=== PATIENT | male | born 1950 | race Caucasian/White ===

== ENCOUNTER 2022-05-10 09:55 | Outpatient (REF) | payer MEDICARE, OTHER, SELFPAY | END 2022-05-10 09:56 | disposition home or self-care (01) | LOC: HO.BBR 09:55 | PROVIDERS: Visit Provider Internal Medicine | DX: D45 Polycythemia vera (principal) | CPT/HCPCS: 85018; 99195 ==

== ENCOUNTER 2022-11-14 09:53 | Outpatient (REF) | payer MEDICARE, OTHER, SELFPAY | END 2022-11-14 09:54 | disposition home or self-care (01) | LOC: HO.BBR 09:53 | PROVIDERS: PCP Hospitalist; Visit Provider Internal Medicine | DX: D45 Polycythemia vera (principal) | CPT/HCPCS: 85018; 99195 ==

== ENCOUNTER 2023-03-13 13:47 | Outpatient (REF) | payer MEDICARE, OTHER, SELFPAY | END 2023-03-13 13:48 | disposition home or self-care (01) | LOC: HO.BBR 13:47 | PROVIDERS: PCP Hospitalist; Visit Provider Internal Medicine | DX: D75.1 Secondary polycythemia (principal) | CPT/HCPCS: 85014; 85018; 99195 ==

== ENCOUNTER 2023-06-12 13:39 | Outpatient (AMB) | payer MEDICARE, OTHER, SELFPAY ==
--- NOTE | 2023-06-12 14:08 | HO.NEPHOV ---
HPI HPI Comments History of Present Illness Details I had the privilege of seeing Chadwick in follow-up of his chronic kidney disease and hypertension. His blood sugar control is better. His blood pressure has been at goal. He has gained weight. He denies any chest pain, shortness of breath, proximal nocturnal dyspnea, orthopnea or pedal edema. He has no urinary symptoms. He is compliant with his medications. He avoids nonsteroidal anti-inflammatory medications. There were no new active complaints at the time this office visit. [facility] Medical History (Updated 06/25/23 @ 22:12 by Linwood Coyle MD) Chronic kidney disease, stage 3a Hypertension Surgical History (Updated 06/12/23 @ 14:17 by Arabella Patton MA) History of cataract surgery History of appendectomy H/O aortic valve replacement Hx of CABG Family History (Updated 06/12/23 @ 14:18 by Arabella Patton MA) Mother Aneurysm Father Heart attack Social History (Updated 06/12/23 @ 14:17 by Arabella Patton MA) Alcohol intake: never Patient Tobacco Use Status: Never used Tobacco Vital Signs 06/12/23 14:11 Height 5 ft 8 in Weight 189 lb BMI 28.7 BP 110/70 Blood Pressure Location Lt brachial Position Sitting Pulse 72 Pulse Source Pulse Oximeter Physical Exam Vital Signs: Last Vital Signs Pulse 72 06/12/23 14:11 BP 110/70 06/12/23 14:11 BMI result Body Mass Index 28.7 Const General: comfortable and no acute distress Orientation/consciousness: patient oriented x3 HEENT Head: Yes normocephalic Mouth: Normal oral and palatal mucosa present Eyes EOM: EOMs intact bilaterally Neck Neck: Yes supple Resp Auscultation: clear to auscultation bilaterally Cardio Jugular venous distension: no JVD Rate: regular rate Heart sounds: Murmur heart sound present GI Palpation (GI): Soft to palpation Auscultation: normal bowel sounds General: Yes no CVA tenderness Back/Spine/Pelvis Back: no CVA tenderness Skin General skin exam: no rashes or lesions noted Neuro General: patient oriented x3 and moves all extremities Extrem General: Yes no pedal edema Assessment & Plan Assessment & Plan (1) CKD (chronic kidney disease) stage 3, GFR 30-59 ml/min: Code(s): N18.30 - Chronic kidney disease, stage 3 unspecified Qualifiers: Chronic kidney disease stage 3 subtype: stage 3a (GFR 45-59) Qualified Code(s): N18.31 - Chronic kidney disease, stage 3a (2) Hypertension: Code(s): I10 - Essential (primary) hypertension Qualifiers: Hypertension type: primary hypertension Qualified Code(s): I10 - Essential (primary) hypertension (3) Diabetic nephropathy: Code(s): E11.21 - Type 2 diabetes mellitus with diabetic nephropathy Qualifiers: Diabetes mellitus type: type 2 Qualified Code(s): E11.21 - Type 2 diabetes mellitus with diabetic nephropathy Plan 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 He does not have any worsening proteinuria. His blood pressure is at goal at home. He is on Jardiance. He avoids nonsteroidal anti-inflammatories. He maintains good hydration. He is on statins. He is on Entresto as well. I did not make any medication changes today. Follow-up blood work ordered. Answered all questions. Follow-up appointment given. Orders: Orders Electrolytes 06/12/23 N18.30 - Chronic kidney disease, stage 3 unspecified, I10 - Essential (primary) hypertension Blood Urea Nitrogen 06/12/23 N18.30 - Chronic kidney disease, stage 3 unspecified, I10 - Essential (primary) hypertension Creatinine 06/12/23 N18.30 - Chronic kidney disease, stage 3 unspecified, I10 - Essential (primary) hypertension Calcium 06/12/23 N18.30 - Chronic kidney disease, stage 3 unspecified, I10 - Essential (primary) hypertension Vitamin D 25-OH Total 06/12/23 N18.30 - Chronic kidney disease, stage 3 unspecified, I10 - Essential (primary) hypertension Phosphorus 06/12/23 N18.30 - Chronic kidney disease, stage 3 unspecified, I10 - Essential (primary) hypertension Parathyroid Hormone Intact 06/12/23 N18.30 - Chronic kidney disease, stage 3 unspecified, I10 - Essential (primary) hypertension Medications: New cholecalciferol (vitamin D3) 1,250 mcg PO QWEEK 13 tabs 1RF 90 days Coding Level of Care Code Est Pt Level 4 (77575) Diagnoses Stage 3a chronic kidney disease N18.31 Chronic kidney disease stage 3 subtype: stage 3a (GFR 45-59) Primary hypertension I10 Hypertension type: primary hypertension Diabetic nephropathy associated with type 2 diabetes mellitus E11.21 Diabetes mellitus type: type 2 Results Reviewed Nephrology Results: No Data to Display
[2023-06-12 14:11] VITALS: BP 110/70; PULSE 72; BMI 28.7
== END 2023-06-12 14:44 | disposition home or self-care (01) ==
PROVIDERS: PCP Hospitalist; Visit Provider Internal Medicine Nephrology
DX: N18.31 Chronic kidney disease, stage 3a (principal); I10 Essential (primary) hypertension; E11.21 Type 2 diabetes mellitus with diabetic nephropathy
CPT/HCPCS: 99214

== ENCOUNTER → 2023-06-12 13:39 | Outpatient (BNVA) | payer MEDICARE, OTHER, SELFPAY | PROVIDERS: PCP Hospitalist; Visit Provider Internal Medicine Nephrology | DX: I12.9 Hypertensive chronic kidney disease with stage 1 through stage 4 chronic kidney disease, or unspecified chronic kidney disease (principal); E11.21 Type 2 diabetes mellitus with diabetic nephropathy; N18.31 Chronic kidney disease, stage 3a; Z95.1 Presence of aortocoronary bypass graft; Z95.2 Presence of prosthetic heart valve | CPT/HCPCS: 99212 ==

== ENCOUNTER 2023-07-16 08:55 | Outpatient (REF) | payer MEDICARE, OTHER, SELFPAY | END 2023-07-16 08:56 | disposition home or self-care (01) | LOC: HO.BBR 08:55 | PROVIDERS: PCP Hospitalist; Visit Provider Internal Medicine | DX: D75.1 Secondary polycythemia (principal) | CPT/HCPCS: 85018; 99195 ==

== ENCOUNTER 2023-11-12 09:01 | Outpatient (REF) | payer MEDICARE, OTHER, SELFPAY | END 2023-11-12 09:02 | disposition home or self-care (01) | LOC: HO.BBR 09:01 | PROVIDERS: PCP Hospitalist; Visit Provider Internal Medicine | DX: D45 Polycythemia vera (principal) | CPT/HCPCS: 85014; 85018; 99195 ==

== ENCOUNTER 2023-12-13 09:26 | Outpatient (AMB) | payer MEDICARE, OTHER, SELFPAY ==
--- NOTE | 2023-12-13 09:37 | HO.NEPHOV_ITS ---
Vital Signs 12/13/23 09:38 Height 5 ft 8 in Weight 192 lb BMI 29.2 BP 100/70 Blood Pressure Location Lt brachial Position Sitting Pulse 70 Pulse Source Pulse Oximeter Pulse Oximetry (%) 96 Oxygen Delivery Method Room Air Intake Visit Reasons: 6 mo fu/ Conf Numerical Control Tool Programmer Required: No Accompanied by: Self / Same As Patient Allergies No Known Allergies Allergy (Verified 12/13/23 09:42) HPI Comments Details: I had the privilege of seeing Chadwick in follow-up of his chronic kidney disease and hypertension. His blood sugar control is better. His blood pressure has been at goal. He denies any chest pain, shortness of breath, proximal nocturnal dyspnea, orthopnea or pedal edema. He has no urinary symptoms. He is compliant with his medications. He avoids nonsteroidal anti-inflammatory medications. He has been started on Amiodarone 3 months ago by executive vice president business development. HIs serum creatinine has gone up . There were no new active complaints at the time this office visit. [facility] Medical History (Updated 12/13/23 @ 10:04 by Linwood Coyle MD) Chronic kidney disease, stage 3a Hypertension Surgical History History of cataract surgery History of appendectomy H/O aortic valve replacement Hx of CABG Family History Mother Aneurysm Father Heart attack Social History Alcohol intake: never Patient Tobacco Use Status: Never used Tobacco Physical Exam Vital Signs: Last Vital Signs Pulse 70 12/13/23 09:38 BP 100/70 12/13/23 09:38 Pulse Ox 96 12/13/23 09:38 Oxygen Delivery Method Room Air 12/13/23 09:38 BMI result Body Mass Index 29.2 Const General: comfortable and no acute distress Orientation/consciousness: patient oriented x3 HEENT Head: Yes normocephalic Mouth: Normal oral and palatal mucosa present Eyes EOM: EOMs intact bilaterally Neck Neck: Yes supple Resp Auscultation: clear to auscultation bilaterally Cardio Jugular venous distension: no JVD Rate: regular rate GI Palpation (GI): Soft to palpation Auscultation: normal bowel sounds General: Yes no CVA tenderness Back/Spine/Pelvis Back: no CVA tenderness Skin General skin exam: no rashes or lesions noted Neuro General: patient oriented x3 and moves all extremities Extrem General: Yes no pedal edema Results Reviewed Nephrology Results: No Data to Display Assessment & Plan Assessment & Plan (1) ОЛЬГА (acute kidney injury): Code(s): N17.9 - Acute kidney failure, unspecified Category: Medical (2) Diabetic nephropathy: Code(s): E11.21 - Type 2 diabetes mellitus with diabetic nephropathy Category: Medical Qualifiers: Diabetes mellitus type: type 2 Qualified Code(s): E11.21 - Type 2 diabetes mellitus with diabetic nephropathy (3) Hypertension: Code(s): I10 - Essential (primary) hypertension Category: Medical Qualifiers: Hypertension type: primary hypertension Qualified Code(s): I10 - Essential (primary) hypertension (4) CKD (chronic kidney disease) stage 3, GFR 30-59 ml/min: Code(s): N18.30 - Chronic kidney disease, stage 3 unspecified Category: Medical Qualifiers: Chronic kidney disease stage 3 subtype: stage 3a (GFR 45-59) Qualified Code(s): N18.31 - Chronic kidney disease, stage 3a Plan 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 HI serum creatinine has gone up. I reduced his lasix to 20 mg daily. He is on Entresto and Jardiance. He ne eds a F/U ECHO. WE may have to hold his Entresto if his creatinine does not settle down. He does not have any worsening proteinuria. His blood pressure is at goal at home. He is on Jardiance. He avoids nonsteroidal anti- inflammatories. He maintains good hydration. He is on statins. He is on Entresto as well. I did not make any other medication changes today. Follow-up blood work ordered. Answered all questions. Follow-up appointment given. Orders: Orders Creatinine Today E11.21 - Type 2 diabetes mellitus with diabetic nephropathy, I10 - Essential (primary) hypertension, N17.9 - Acute kidney failure, unspecified, N18.31 - Chronic kidney disease, stage 3a Blood Urea Nitrogen Today E11.21 - Type 2 diabetes mellitus with diabetic nephropathy, I10 - Essential (primary) hypertension, N17.9 - Acute kidney failure, unspecified, N18.31 - Chronic kidney disease, stage 3a Electrolytes Today E11.21 - Type 2 diabetes mellitus with diabetic nephropathy, I10 - Essential (primary) hypertension, N17.9 - Acute kidney failure, un specified, N18.31 - Chronic kidney disease, stage 3a Coding Level of Care Code Est Pt Level 4 (72915) Diagnoses ОЛЬГА (acute kidney injury) N17.9 Diabetic nephropathy associated with type 2 diabetes mellitus E11.21 Diabetes mellitus type: type 2 Primary hypertension I10 Hypertension type: primary hypertension Stage 3a chronic kidney disease N18.31 Chronic kidney disease stage 3 subtype: stage 3a (GFR 45-59)
[2023-12-13 09:38] VITALS: BP 100/70; PULSE 70; O2SAT 96; BMI 29.2
== END 2023-12-13 10:09 | disposition home or self-care (01) ==
PROVIDERS: PCP Hospitalist; Visit Provider Internal Medicine Nephrology
DX: N17.9 Acute kidney failure, unspecified (principal); E11.21 Type 2 diabetes mellitus with diabetic nephropathy; I10 Essential (primary) hypertension; N18.31 Chronic kidney disease, stage 3a
CPT/HCPCS: 99214

== ENCOUNTER → 2023-12-13 09:26 | Outpatient (BNVA) | payer MEDICARE, OTHER, SELFPAY | PROVIDERS: PCP Hospitalist; Visit Provider Internal Medicine Nephrology | DX: I12.9 Hypertensive chronic kidney disease with stage 1 through stage 4 chronic kidney disease, or unspecified chronic kidney disease (principal); E11.22 Type 2 diabetes mellitus with diabetic chronic kidney disease; N18.31 Chronic kidney disease, stage 3a; E11.21 Type 2 diabetes mellitus with diabetic nephropathy; N17.9 Acute kidney failure, unspecified | CPT/HCPCS: 99212 ==

== ENCOUNTER 2024-03-13 10:49 | Outpatient (AMB) | payer MEDICARE, OTHER, SELFPAY ==
[2024-03-13 11:15] VITALS: BP 124/72; PULSE 70; O2SAT 95; BMI 29.6
--- NOTE | 2024-03-13 11:15 | HO.NEPHOV_ITS ---
Vital Signs 03/13/24 11:15 Height 5 ft 8 in Weight 194 lb 6 oz BMI 29.6 BP 124/72 Blood Pressure Location Lt brachial Position Sitting Pulse 70 Pulse Source Pulse Oximeter Pulse Oximetry (%) 95 Oxygen Delivery Method Room Air Intake Visit Reasons: 3 mon follow up/ CON Assistant Program Director Required: No Accompanied by: Self / Same As Patient Allergies No Known Allergies Allergy (Verified 03/13/24 11:18) HPI Comments Details: I had the privilege of seeing Chadwick in follow-up of his chronic kidney disease and hypertension. His blood sugar control is better. His blood pressure has been at goal. He denies any chest pain, shortness of breath, proximal nocturnal dyspnea, orthopnea or pedal edema. He has no urinary symptoms. He is compliant with his medications. He avoids nonsteroidal anti-inflammatory medications. He has been started on levothyroxine 25 mcg daily by business process coordinator. HIs serum creatinine has gone up . There were no new active complaints at the time this office visit. [facility] Medical History (Updated 12/13/23 @ 10:04 by Linwood Coyle MD) Chronic kidney disease, stage 3a Hypertension Surgical History History of cataract surgery History of appendectomy H/O aortic valve replacement Hx of CABG Family History Mother Aneurysm Father Heart attack Social History Alcohol intake: never Patient Tobacco Use Status: Never used Tobacco Physical Exam Vital Signs: Last Vital Signs Pulse 70 03/13/24 11:15 BP 124/72 03/13/24 11:15 Pulse Ox 95 03/13/24 11:15 Oxygen Delivery Method Room Air 03/13/24 11:15 BMI result Body Mass Index 29.6 Const General: comfortable and no acute distress Orientation/consciousness: patient oriented x3 HEENT Head: Yes normocephalic Mouth: Normal oral and palatal mucosa present Eyes EOM: EOMs intact bilaterally Neck Neck: Yes supple Resp Auscultation: clear to auscultation bilaterally Cardio Jugular venous distension: no JVD Rate: regular rate GI Palpation (GI): Soft to palpation Auscultation: normal bowel sounds General: Yes no CVA tenderness Back/Spine/Pelvis Back: no CVA tenderness Skin General skin exam: no rashes or lesions noted Neuro General: patient oriented x3 and moves all extremities Extrem General: Yes no pedal edema Results Reviewed Nephrology Results: No Data to Display Assessment & Plan Assessment & Plan (1) CKD (chronic kidney disease) stage 3, GFR 30-59 ml/min: Code(s): N18.30 - Chronic kidney disease, stage 3 unspecified Category: Medical Qualifiers: Chronic kidney disease stage 3 subtype: stage 3a (GFR 45-59) Qualified Code(s): N18.31 - Chronic kidney disease, stage 3a (2) Hypertension: Code(s): I10 - Essential (primary) hypertension Category: Medical Qualifiers: Hypertension type: primary hypertension Qualified Code(s): I10 - Essential (primary) hypertension (3) Diabetic nephropathy: Code(s): E11.21 - Type 2 diabetes mellitus with diabetic nephropathy Category: Medical Qualifiers: Diabetes mellitus type: type 2 Qualified Code(s): E11.21 - Type 2 diabetes mellitus with diabetic nephropathy Plan 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 His serum creatinine has marginally gone up. He is on Entresto and Jardiance. He needs a F/U ECHO. WE may have to hold his Entresto if his creatinine rises. He does not have any worsening proteinuria. His blood pressure is at goal at home. He avoids nonsteroidal anti-inflammatories. He maintains good hydration. He is on statins. I did not make any other medication changes today. Follow-up blood work ordered. Answered all questions. Follow-up appointment given Orders: Orders Blood Urea Nitrogen Today E11.21 - Type 2 diabetes mellitus with diabetic nephropathy, I10 - Essential (primary) hypertension, N18.31 - Chronic kidney disease, stage 3a Electrolytes Today E11.21 - Type 2 diabetes mellitus with diabetic nephropathy, I10 - Essential (primary) hypertension, N18.31 - Chronic kidney disease, stage 3a Creatinine Today E11.21 - Type 2 diabetes mellitus with diabetic nephropathy, I10 - Essential (primary) hypertension, N18.31 - Chronic kidney disease, stage 3a Medications: Changed From cholecalciferol (vitamin D3) 1,250 mcg PO .monthly 12 months 12 caps 1RF To cholecalciferol (vitamin D3) 1,250 mcg PO QWEEK 12 months 52 caps 1RF Coding Level of Care Code Est Pt Level 4 (68728) Diagnoses Stage 3a chronic kidney disease N18.31 Chronic kidney disease stage 3 subtype: stage 3a (GFR 45-59) Primary hypertension I10 Hypertension type: primary hypertension Diabetic nephropathy associated with type 2 diabetes mellitus E11.21 Diabetes mellitus type: type 2
== END 2024-03-13 11:47 | disposition home or self-care (01) ==
PROVIDERS: PCP Hospitalist; Visit Provider Internal Medicine Nephrology
DX: N18.31 Chronic kidney disease, stage 3a (principal); I10 Essential (primary) hypertension; E11.21 Type 2 diabetes mellitus with diabetic nephropathy
CPT/HCPCS: 99214

== ENCOUNTER → 2024-03-13 10:49 | Outpatient (BNVA) | payer MEDICARE, OTHER, SELFPAY | PROVIDERS: PCP Hospitalist; Visit Provider Internal Medicine Nephrology | DX: I12.9 Hypertensive chronic kidney disease with stage 1 through stage 4 chronic kidney disease, or unspecified chronic kidney disease (principal); E11.21 Type 2 diabetes mellitus with diabetic nephropathy; E11.22 Type 2 diabetes mellitus with diabetic chronic kidney disease; N18.31 Chronic kidney disease, stage 3a | CPT/HCPCS: 99212 ==

== ENCOUNTER 2024-03-17 09:14 | Outpatient (REF) | payer MEDICARE, OTHER, SELFPAY | END 2024-03-17 09:15 | disposition home or self-care (01) | LOC: HO.BBR 09:14 | PROVIDERS: PCP Hospitalist; Visit Provider Internal Medicine | DX: D45 Polycythemia vera (principal) | CPT/HCPCS: 85014; 85018; 99195 ==

== ENCOUNTER 2024-09-16 11:57 | Outpatient (AMB) | payer MEDICARE, OTHER, SELFPAY ==
--- NOTE | 2024-09-16 12:00 | HO.NEPHOV_ITS ---
Vital Signs 09/16/24 12:01 Height 5 ft 8 in Weight 189 lb 6 oz BMI 28.8 BP 118/60 Blood Pressure Location Rt brachial Position Sitting Pulse 71 Pulse Source Pulse Oximeter Pulse Oximetry (%) 97 Oxygen Delivery Method Room Air Intake Visit Reasons: 6mon follow up-[facility] Industrial Recruiter Required: No Accompanied by: Self / Same As Patient Allergies No Known Allergies Allergy (Verified 09/16/24 12:00) HPI Comments Details: Chadwick was seen in follow-up of his chronic kidney disease and hypertension. His blood sugar control is better. His blood pressure has been at goal. He denies any chest pain, shortness of breath, proximal nocturnal dyspnea, orthopnea or pedal edema. He has no urinary symptoms. He is compliant with his medications. He avoids nonsteroidal anti-inflammatory medications. His serum creatinine is stable. He has been having acute gout on his left foot and finds difficulty ambulating. He has not been taking any NSAID's. [facility] Medical History (Updated 09/16/24 @ 22:11 by Linwood Coyle MD) Chronic kidney disease, stage 3a Hypertension Surgical History History of cataract surgery History of appendectomy H/O aortic valve replacement Hx of CABG Family History Mother Aneurysm Father Heart attack Social History Alcohol intake: never Patient Tobacco Use Status: Never used Tobacco Review of Systems Const All systems reviewed & are unremarkable except as noted in HPI and below Physical Exam Vital Signs: Last Vital Signs Pulse 71 09/16/24 12:01 BP 118/60 09/16/24 12:01 Pulse Ox 97 09/16/24 12:01 Oxygen Delivery Method Room Air 09/16/24 12:01 BMI result Body Mass Index 28.8 Const General: comfortable and no acute distress Orientation/consciousness: patient oriented x3 HEENT Head: Yes normocephalic Mouth: Normal oral and palatal mucosa present Eyes EOM: EOMs intact bilaterally Neck Neck: Yes supple Resp Auscultation: clear to auscultation bilaterally Cardio Jugular venous distension: no JVD Rate: regular rate GI Palpation (GI): Soft to palpation Auscultation: normal bowel sounds Neuro General: patient oriented x3 and moves all extremities Extrem Other: Left foot MCP joints erythematous, tender and swollen Results Reviewed Nephrology Results: No Data to Display Assessment & Plan Assessment & Plan (1) CKD (chronic kidney disease) stage 3, GFR 30-59 ml/min: Code(s): N18.30 - Chronic kidney disease, stage 3 unspecified Category: Medical Qualifiers: Chronic kidney disease stage 3 subtype: stage 3a (GFR 45-59) Qualified Code(s): N18.31 - Chronic kidney disease, stage 3a (2) Hypertension: Code(s): I10 - Essential (primary) hypertension Category: Medical Qualifiers: Hypertension type: primary hypertension Qualified Code(s): I10 - Essential (primary) hypertension (3) Diabetic nephropathy: Code(s): E11.21 - Type 2 diabetes mellitus with diabetic nephropathy Category: Medical Qualifiers: Diabetes mellitus type: type 2 Qualified Code(s): E11.21 - Type 2 diabetes mellitus with diabetic nephropathy (4) Gout attack: Code(s): M10.9 - Gout, unspecified Category: Medical Qualifiers: Gout site: foot Gout etiology: idiopathic Laterality: left Qualified Code(s): 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 His serum creatinine is stable. He is on Entresto and Jardiance. He had a F/U ECHO. WE may have to hold his Entresto if his creatinine rises. He does not have any worsening proteinuria. His blood pressure is at goal at home. He avoids nonsteroidal anti- inflammatories. He maintains good hydration. He is on statins. I started him on Prednsione PO for a week. He is aware that he needs to monitor his blood sugar closely & adjust insulin during that time. He will be a candidate for Allopurinol at the next visit. I did not make any other medication changes today. Answered all questions. Medications: New prednisone 20 mg PO DAILY 7 tabs 0RF Coding Level of Care Code Est Pt Level 4 (83878) Diagnoses Stage 3a chronic kidney disease N18.31 Chronic kidney disease stage 3 subtype: stage 3a (GFR 45-59) Primary hypertension I10 Hypertension type: primary hypertension Diabetic nephropathy associated with type 2 diabetes mellitus E11.21 Diabetes mellitus type: type 2 Acute idiopathic gout of left foot M10.072 Gout site: foot Gout etiology: idiopathic Laterality: left
[2024-09-16 12:01] VITALS: BP 118/60; PULSE 71; O2SAT 97; BMI 28.8
--- OUTSIDE RECORDS SUMMARY | 2024-09-16 14:43 | XMS_ITS ---
Author Organization [facility] Address [address] [place] [id number] Care Team Providers Care Buoy Tender Name Role Phone DIMITRY HUGHES Primary Care Provider [phone] Results Component Value Reference Range Notes Hemoglobin A1c Reviewed date:07/20/2024 07:20:32 PM Interpretation: Performing Lab:[facility], [address] [place] [address], Phone - [phone], Director - [facility] Notes/Report: Hemoglobin A1c 6.3 Reference Range: [place] Diabetes [employer] (ADA) Guidelines: <5.7: Decreased risk for diabetes 5.7 - 6.4: Increased risk for diabetes >6.4: Ongoing Hyperglycemia of any cause <7.0: Glycemic control for adults with diabetes Estimated Average Glucose 134 REASON FOR VISIT Glyburide alternative? Medications Medication SIG (Take, Route, Fr equency, Duration) Notes Start Date End Date Status glipiZIDE ER 5 MG 1 tablet with breakf ast Orally Once a day for 30 days 05/26/2024 Active Encounters Encounter Location Date Provider Diagnosis [address] [id number] 05/26/2024 DIMITRY HUGHES Type 2 diabetes mellitus with unspecified complications E11.8 Assessments Encounter Date Diagnosis (ICD Code) Assessment Notes Treatment Notes Treatment Clinical Notes Section Notes 05/26/2024 Type 2 diabetes mellitus with unspecified complications (ICD-10 - E11.8) Plan Of Treatment Medication Medication Name Sig Start Date Stop Date Notes glipiZIDE ER 5 MG 1 tablet with breakf ast Orally Once a day for 30 days 05/26/2024 glyBURIDE 5 MG TAKE 2 TABLETS BY MOUTH TWICE A DAY Next Appt Details Provider Name:DIMITRY HUGHES , 02/09/2025 03:00:00 PM, [address] [address], [place], [phone], Progress Notes * Chadwick CARDOSODOB:1950 (73 yo M)Acc No.[id number]:05/26/2024 Patient:?Chadwick CARDOSO :1950???Age:73 Y???Sex:Male Phone: Address:[address] [place] [address], [place] [address] * Refills? Start glipiZIDE ER Tablet Extended Release 24 Hour, 5 MG, Orally, 30, 1 tablet with breakfast, Once a day, 30 days, Refills=5 Stop glyBURIDE Tablet, 5 MG, TAKE 2 TABLETS BY MOUTH TWICE A DAY Subjective: * Chief Complaints: * ???Glyburide alternative? * Medical History:? * Surgical History:? * Hospitalization/Major Diagno stic Procedure:? * Medications:? Objective: * Vitals:? * Physical Examination:? Assessment: * Assessment: 1.?Type 2 diabetes mellitus with unspecified complications - E11.8??? Plan: * Treatment: 2.?Others? Start glipiZIDE ER Tablet Extended Release 24 Hour, 5 MG, 1 tablet with breakfast, Orally, Once a day, 30 days, 30, Refills 5;?Stop glyBURIDE Tablet, 5 MG, TAKE 2 TABLETS BY MOUTH TWICE A DAY.?? * Procedure Codes:? * true * Date:? Generated for Piter ly/Curtis/eTstanislavsmitting on:?09/16/2024 02:42 PM EDT
--- OUTSIDE RECORDS SUMMARY | 2024-09-16 14:43 | XMS_ITS | Encounter Summary ---
Author Organization [facility] Address [address] [place] [address] Care Team Providers Care [place] Name Role Phone Noreen Sumner MD Primary Care Provider [phone] Encounter Details Date Type Department Care Team (Latest Contact Info) Description 08/26/2024 9:00 AM EST Ancillary Procedure [facility] Cardiology [facility] [address] [facility] [address] [place] [phone] Encounter for adjustment or management of cardiac device Social History Tobacco Use Types Packs/Day Years Used Date Smoking Tobacco: Former Cigarettes Q uit: 07/09/2003 Smokeless Tobacco: Never Alcohol Use Standard Drinks/Week Comments No 0 (1 standard drink = 0.6 oz pur e alcohol) Sex and Gender Information Value Date Recorded Sex Assigned at Male 05/21/2024 4:54 AM EST Legal Sex Male 2:25 PM EST Gender Identity Male 05/21/2024 4:54 AM EST Sexual Orientation Choose not to disclose 2023 4:54 AM EST documented as of this encounter Plan of Treatment Upcoming Encounters Date Type Department Care Team (Late st Contact Info) Description 01/27/2025 8:50 AM EDT Office Visit [facility] Cardiology [address] [place] [phone] Sergei Fofana MD [address] [place] [address] [address] [place], [place] [id number] 06/17/2025 9:00 AM EST Office Visit [facility] Hematology Oncology [address] [place] [phone] Max Butcher MD [address] [place] [address] 08/26/2025 9:00 AM EST Ancillary Procedure [facility] [address] [place] [address] documented as of this encounter Procedures Procedure Name Priority Date/Time Associated Diagnosis Comments CARDIAC DEVICE CHECK- IN CLINIC- [facility]J Routine 08/26/2024 9:03 AM EST Encounter for adjustment or management of cardiac device documented in this encounter Results * CARDIAC DEVICE CHECK- IN CLINIC- MURJ (08/26/2024 9:03 AM EST) Date Time Interrogation Session [id number] CV DEVICE CHECK Implantable Pulse Generator 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 [employer] CV DEVICE CHECK Implantable Pulse Generator Type REGISTRATION COORDINATOR-D CV DEVICE CHECK Implantable Pulse Generator Model Unify Assura [id number] CV DEVICE CHECK Implantable Pulse Generator Serial Number [id number] CV DEVICE CHECK Implantable Pulse Generator Implant Date [id number] CV DEVICE CHECK Battery Status Middle of Service CV DEVICE CHECK Tashi Statistic RA Percent Paced 18.00 CV DEVICE CHECK Tashi Statistic RV Percent Paced 96.00 CV DEVICE CHECK REGISTRATION COORDINATOR Statistic REGISTRATION COORDINATOR Percent Paced 96.00 CV DEVICE CHECK Lead Channel Sensing Intrinsic Amplitude 5.000 CV DEVICE CHECK Lead Channel Impedance Value 310 CV DEVICE CHECK Lead Channel Pacing Threshold Amplitude 0.750 CV DEVICE CHECK Lead Channel Pacing Threshold Pulse Width 0.5 CV DEVICE CHECK Lead Channel RA Pacing Threshold Date 2024-08-26 CV DEVICE CHECK Lead Channel Setting Pacing Amplitude 2.000 CV DEVICE CHECK Lead Channel Setting Pacing Pulse Width 0.5 CV DEVICE CHECK Lead Channel Sensing Intrinsic Amplitude 12.000 CV DEVICE CHECK Lead Channel Setting Sensing Sensitivity 0.50 CV DEVICE CHECK Lead Channel Impedance Value 490 CV DEVICE CHECK Lead Channel Pacing Threshold Amplitude 1.000 CV DEVICE CHECK Lead Channel Pacing Threshold Pulse Width 0.5 CV DEVICE CHECK Lead Channel RV Pacing Threshold Date 2024-08-26 CV DEVICE CHECK Lead Channel Setting Pacing Amplitude 2.130 CV DEVICE CHECK Lead Channel Setting Pacing Pulse Width 0.5 CV DEVICE CHECK Lead Channel Impedance Value 330 CV DEVICE CHECK Lead Channel Pacing Threshold Amplitude 1.000 CV DEVICE CHECK Lead Channel Pacing Threshold Pulse Width 0.5 CV DEVICE CHECK Lead Channel Pacing Threshold Date 2024-08-26 CV DEVICE CHECK Lead Channel Setting Pacing Amplitude 2.250 CV DEVICE CHECK Lead Channel Setting Pacing Pulse Width 0.5 CV DEVICE CHECK Tashi Setting Mode (NBG Code) DDD CV DEVICE CHECK Ventricular chambers paced during REGISTRATION COORDINATOR pacing. LV -> RV CV DEVICE CHECK Tashi Setting Lower Rate Limit 70 CV DEVICE CHECK Tashi Setting AT Mode Switch Rate 180 CV DEVICE CHECK Tashi Setting Maximum Tracking Rate 120 CV DEVICE CHECK Tashi Setting Maximum Sensor Rate 120 CV DEVICE CHECK Tashi Setting PAV Delay 150 CV DEVICE CHECK Tashi Setting JOHN Delay 120 CV DEVICE CHECK REGISTRATION COORDINATOR LV-RV Delay 20 CV D EVICE CHECK Zone Setting Type Category VF CV DEVICE CHECK Rate 200 CV DEVICE CHECK Therapies ATP While Charging, 36J, 40J, 40J CV DEVICE CHECK Zone Setting Status On CV DEVICE CHECK Zone ID 1 CV DEVICE CHECK Zone Setting Type Category VT-1 CV DEVICE CHECK Rate 130 CV DEVICE CHECK Therapies 3 x Scan CV DEVICE CHECK Zone Setting Status On CV DEVICE CHECK Zone ID 2 CV DEVICE CHECK Zone Setting Type Category VT-2 CV DEVICE CHECK Rate 150 CV DEVICE CHECK Therapies 3 x Scan + ATP, 25J, 36J, 40J CV DEVICE CHECK Zone Setting Status On CV DEVICE CHECK Zone ID 3 CV DEVICE CHECK Date of Service 2024-08-26 CV DEVICE CHECK Anatomical Region Laterality Modality Device Interroga tion 08/26/2024 Impressions 08/27/2024 9:31 AM EST Normal In-Office: No Events * Normal Device Function * Alerts or events: No sustained ventricular events noted * Battery: MOS, 1.60 yrs * Sensing, impedance and thresholds reviewed and tested * Presenting Rhythm: AP - BP 70's * Underlying Rhythm: - VS 60's * Heart Rate Histograms reviewed * Pacing and Detection Parameters were evaluated Heart Failure Diagnostic: Stable * Heart failure diagnostics assessed through the device * Status: Stable * No overt HF present Narrative Procedure Note Steve Pickard MD - 08/27/2024 IMPRESSION: Normal In-Office: No Events * Normal Device Function * Alerts or events: No sustained ventricular events noted * Battery: MOS, 1.60 yrs * Sensing, impedance and thresholds reviewed and tested * Presenting Rhythm: AP - BP 70's * Underlying Rhythm: - VS 60's * Heart Rate Histograms reviewed * Pacing and Detection Parameters were evaluated Heart Failure Diagnostic: Stable * Heart failure diagnostics assessed through the device * Status: Stable * No overt HF present us Order Referral Cardiovascular CV IMPLANTABLE CAR DIAC DEVICE PROCEDURES Final Result documented in this encounter Visit Diagnoses Diagnosis Encounter for adjustment or management of cardiac device Encounter for adjustment or management of cardiac device documented in this encounter Care Teams [place] Relationship Specialty Start Date End Date Noreen Sumner MD [address] [place] [phone] PCP - General Internal Medicine 03/17/21 documented as of this encounter
--- OUTSIDE RECORDS SUMMARY | 2024-09-16 14:43 | XMS_ITS | Patient Health Record ---
Author Organization [facility] Address [address] [place] [address] Care Team Providers Care Speech And Language Clinician Name Role Phone MICHAELGamalile DIMITRY Primary Care Provider Allergies No Known Allergies Results Component Value Reference Range Notes Hgb A1c with eAG Estimation- [id number] Reviewed date:01/30/2024 08:30:53 AM Interpretation: Performing Lab:[facility], [address] [place] [address], Phone - [phone], Director - Evin Notes/Report: Hemoglobin A1c 7.1 4.8-5.6 % . Prediabetes: 5.7 - 6.4 Diabetes: >6.4 Glycemic control for adults with diabetes: <7.0 Estim. Avg Glu (eAG) 157 Hemoglobin A1c Reviewed date:07/20/2024 07:20:32 PM Interpretation: Performing Lab:[facility], [address] [place] [address], Phone - [phone], Director - Padmini Notes/Report: Hemoglobin A1c 6.3 Reference Range: [place] [employer] (ADA) Guidelines: <5.7: Decreased risk for diabetes 5.7 - 6.4: Increased risk for diabetes >6.4: Ongoing Hyperglycemia of any cause <7.0: Glycemic control for adults with diabetes Estimated Average Glucose 134 Reason For Referral Reason Evaluation and manag ement Diagnosis 1 Tinea pedis (B35.3) Referral Organization [facility] Referring Provider First Name DIMITRY Referring Provider Last Name MICHAELGamaliel Referring Provider Speciality Internal M edicine Referred Provider Specialty Podiatry General Notes Referral sent to [facility] in [place] - Dept will call patient for scheduling.Ana Luisa Latraya 02/04/2024 01:22:21 PM > Referral Priority Routine Medications Medication SIG (Take, Route, Frequency, Duration) Notes Start Date End Date Status Fish Oil 1000 MG as directed Orally 3 capsules daily Active BD Pen Needle Areli 2nd Gen 32G X 4 MM USE ONCE DAILY for 30 Active Warfarin Sodium 5 MG as directed Orally Daily Followed by cardiology Active Clotrimazole 1 % 1 application Externally Twice a day for 28 days 12/21/2022 Active Furosemide 40 MG 1 TABLET Orally Once a day for 90 days Active Ozempic (0.25 or 0.5 MG/DOSE) 2 MG/1.5ML 0.25 mg Subcutaneous once a week for 30 days Active Amiodarone HCl 100 MG 1 tablet Orally Twice a day Active Lantus 100 UNIT/ML 40 units in the evening Subcutaneous Once a day or as directed for 30 days 09/11/2023 Active Aspirin 81 MG 1 tablet Orally Once a day Active glipiZIDE ER 5 MG 1 tablet with breakfast Orally Once a day for 30 days 05/26/2024 Active Entresto 24-26 MG 1 tablet Orally Twice a day Active Carvedilol 25 MG 1 tablet with food Orally Twice a day for 90 days Active Jardiance 25 MG 1 tablet Orally Once a day Active Atorvastatin Calcium 80 MG 1 tablet Orally Once a day Active Prevnar 20 0.5 ML as directed Intramuscular 1 for 365 days 12/19/2021 Not-Taking Immunizations Vaccine Route Administration Date Status Comme nts COVID Unknown 10/11/2020 Administered moderna 2nd shot COVID Moderna Unknown 09/09/2020 Administered COVID Moderna Unknown 10/07/2020 Administered COVID Moderna Unknown 03/18/2021 Administered COVID Moderna Unknown 10/18/2021 Administered COVID-19 Moderna Unknown 05/23/2022 Administered Flu Unknown 04/13/2023 Administered High Dose Fluzone +65 IM Intramuscular 06/08/2022 Administered Tdap IM Intramuscular 12/21/2022 Administered Social History Tobacco Use: Social History Observation Description Date Details (start date - stop date) Former Smoker NA - NA Tobacco Use/Smoking Question Answer Notes Are you a former smoker How long has it been since you last smoked? > 10 years Alcohol Screen (Audit-C) Question Answer Notes Did you have a drink containing alcohol in the p ast year? No Points 0 Interpretation Negative Section Notes: Homosexual Homosexual Homosexual Homosexual Homosexual Homosexual Homosexual Problems Problem Type SNOMED Code ICD Code Onset Dates Problem Status W/U Status Risk Notes Problem Polycythemia vera (802444524) Polycythemia vera (D45) Active confirmed Problem Disorder due to type 2 diabetes mellitus (760323019) Type 2 diabetes mellitus with unspecified complications (E11.8) Active confirmed Problem Mixed hyperlipidemia (493724643) Mixed hyperlipidemia (E78.2) Active confirmed Problem Essential hypertension (23316555) Essential (primary) hypertension (I10) Active confirmed Problem Atherosclerotic heart disease of [place] coronary artery without angina pectoris (513944019432920) Atherosclerotic heart disease of [place] coronary artery without angina pectoris (I25.10) Active confirmed Problem 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 (606558429) 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) Active confirmed Problem Chronic systolic heart failure (712848336) Chronic systolic (congestive) heart failure (I50.22) Active confirmed Problem Endocardial thrombosis (44519061) Intracardiac thrombosis, 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 confirmed Problem Cardiac pacemaker in situ (598958961) Presence of cardiac pacemaker (Z95.0) Active confirmed Problem Automatic implantable cardiac defibrillator in situ (169134484) Presence of automatic (implantable) cardiac defibrillator (Z95.810) Active confirmed Vital Signs Heart Rate 70 /min 07/23/2024 Temperature 98.4 degrees Fahrenheit 07/23/2024 Blood pressure diastolic 70 mm Hg 07/23/2024 Oximetry 97 % 07/23/2024 Height 67 in 07/23/2024 Blood pressure systolic 110 mm Hg 07/23/2024 Weight 187.9 lbs 07/23/2024 BMI 29.43 kg/m2 07/23/2024 Encounters Encounter Location Date Provider Diagnosis [address] [address] 02/04/2024 DIMITRY HUGHES Encounter for genera l adult medical examination without abnormal findings Z00.00 ; Type 2 diabetes mellitus with unspecified complications E11.8 ; Atherosclerosis of coronary artery bypass graft(s) without angina pectoris I25.810 ; Chronic systolic (congestive) heart failure I50.22 ; Essential (primary) hypertension I10 and Mixed hyperlipidemia E78.[address] [place] [address] 07/23/2024 DIMITRY HUGHES Type 2 diabetes shaun itus with unspecified complications E11.8 ; Atherosclerosis of coronary artery bypass graft(s) without angina pectoris I25.810 ; Intracardiac thrombosis, not elsewhere classified I51.3 ; Essential (primary) hypertension I10 ; Mixed hyperlipidemia E78.2 and Encounter for screening for malignant neoplasm of prostate Z12.[address] [place] [address] 05/26/2024 DIMITRY HUGHES Type 2 diabetes shaun itus with unspecified complications E11.[address] [place] [address] 08/06/2024 DIMITRY HUGHES Assessments Encounter Date Diagnosis (ICD Code) Assessment Notes Treatment Notes Treatment Clinical Notes Section Notes 02/04/2024 Type 2 diabetes mellitus with unspecified complications (ICD-10 - E11.8) Mr. Murillo is a 73 year old gentleman with insulin-dependent diabetes mellitus type II, CAD/CABG x3 and sees Dr. Ervin, CHF s/p ICD placement, clot in the left ventricle on Warfarin, CKD which he follows up with Dr. Coyle and bilateral varicose veins s/p ablation here for Medicare annual wellness visit. Plan is as follows: Type II diabetes mellitus with neuropathy. Last A1c improved from 7.5 to 7.1. He is on right medications. He has seen his chief architect in the past 1 year. Foot care discussed. Referred to Podiatry. Check A1c in 6 months. Hypertension. Blood pressure well controlled on current regimen. Electrocardiogram is paced. Hyperlipidemia. Continue current regimen. CAD. He is on right medications and he sees Dr. Ervin. He is stable. CHF which is compensated and his EF is 20-25% and status post ICD placement and he is not in volume overload and is asymptomatic. He follows up with girl friday. He is on right medications. Monitor weight and avoid salt intake. If there is weight gain he will inform us. Polycythemia vera. He sees Dr. Butcher. Chronic kidney disease stage 3b. He does not appear to be in volume overload. Advised appropriate hydration. Avoid NSAIDs. He sees Dr. Coyle. Tinea pedis. Foot care discussed. Referred to Podiatry. Class 1 obesity. Advised dietary restrictions and regimental exercise. Goal is to lose 5-6 lbs a month. Eye screening. He sees his chief architect regularly. Dental screening. He sees dentist regularly. Colon cancer screening. He had his colonoscopy done last year Immunizations. He is up-to-date on his COVID, TDAP and influenza vaccinations. HCP is. Neftali his son and he is full code Blood work reviewed with patient and questions answered. Screening blood work before next appointment. General health concerns discussed with patient. Scribe services used to formulate this note under HIPAA compliance and under [place] law mandated for scribe services. Patient aware of service. Verbal consent and written consent taken from the patient. Patient understands and verbalizes understanding of the scribes services and all questions answered regarding scribes services. Patient agrees to use of scribes services. 02/04/2024 Encounter for general adult medical examination without abnormal findings (ICD-10 - Z00.00) Mr. Murillo is a 73 year old gentleman with insulin-dependent diabetes mellitus type II, CAD/CABG x3 and sees Dr. Ervin, CHF s/p ICD placement, clot in the left ventricle on Warfarin, CKD which he follows up with Dr. Coyle and bilateral varicose veins s/p ablation here for Medicare annual wellness visit. Plan is as follows: Type II diabetes mellitus with neuropathy. Last A1c improved from 7.5 to 7.1. He is on right medications. He has seen his chief architect in the past 1 year. Foot care discussed. Referred to Podiatry. Check A1c in 6 months. Hypertension. Blood pressure well controlled on current regimen. Electrocardiogram is paced. Hyperlipidemia. Continue current regimen. CAD. He is on right medications and he sees Dr. Ervin. He is stable. CHF which is compensated and his EF is 20-25% and status post ICD placement and he is not in volume overload and is asymptomatic. He follows up with girl friday. He is on right medications. Monitor weight and avoid salt intake. If there is weight gain he will inform us. Polycythemia vera. He sees Dr. Butcher. Chronic kidney disease stage 3b. He does not appear to be in volume overload. Advised appropriate hydration. Avoid NSAIDs. He sees Dr. Coyle. Tinea pedis. Foot care discussed. Referred to Podiatry. Class 1 obesity. Advised dietary restrictions and regimental exercise. Goal is to lose 5-6 lbs a month. Eye screening. He sees his chief architect regularly. Dental screening. He sees dentist regularly. Colon cancer screening. He had his colonoscopy done last year Immunizations. He is up-to-date on his COVID, TDAP and influenza vaccinations. HCP is. Neftali his son and he is full code Blood work reviewed with patient and questions answered. Screening blood work before next appointment. General health concerns discussed with patient. Scribe services used to formulate this note under HIPAA compliance and under [place] law mandated for scribe services. Patient aware of service. Verbal consent and written consent taken from the patient. Patient understands and verbalizes understanding of the scribes services and all questions answered regarding scribes services. Patient agrees to use of scribes services. 07/23/2024 Type 2 diabetes mellitus with unspecified complications (ICD-10 - E11.8) Chadwick is 72 years old gentleman with insulin-dependent DM type II, coronary artery disease, status post CABG, CHF, status post ICD placement, hypertension, hyperlipidemia, polycythemia vera, chronic kidney disease is here today for follow-up. Plan is as follows Insulin-dependent DM type II. His A1c has improved and it was 6.3 which is in a very good range. He is on the right medications. He follows up with human resources services specialist Dr. Coyle. He is seen chief architect. Foot care discussed with the patient. Repeat hemoglobin A1c before next appointment. He is on statins. Coronary artery disease/intracardi ac thrombus/CHF/statu s post ICD placement. He is stable cardiac gutierres. He is on warfarin and INR is monitored by cardiology. His ICD is interrogated on a regular basis. He does not appear to be in volume overload and he is currently on Entresto 24/26 mg and also on Jardiance. He follows up with Dr. Fofana. Hypertension/hyper lipidemia. Blood pressure well controlled on current regimen and last lipid panel was within normal limits. Chronic kidney disease. He is stable at this point and he follows up with Dr. Leonides Polycythemia vera. He follows up with Dr. Butcher and he has lobotomies every 6 months. Screening blood work before next appointment 05/26/2024 Type 2 diabetes mellitus with unspecified complications (ICD-10 - E11.8) 07/23/2024 Atherosclerosis of coronary artery bypass graft(s) without angina pectoris (ICD-10 - I25.810) Chadwick is 72 years old gentleman with insulin-dependent DM type II, coronary artery disease, status post CABG, CHF, status post ICD placement, hypertension, hyperlipidemia, polycythemia vera, chronic kidney disease is here today for follow-up. Plan is as follows Insulin-dependent DM type II. His A1c has improved and it was 6.3 which is in a very good range. He is on the right medications. He follows up with human resources services specialist Dr. Coyle. He is seen chief architect. Foot care discussed with the patient. Repeat hemoglobin A1c before next appointment. He is on statins. Coronary artery disease/intracardi ac thrombus/CHF/statu s post ICD placement. He is stable cardiac gutierres. He is on warfarin and INR is monitored by cardiology. His ICD is interrogated on a regular basis. He does not appear to be in volume overload and he is currently on Entresto 24/26 mg and also on Jardiance. He follows up with Dr. Fofana. Hypertension/hyper lipidemia. Blood pressure well controlled on current regimen and last lipid panel was within normal limits. Chronic kidney disease. He is stable at this point and he follows up with Dr. Coyle Polycythvon nicholas. He follows up with Dr. Butcher and he has lobotomies every 6 months. Screening blood work before next appointment 02/04/2024 Atherosclerosis of coronary artery bypass graft(s) without angina pectoris (ICD-10 - I25.810) Mr. Murillo is a 73 year old gentleman with insulin-dependent diabetes mellitus type II, CAD/CABG x3 and sees Dr. Ervin, CHF s/p ICD placement, clot in the left ventricle on Warfarin, CKD which he follows up with Dr. Coyle and bilateral varicose veins s/p ablation here for Medicare annual wellness visit. Plan is as follows: Type II diabetes mellitus with neuropathy. Last A1c improved from 7.5 to 7.1. He is on right medications. He has seen his chief architect in the past 1 year. Foot care discussed. Referred to Podiatry. Check A1c in 6 months. Hypertension. Blood pressure well controlled on current regimen. Electrocardiogram is paced. Hyperlipidemia. Continue current regimen. CAD. He is on right medications and he sees Dr. Ervin. He is stable. CHF which is compensated and his EF is 20-25% and status post ICD placement and he is not in volume overload and is asymptomatic. He follows up with girl friday. He is on right medications. Monitor weight and avoid salt intake. If there is weight gain he will inform us. Polycythemia vera. He sees Dr. Butcher. Chronic kidney disease stage 3b. He does not appear to be in volume overload. Advised appropriate hydration. Avoid NSAIDs. He sees Dr. Colye. Tinea pedis. Foot care discussed. Referred to Podiatry. Class 1 obesity. Advised dietary restrictions and regimental exercise. Goal is to lose 5-6 lbs a month. Eye screening. He sees his chief architect regularly. Dental screening. He sees dentist regularly. Colon cancer screening. He had his colonoscopy done last year Immunizations. He is up-to-date on his COVID, TDAP and influenza vaccinations. HCP is. Neftali his son and he is full code Blood work reviewed with patient and questions answered. Screening blood work before next appointment. General health concerns discussed with patient. Scribe services used to formulate this note under HIPAA compliance and under [place] law mandated for scribe services. Patient aware of service. Verbal consent and written consent taken from the patient. Patient understands and verbalizes understanding of the scribes services and all questions answered regarding scribes services. Patient agrees to use of scribes services. 02/04/2024 Chronic systolic (congestive) heart failure (ICD-10 - I50.22) Mr. Murillo is a 73 year old gentleman with insulin-dependent diabetes mellitus type II, CAD/CABG x3 and sees Dr. Ervin, CHF s/p ICD placement, clot in the left ventricle on Warfarin, CKD which he follows up with Dr. Coyle and bilateral varicose veins s/p ablation here for Medicare annual wellness visit. Plan is as follows: Type II diabetes mellitus with neuropathy. Last A1c improved from 7.5 to 7.1. He is on right medications. He has seen his chief architect in the past 1 year. Foot care discussed. Referred to Podiatry. Check A1c in 6 months. Hypertension. Blood pressure well controlled on current regimen. Electrocardiogram is paced. Hyperlipidemia. Continue current regimen. CAD. He is on right medications and he sees Dr. Ervin. He is stable. CHF which is compensated and his EF is 20-25% and status post ICD placement and he is not in volume overload and is asymptomatic. He follows up with girl friday. He is on right medications. Monitor weight and avoid salt intake. If there is weight gain he will inform us. Polycythemia vera. He sees Dr. Butcher. Chronic kidney disease stage 3b. He does not appear to be in volume overload. Advised appropriate hydration. Avoid NSAIDs. He sees Dr. Coyle. Tinea pedis. Foot care discussed. Referred to Podiatry. Class 1 obesity. Advised dietary restrictions and regimental exercise. Goal is to lose 5-6 lbs a month. Eye screening. He sees his chief architect regularly. Dental screening. He sees dentist regularly. Colon cancer screening. He had his colonoscopy done last year Immunizations. He is up-to-date on his COVID, TDAP and influenza vaccinations. HCP is. Neftali his son and he is full code Blood work reviewed with patient and questions answered. Screening blood work before next appointment. General health concerns discussed with patient. Scribe services used to formulate this note under HIPAA compliance and under [place] law mandated for scribe services. Patient aware of service. Verbal consent and written consent taken from the patient. Patient understands and verbalizes understanding of the scribes services and all questions answered regarding scribes services. Patient agrees to use of scribes services. 07/23/2024 Intracardiac thrombosis, not elsewhere classified (ICD-10 - I51.3) Chadwick is 72 years old gentleman with insulin-dependent DM type II, coronary artery disease, status post CABG, CHF, status post ICD placement, hypertension, hyperlipidemia, polycythemia vera, chronic kidney disease is here today for follow-up. Plan is as follows Insulin-dependent DM type II. His A1c has improved and it was 6.3 which is in a very good range. He is on the right medications. He follows up with human resources services specialist Dr. Coyle. He is seen chief architect. Foot care discussed with the patient. Repeat hemoglobin A1c before next appointment. He is on statins. Coronary artery disease/intracardi ac thrombus/CHF/statu s post ICD placement. He is stable cardiac gutierres. He is on warfarin and INR is monitored by cardiology. His ICD is interrogated on a regular basis. He does not appear to be in volume overload and he is currently on Entresto 24/26 mg and also on Jardiance. He follows up with Dr. Fofana. Hypertension/hyper lipidemia. Blood pressure well controlled on current regimen and last lipid panel was within normal limits. Chronic kidney disease. He is stable at this point and he follows up with Dr. Leonides nicholas. He follows up with Dr. Butcher and he has lobotomies every 6 months. Screening blood work before next appointment 07/23/2024 Essential (primary) hypertension (ICD-10 - I10) Chadwick is 72 years old gentleman with insulin-dependent DM type II, coronary artery disease, status post CABG, CHF, status post ICD placement, hypertension, hyperlipidemia, polycythemia vera, chronic kidney disease is here today for follow-up. Plan is as follows Insulin-dependent DM type II. His A1c has improved and it was 6.3 which is in a very good range. He is on the right medications. He follows up with human resources services specialist Dr. Coyle. He is seen chief architect. Foot care discussed with the patient. Repeat hemoglobin A1c before next appointment. He is on statins. Coronary artery disease/intracardi ac thrombus/CHF/statu s post ICD placement. He is stable cardiac gutierres. He is on warfarin and INR is monitored by cardiology. His ICD is interrogated on a regular basis. He does not appear to be in volume overload and he is currently on Entresto 24/26 mg and also on Jardiance. He follows up with Dr. Fofana. Hypertension/hyper lipidemia. Blood pressure well controlled on current regimen and last lipid panel was within normal limits. Chronic kidney disease. He is stable at this point and he follows up with Dr. Leonides nicholas. He follows up with Dr. Butcher and he has lobotomies every 6 months. Screening blood work before next appointment 02/04/2024 Essential (primary) hypertension (ICD-10 - I10) Mr. Murillo is a 73 year old gentleman with insulin-dependent diabetes mellitus type II, CAD/CABG x3 and sees Dr. Ervin, CHF s/p ICD placement, clot in the left ventricle on Warfarin, CKD which he follows up with Dr. Coyle and bilateral varicose veins s/p ablation here for Medicare annual wellness visit. Plan is as follows: Type II diabetes mellitus with neuropathy. Last A1c improved from 7.5 to 7.1. He is on right medications. He has seen his chief architect in the past 1 year. Foot care discussed. Referred to Podiatry. Check A1c in 6 months. Hypertension. Blood pressure well controlled on current regimen. Electrocardiogram is paced. Hyperlipidemia. Continue current regimen. CAD. He is on right medications and he sees Dr. Ervin. He is stable. CHF which is compensated and his EF is 20-25% and status post ICD placement and he is not in volume overload and is asymptomatic. He follows up with girl friday. He is on right medications. Monitor weight and avoid salt intake. If there is weight gain he will inform us. Polycythemia vera. He sees Dr. Butcher. Chronic kidney disease stage 3b. He does not appear to be in volume overload. Advised appropriate hydration. Avoid NSAIDs. He sees Dr. Coyle. Tinea pedis. Foot care discussed. Referred to Podiatry. Class 1 obesity. Advised dietary restrictions and regimental exercise. Goal is to lose 5-6 lbs a month. Eye screening. He sees his chief architect regularly. Dental screening. He sees dentist regularly. Colon cancer screening. He had his colonoscopy done last year Immunizations. He is up-to-date on his COVID, TDAP and influenza vaccinations. HCP is. Neftali his son and he is full code Blood work reviewed with patient and questions answered. Screening blood work before next appointment. General health concerns discussed with patient. Scribe services used to formulate this note under HIPAA compliance and under [place] law mandated for scribe services. Patient aware of service. Verbal consent and written consent taken from the patient. Patient understands and verbalizes understanding of the scribes services and all questions answered regarding scribes services. Patient agrees to use of scribes services. 02/04/2024 Mixed hyperlipidemia (ICD-10 - E78.2) Mr. Murillo is a 73 year old gentleman with insulin-dependent diabetes mellitus type II, CAD/CABG x3 and sees Dr. Ervin, CHF s/p ICD placement, clot in the left ventricle on Warfarin, CKD which he follows up with Dr. Coyle and bilateral varicose veins s/p ablation here for Medicare annual wellness visit. Plan is as follows: Type II diabetes mellitus with neuropathy. Last A1c improved from 7.5 to 7.1. He is on right medications. He has seen his chief architect in the past 1 year. Foot care discussed. Referred to Podiatry. Check A1c in 6 months. Hypertension. Blood pressure well controlled on current regimen. Electrocardiogram is paced. Hyperlipidemia. Continue current regimen. CAD. He is on right medications and he sees Dr. Ervin. He is stable. CHF which is compensated and his EF is 20-25% and status post ICD placement and he is not in volume overload and is asymptomatic. He follows up with girl friday. He is on right medications. Monitor weight and avoid salt intake. If there is weight gain he will inform us. Polycythemia vera. He sees Dr. Butcher. Chronic kidney disease stage 3b. He does not appear to be in volume overload. Advised appropriate hydration. Avoid NSAIDs. He sees Dr. Coyle. Tinea pedis. Foot care discussed. Referred to Podiatry. Class 1 obesity. Advised dietary restrictions and regimental exercise. Goal is to lose 5-6 lbs a month. Eye screening. He sees his chief architect regularly. Dental screening. He sees dentist regularly. Colon cancer screening. He had his colonoscopy done last year Immunizations. He is up-to-date on his COVID, TDAP and influenza vaccinations. HCP is. Neftali his son and he is full code Blood work reviewed with patient and questions answered. Screening blood work before next appointment. General health concerns discussed with patient. Scribe services used to formulate this note under HIPAA compliance and under [place] law mandated for scribe services. Patient aware of service. Verbal consent and written consent taken from the patient. Patient understands and verbalizes understanding of the scribes services and all questions answered regarding scribes services. Patient agrees to use of scribes services. 07/23/2024 Mixed hyperlipidemia (ICD-10 - E78.2) Chadwick is 72 years old gentleman with insulin-dependent DM type II, coronary artery disease, status post CABG, CHF, status post ICD placement, hypertension, hyperlipidemia, polycythemia vera, chronic kidney disease is here today for follow-up. Plan is as follows Insulin-dependent DM type II. His A1c has improved and it was 6.3 which is in a very good range. He is on the right medications. He follows up with human resources services specialist Dr. Coyle. He is seen chief architect. Foot care discussed with the patient. Repeat hemoglobin A1c before next appointment. He is on statins. Coronary artery disease/intracardi ac thrombus/CHF/statu s post ICD placement. He is stable cardiac gutierres. He is on warfarin and INR is monitored by cardiology. His ICD is interrogated on a regular basis. He does not appear to be in volume overload and he is currently on Entresto 24/26 mg and also on Jardiance. He follows up with Dr. Fofana. Hypertension/hyper lipidemia. Blood pressure well controlled on current regimen and last lipid panel was within normal limits. Chronic kidney disease. He is stable at this point and he follows up with Dr. Coyle Polycythemia verniko. He follows up with Dr. Butcher and he has lobotomies every 6 months. Screening blood work before next appointment 07/23/2024 Encounter for screening for malignant neoplasm of prostate (ICD-10 - Z12.5) Chadwick is 72 years old gentleman with insulin-dependent DM type II, coronary artery disease, status post CABG, CHF, status post ICD placement, hypertension, hyperlipidemia, polycythemia vera, chronic kidney disease is here today for follow-up. Plan is as follows Insulin-dependent DM type II. His A1c has improved and it was 6.3 which is in a very good range. He is on the right medications. He follows up with human resources services specialist Dr. Coyle. He is seen chief architect. Foot care discussed with the patient. Repeat hemoglobin A1c before next appointment. He is on statins. Coronary artery disease/intracardi ac thrombus/CHF/statu s post ICD placement. He is stable cardiac gutierres. He is on warfarin and INR is monitored by cardiology. His ICD is interrogated on a regular basis. He does not appear to be in volume overload and he is currently on Entresto 24/26 mg and also on Jardiance. He follows up with Dr. Fofana. Hypertension/hyper lipidemia. Blood pressure well controlled on current regimen and last lipid panel was within normal limits. Chronic kidney disease. He is stable at this point and he follows up with Dr. Leonides nicholas. He follows up with Dr. Butcher and he has lobotomies every 6 months. Screening blood work before next appointment Plan Of Treatment Pending Test Test Name Order Date HEMOGLOBIN A1C WITH EST GLUCOSE 10/04/19 23 PSA, SCREEN 12/21/2022 Future Test Test Name Order Date Hemoglobin [id number] 07/23/2024 [id number] 07/23/2024 Albumin/Creatinine Ratio,[id number] Lipid Panel-[id number] 07/23/2024 Comp. Metabolic Panel [id number] PSA (Serial Monitor)-[id number] 07/23/2024 Next Appt Details Provider Name:MORAESQUINTEN HUGHES , 02/09/2025 03:00:00 PM, [address] [place] [address], [id number], Insurance Providers Payer Name Payer Address Payer Phone Subscriber Number Group Number Insured Name Patient Relationship to Insured Coverage Start Date Coverage End Date Medicare [address] [place] [address] [id number] Chadwick Siddiqi i Self - patient is the insured 6 [employer] ([employer]) [address] [place] [address] [id number] Chadwick Siddiqi i Self - patient is the insured Medical (General) History Medical History History ICD Code insulin-dependent diabetes mellitus type II CAD/CABG x3, Dr. 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 Coyle CHF s/p ICD placement, last EF around 20 -25 % bilateral varicose veins Personal history of COVID-19 Primary polycythemia vera, Dr. Butcher Surgical History Surgery Date(Month/Year) CABG x3, [facility] 2010 aortic valve replacement, [facility] 2017 appendectomy bilateral cataract surgeries, Dr. Black 0 10/2022
--- OUTSIDE RECORDS SUMMARY | 2024-09-16 14:43 | XMS_ITS | Encounter Summary ---
Author Organization [facility] Address [address] [place] [address] Care Team Providers Care Global Expansion Sales Director Name Role Phone Noreen Sumner MD Primary Care Provider [phone] Encounter Details Date Type Department Care Team (Late st Contact Info) Description 09/16/2024 Telephone [facility] Cardiology [address] [place] [phone] Sergei Fofana MD [address] [place] [address] [address] [place] [address] Social History Tobacco Use Types Packs/Day Years [...] AM EST documented as of this encounter Progress Notes * Keron Lord MA - 09/16/2024 11:15 AM EDT Pt at lab and needs new standing order for INR and CBC as he needs both. documented in this encounter Plan of Treatment Upcoming Encounters Date Type Department Care Team (Late st Contact Info) Description 01/27/2025 8:50 AM EDT Office Visit [facility] Cardiology [address] [place] [address] Sergei Fofana MD [address] [place] [address] [address]IVE [address] [place] [address] 06/17/2025 9:00 AM EST Office [facility] Hematology Oncology [address] [place] [address] Max Butcher MD [address] [place] [address] 08/26/2025 9:00 AM EST Ancillary Procedure [facility] - [address] [place] [address] Scheduled Orders Name Type Priority Associated Diagnoses Orde r Schedule Prothrombin time with INR Lab Routine Atrial fibrillation, unspecified type (CMS/HCC) Once a week for 52 Occurrences starting 09/16/2024 until 09/16/2025 Complete blood count Lab Routine Atrial fibrillation, unspecified type (CMS/HCC) 1 Occurrences starting 09/16/2024 until 09/16/2025 documented as of this encounter Visit Diagnoses Diagnosis Atrial fibrillation, unspecified type (CMS/HCC)- Primary Encounter for adjustment or management of cardiac device documented in this encounter Care Teams Global Expansion Sales Director Relationship Specialty Start Date End Date Noreen Sumner MD [address] [place] [address] PCP - General Internal Medicine 03/17/21 documented as of this encounter
--- OUTSIDE RECORDS SUMMARY | 2024-09-16 14:43 | XMS_ITS ---
Author Organization [facility] Address [address] [place] [address] Care Team Providers Care Balance And Hairspring Assembler Name Role Phone DIMITRY HUGHES Primary Care Provider [phone] REASON FOR VISIT New RX Request Medications Medication SIG (Take, Route, Frequency, Duration) Notes Start Date End Date Status Ozempic (0.25 or 0.5 MG/DOSE) 2 MG/1.5ML 0.25 mg Subcutaneous once a week for 30 days Active Encounters Encounter Location Date Provider Diagnosis [address] [address] 08/06/2024 DIMITRY HUGHES Plan Of Treatment Medication Medication Name Sig Start Date Stop Date Notes Ozempic (0.25 or 0.5 MG/DOSE) 2 MG/1.5ML 0.25 mg Subcutaneous once a week for 30 days Next Appt Details Provider Name:DIMITRY HUGHES , 02/09/2025 03:00:00 PM, [address] [place] [address], [place], [address], Progress Notes * Chadwick CARDOSODOB:1950 (73 yo M)Acc No.[id number]:08/06/2024 Patient:?Chadwick CARDOSO :1950???Age:73 Y???Sex:Male Phone: Address:[address] [place] [address], [place] [address] * Refills? Refill Ozempic (0.25 or 0.5 MG/DOSE) Solution Pen-injector, 2 MG/1.5ML, Subcutaneous, 6 ml, 0.25 mg, once a week, 30 days, Refills=3 * true * Date:? Generated for Piter ly/Curtis/Minooitting on:?09/16/2024 02:42 PM EDT
--- OUTSIDE RECORDS SUMMARY | 2024-09-16 14:43 | XMS_ITS | Encounter Summary ---
Author Organization [facility] Address [address] [place] [address] Care Team Providers Care Epic Willow Analyst Name Role Phone Noreen Sumner MD Primary Care Provider [phone] Reason for Visit * Imaging (Routine) - Closed Specialty Diagnoses / Procedures Referred By Elias loredo Referred To Contact Cardiology Diagnoses Ischemic cardiomyopathy Procedures Transthoracic echocardiogram (TTE) complete with PRN contrast, bubble, strain, and 3D order panel HI TTE W 2D IMAGE COMPLETE W DOPPLER ECHO & COLOR FLOW DOPPLER ECHO HI BRIDGET 2D COMPLETE W/CONTRAST OR W & WO CONTRAST WITH DOPPLER Sergei Fofana MD Phone: tel: fax: [facility] Referral ID Status Reason Start Date Expiration Date Visits Re quested Visits Authorized [id number] Closed 04/26/2024 04/26/2025 1 1 Encounter Details Date Type Department Care Team (Latest Contact Info) Description 09/04/2024 7:00 AM EST Ancillary Procedure [facility] - [address] [place] [address] Ischemic cardiomyopathy Social History Tobacco Use Types Packs/Day Years [...] AM EST documented as of this encounter Last Filed Vital Signs Vital Sign Reading Time Taken Comments Blood Pressure 116/80 09/04/2024 7:50 AM EST Pulse - - Temperature - - Respiratory Rate - - Oxygen Saturation - - Inhaled Oxygen Concentration - - Weight 85.3 kg (188 lb) 09/04/2024 7:50 AM EST Height 172.7 cm (5' 8 ) 09/04/2024 7:50 AM EST Body Mass Index 28.59 09/04/2024 7:50 AM EST documented in this encounter Plan of Treatment Upcoming Encounters Date Type Department Care Team (Late st Contact Info) Description 01/27/2025 8:50 AM EDT Office Visit [facility] [address] [place] [address] Sergei Fofana MD [address] [place] [address] [address] [place] [address] 06/17/2025 9:00 AM EST Office Visit [facility] Hematology Oncology [address] [place] [phone] Max Butcher MD [address] [place] [address] 08/26/2025 9:00 AM EST Ancillary Procedure [facility] - [address] [place] [address] documented as of this encounter Procedures Procedure Name Priority Date/Time Associated Diagnosis Comments TRANSTHORACIC ECHOCARDIOGRAM (TTE) COMPLETE W/ CONTRAST Routine 09/04/2024 7:51 AM EST Ischemic cardiomyopathy documented in this encounter Results * (ABNORMAL) TRANSTHORACIC ECHOCARDIOGRAM (TTE) COMPLETE W/ CONTRAST (09/04/2024 7:51 AM EST) Left Atrium Minor Solomon 6.3 cm CV PACS Left Atrium Major Solomon 5.9 cm CV PACS LA Area Sys (A2C) 28 cm2 CV PACS LA Area Sys (A4C) 27 cm2 CV PACS LA Volume (BP) 101 mL CV PACS RA Area 17.7 cm2 CV PACS RA 2D Volume 49 mL CV PACS AV Mean Gradient 4 mmHg CV PACS Ao VTI 27.1 cm CV PACS AV Peak Elvis 1.3 m/s CV PACS AV Peak Gradient 7 mmHg CV PACS AV Area Continuity Equation 2.0 cm2 CV PACS AV Area Peak Velocity 2.1 cm2 CV PACS Ascending Aorta 3.6 cm CV PACS IVC Proximal 1.3 cm CV PACS IVSD 1.1(A) 0.6 - 1.0 cm CV PACS LVIDD 7.2(A) 4.2 - 5.8 cm CV PACS LVIDS 6.7(A) 2.5 - 4.0 cm CV PACS LVOT Diameter 2.4 cm CV PACS LVOT Mean Elvis 0.5 m/s CV PACS LVOT Mean Grad 1 mmHg CV PACS LVOT Peak VTI 12.0 cm CV PACS LVOT Peak Elvis 0.6 m/s CV PACS LVOT Peak Gradient 2 mmHg CV PACS LVPWD 1.1(A) 0.6 - 1.0 cm CV PACS MV E' Tissue Velocity Lateral 4 cm/s CV PACS MV E' Tissue Velocity Septal 4 cm/s CV PACS LVOT Area 4.5 cm2 CV PACS LVOT Stroke Volume 54 mL CV PACS MR PISA Nyquist Elvis 37 cm/s CV PACS PISA MR Radius 0.50 cm CV PACS MV Mean Gradient 2 mmHg CV PACS MR VTI 198.0 cm CV PACS MV VTI 24.0 cm CV PACS MR PISA Max Velocity 5.2 m/s CV PACS MR Peak Gradient 107 mmHg CV PACS Mitral Valve Max Velocity 0.9 m/s CV PACS MV Peak Gradient 3 mmHg CV PACS MV Deceleration Smyth 4.8 m/s2 CV PACS E Wave Deceleration Time 161 119 - 242 ms CV PACS MV PHT 47 ms CV PACS MV Peak A Elvis 0.74 m/s CV PACS MV Peak E Elvis 0.77 m/s CV PACS PISA MR EROA 0.11 cm2 CV PACS MV Area PHT 4.7 cm2 CV PACS MV Area Continuity Equation 2.3 cm2 CV PACS PISA Regurgitant Volume 22 mL CV PACS PV Acceleration Time 114 ms CV PACS RV Diastolic Basal Dimension 3.7 2.5 - 4.1 cm CV PACS RV S' 9 cm/s CV PACS TAPSE 15 mm CV PACS E/E' Ratio Septal 19 CV PACS E/E' Ratio Averaged 19 CV PACS LVOT Stroke Index 27 mL/m2 CV PACS Relative Wall Thickness ratio 0.31 CV PACS LVOT:AV VTI Index 0.44 CV PACS FS 7 % CV PACS LV Mass 2D 381 g CV PACS Ascending Aorta Index 1.81 cm/m2 CV PACS MV VTI:LVOT VTI ratio 2.0 CV PACS LVOT flow 226 mL/s CV PACS RA 2D Volume Index 25 mL/m2 CV PACS STIVEN Index (VTI) 1.01 cm2/m2 CV PACS STIVEN Index (Pk Elvis) 1.06 cm2/m2 CV PACS LVIDD Index 3.62 cm/m2 CV PACS LVIDS Index 3.37 cm/m2 CV PACS AV Velocity Ratio 0.46 CV PACS E/A Ratio 1.0 CV PACS E/E' Ratio Lateral 19 CV PACS LA Volume Index (BP) 51 mL/m2 CV PACS LV Mass Index 2D 192 g/m2 CV PACS BSA 2.02 m2 CV PACS Est. RA Pressure 3 mmHg CV PACS Anatomical Region Laterality Modality Ultrasound Narrative 09/07/2024 3:11 PM EST ?Left ventricular systolic function is severely decreased with an ejection fraction less than 20%. ??Patient has evidence of a apical septal infarct inferior and inferolateral infarct. ??Left ventricle is dilated in diastole and in systole ?Left ventricle mild concentric hypertrophy. ?There is Grade II (moderate) diastolic dysfunction. ?Right ventricle cavity is normal. Right ventricular systolic function is mildly reduced. ?Moderate eccentric mitral insufficiency ?Dilated right ventricle reduced right ventricular systolic function ?Left atrial enlargement ?Diastolic dysfunction with elevated left atrial filling pressure ?Compared to previous study dated 10/05/2022 ejection fraction slightly reduced. ??The mitral insufficiency is worse diameter of the ascending aorta is unchanged ?Dilatation of the ascending aorta unchanged from previous study Left Ventricle Dilated left ventricle in systole and diastole. There is mild concentric hypertrophy. Systolic function is severely decreased with an ejection fraction less than 20%. Global hypokinesis with akinesis of the apex. There is Grade II (moderate) diastolic dysfunction. Right Ventricle Right ventricle cavity appears normal. Systolic function is reduced. Device wire in right ventricle. Left Atrium Left atrium cavity is severely dilated. Right Atrium Right atrium cavity is normal. Device wire in right atrium. IVC/SVC RA pressures is estimated to be 3 mmHg (IVC diameter <21 mm and decreases >50% during inspiration). Mitral Valve The leaflets are mildly thickened. There is annular calcification. There is mild regurgitation. There is no evidence of mitral valve stenosis. Tricuspid Valve Tricuspid valve structure is normal. Tricuspid regurgitation is inadequate for estimation of right ventricular systolic pressure. Aortic Valve #29 Parks Model 2700 bioprosthetic aortic valve is well seated and functioing normally. There is no regurgitation. The mean gradient through the valve is 4 mmHg. Pulmonic Valve Pulmonic valve structure is normal. There is trace pulmonic valve regurgitation. Ascending Aorta Normal ascending aorta. Transverse aorta not well visualized. Pericardium Pericardium appears normal. There is no pericardial effusion. Study Details Overall the study quality was technically difficult. Definity contrast was given to enhance imaging. us Sergei Fofana MD CV ECHO PROCEDURES Final Resul t documented in this encounter Visit Diagnoses Diagnosis Ischemic cardiomyopathy Other specified forms of chronic ischemic heart disease Encounter for adjustment or management of cardiac device documented in this encounter Administered Medications Inactive Administered Medications - up to 3 most recent administrations Medication Order MAR Action Action Date Dose Rate Site perflutren lipid microsphere (DEFINITY) 1.3 mL in sodium chloride 0.9% 8.7 mL injection 10 mL, intravenous, Administer over 10 Minutes, Once, On Sammie 09/04/24 at 0815, For 1 doseIndications:Ischemic cardiomyopathy Given 09/04/2024 7:52 AM EST 10 mL documented in this encounter Orders Medications Ordered That Davidson ht Not Have Been Administered Count Last Ordered Date First Ordered Date perflutren lipid microsphere (DEFINITY) 1.3 mL in sodium chloride 0.9% 8.7 mL injection 1 09/04/2024 documented in this encounter Care Teams Epic Willow Analyst Relationship Specialty Start Date End Date Noreen Sumner MD [address] [place] [address] PCP - General Internal Medicine 03/17/21 documented as of this encounter
--- OUTSIDE RECORDS SUMMARY | 2024-09-16 14:43 | XMS_ITS | Encounter Summary ---
Author Organization [facility] Address [address] [place] [address] Phone Care Team Providers Care Broacher Name Role Phone Noreen Sumner MD Primary Care Provider [phone] Reason for Visit * Reason Comments Med Refill Encounter Details Date Type Department Care Team (Late st Contact Info) Description 04/09/2021 Refill [facility] [address] [place] [phone] Linwood Coyle MD Social History Tobacco Use Types Packs/Day Years Used Date Smoking Tobacco: Never Smokeless Tobacco: Never Alcohol Use Standard Drinks/Week Comments No 0 (1 standard drink = 0.6 oz pur e alcohol) Sex and Gender Information Value Date Recorded Sex Assigned at Not on file Legal Sex Male 4:40 PM EST Gender Identity Not on file Sexual Orientation Not on file documented as of this encounter Plan of Treatment Not on file documented as of this encounter Visit Diagnoses Not on filedocumented in this encounter Care Teams Broacher Relationship Specialty Start Date End Date Noreen Sumner MD [address] [place] [address] PCP - General Internal Medicine 05/17/21 documented as of this encounter
--- OUTSIDE RECORDS SUMMARY | 2024-09-16 14:43 | XMS_ITS | Encounter Summary ---
Author Organization [facility] Address [address] [place] [address] Care Team Providers Care Yacht Master Name Role Phone Noreen Sumner MD Primary Care Provider [phone] Encounter Details Date Type Department Care Team (Late st Contact Info) Description 08/19/2024 Anticoagulation - Warfarin Visit [facility] - [facility] [address] [facility] [address] [place] [phone] Steve Pickard MD [address] [facility] [address] [place] [address] Atrial fibrillation, unspecified type (CMS/HCC) (Primary Dx) Social History Tobacco Use Types Packs/Day Years [...] as of this encounter Progress Notes * Nova Kahn MA - 08/19/2024 11:29 AM EST I left message with instructions and request call back. * Nova Kahn MA - 08/19/2024 11:29 AM EST Patient received message. documented in this encounter Plan of Treatment Upcoming Encounters Date Type Department Care Team (Late st Contact Info) Description 01/27/2025 8:50 AM EDT Office Visit [facility] Cardiology [address] [place] [address] Sergei Fofana MD [address] [place] [address] [address] [place] [address] 06/17/2025 9:00 AM EST Office Visit [facility] Hematology Oncology [address] [place] [phone] Max Butcher MD [address] [place] [address] 08/26/2025 9:00 AM EST Ancillary Procedure [facility] - [address] [facility] [address] [place] [address] documented as of this encounter Visit Diagnoses Diagnosis Atrial fibrillation, unspecified type (CMS/HCC)- Primary Encounter for adjustment or management of cardiac device documented in this encounter Care Teams Yacht Master Relationship Specialty Start Date End Date Noreen Sumner MD [address] [place] [address] PCP - General Internal Medicine 03/17/21 documented as of this encounter
--- OUTSIDE RECORDS SUMMARY | 2024-09-16 14:43 | XMS_ITS | Encounter Summary ---
Author Organization [facility] Address [address] [place] [address] Care Team Providers Care Rehabilitation Center Manager Name Role Phone Noreen Sumner MD Primary Care Provider [phone] Encounter Details Date Type Department Care Team (Latest Contact Info) Description 09/16/2024 Anticoagulation - Warfarin Visit [facility] [address] [place] [address] Sergei Fofana MD [address] [place] [address] [address] [place], [place] [phone] Atrial fibrillation, unspecified type (CMS/HCC) (Primary Dx) [...] 01/27/2025 8:50 AM EDT Office Visit [facility] [address] [place] [address] Sergei Fofana MD [address] [place] [address] DRIVE [address] [place] [address] 06/17/2025 9:00 AM EST Office Visit [facility] Hematology Oncology [address] [place] [address] Max Butcher MD [address] [place] [address] 08/26/2025 9:00 AM EST Ancillary Procedure [facility] - [address] [place] [address] documented as of this encounter Visit Diagnoses Diagnosis Atrial fibrillation, unspecified type (CMS/HCC)- Primary Encounter for adjustment or management of cardiac device documented in this encounter Care Teams Rehabilitation Center Manager Relationship Specialty Start Date End Date Noreen Sumner MD [address] [place] [address] PCP - General Internal Medicine 03/17/21 documented as of this encounter
--- OUTSIDE RECORDS SUMMARY | 2024-09-16 14:43 | XMS_ITS | Clinical Summary ---
Author Organization [facility] Address [address] [place] [address] Phone Care Team Providers Care Sheltered Workshop Executive Director Name Role Phone Noreen Sumner MD Primary Care Provider [phone] Allergies No known active allergies Medications atorvastatin (LIPITOR) 80 mg tablet Take 1 tablet (80 mg total) by mouth at bedtime. 03/17/20 21 Active carvediloL (COREG) 6.25 mg tablet Take 1 tablet (6.25 mg total) by mouth 2 (two) times a day with meals. 12/24/19 22 Active cholecalciferol (VITAMIN D-3) 125 mcg (5,000 unit) capsule Take 1 capsule (5,000 Units total) by mouth 1 (one) time each day. Active empagliflozin (Jardiance) 25 mg tablet Take 1 tablet (25 mg total) by mouth 1 (one) time each day in the morning. Active furosemide (LASIX) 80 mg tablet Take 0.5 tablets (40 mg total) by mouth 1 (one) time each day. 03/15/20 21 Active insulin detemir (LEVEMIR) 100 unit/mL injection Inject 40 Units into the skin at bedtime. Active omega-3 acid ethyl esters (LOVAZA) 1 gram capsule 1 capsule (1 g total) 1 (one) time each day. Active warfarin (COUMADIN) 5 mg tablet as directed 01/25/20 21 Active warfarin (COUMADIN) 1 mg tablet Take 1 tablet (1 mg total) by mouth 1 (one) time each day with dinner. 30 each 11 06/19/20 24 Active aspirin 81 mg EC tablet Take 1 tablet (81 mg total) by mouth 1 (one) time each day. Active Bydureon BCise 2 mg/0.85 mL auto-injector injection Inject 0.85 mL (2 mg total) under the skin 1 (one) time per week. 04/28/20 24 Active glipiZIDE (GLUCOTROL XL) 5 mg 24 hr tablet Take 1 tablet (5 mg total) by mouth 1 (one) time each day. 05/26/20 24 Active sacubitriL-valsa rtan (Entresto) 24-26 mg per tablet Take 1 tablet by mouth 2 (two) times a day. 180 tablet 3 08/06/19 25 Active amiodarone (PACERONE) 100 mg tabletIndication s:Paroxysmal atrial fibrillation (CMS/HCC),Essent ial (primary) hypertension Take 1 tablet (100 mg total) by mouth 1 (one) time each day. 90 tablet 3 09/03/19 25 Active amiodarone (PACERONE) 100 mg tablet Take 1 tablet (100 mg total) by mouth 1 (one) time each day. 025 Discontinued Hospital, Clinic, or Other Facility Administered Medication Ordered Dose Route Frequency Start Date End Date Status perflutren lipid microsphere (DEFINITY) 1.3 mL in sodium chloride 0.9% 8.7 mL injectionIndications:Ischem ic cardiomyopathy 10 mL IV Once 09/04/2024 09/04/2024 Ended Active Problems Problem Noted Date Diagnosed Date Coronary artery disease invo lving skokomish coronary artery of skok[place]ish heart without angina pectoris 07/29/2024 Assessment & Plan (07/29/2024 5:18 PM EST): Patient status post coronary bypass repeat catheterization prior to valve replacement showed stable anatomy no progression risk factor modification in place asymptomatic at this time patient's had no lipid profile done recently lab slips been given to check his lipids Orders: Lipid panel with reflex to direct LDL; Future Thyroid stimulating hormone with reflex free T4; Future Hepatic function panel; Future History of aortic valve replacement 07/29/2024 Assessment & Plan (07/29/2024 5:18 PM EST): Patient is status post aortic valve replacement. Last echocardiogram showed stable valve function. Again discussed with the patient the need to continue endocarditis prophylaxis. HFrEF (heart failure with reduced ejection fract ion) 07/29/2024 Assessment & Plan (07/29/2024 5:18 PM EST): Patient with a diagnosis of HFrEF. Due for an echocardiogram in August. Guideline directed therapy in place. Will reconsider guideline directed therapy following the repeat echocardiogram ICD (implantable cardioverter-defibrillator) in place 07/29/2024 Assessment & Plan (07/29/2024 5:18 PM EST): ICD in place single-lead no discharges no evidence of heart failure based on evaluation no arrhythmias documented Afib 05/22/2024 Assessment & Plan (07/29/2024 5:18 PM EST): Patient is in sinus rhythm at the present time remains on low-dose amiodarone therapy. Patient has been given a lab slip to check thyroid and hepatic profile to ensure that there are no side effects. Patient is on thyroid replacement hormone at this time. Patient remains chronically anticoagulated for paroxysmal atrial fibrillation. Anticoagulation is with warfarin secondary to valve replacement Orders: ECG 12 lead Thyroid stimulating hormone with reflex free T4; Future Hepatic function panel; Future Encounters Date Type Department Care Team Description 09/16/2024 Anticoagulation - Warfarin Visit [facility] [facility] [address] [place] [address] Lauren Fofana MD Atrial fibrillation, unspecified type (CMS/HCC) (Primary Dx) 09/16/[address] [facility] [address] [facility] [address] [place] [address] Lauren Fofana MD 09/04/2024 7:00 AM EST Ancillary Procedure [facility] [address] [place] [address] Ischemic cardiomyopathy 08/26/2024 9:00 AM EST Ancillary Procedure [facility] - [address] [place] [phone] Encounter for adjustment or management of cardiac device 08/19/2024 Anticoagulation - Warfarin Visit [facility] - [address] [place] [phone] Steve Pickard MD Atrial fibrillation, unspecified type (CMS/HCC) (Primary Dx) 08/12/2024 1:20 PM EST Ancillary Procedure [facility] - [address] [place] [phone] 08/07/2024 Anticoagulation - Warfarin Visit [facility] [address] [place] [address] Lauren Fofana MD Atrial fibrillation, unspecified type (CMS/HCC) (Primary Dx) 08/06/2024 Telephone [facility] [address] [place] [address] Lauren Fofana MD Med Refill 07/31/2024 Anticoagulation - Warfarin Visit [facility] [address] [place] [address] Lauren Fofana MD Atrial fibrillation, unspecified type (CMS/HCC) (Primary Dx) 07/29/2024 2:00 PM EST Office Visit [facility] [facility] [address] [place] [address] Lauren Fofana MD Atrial fibrillation, unspecified type (CMS/HCC) (Primary Dx); Coronary artery disease involving skokomish coronary artery of skokomish heart without angina pectoris; History of aortic valve replacement; HFrEF (heart failure with reduced ejection fraction) (CMS/HCC); 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 07/24/2024 Anticoagulation - Warfarin Visit [facility] [address] [place] [address] Lauren Fofana MD Atrial fibrillation, unspecified type (CMS/HCC) (Primary Dx) 07/17/2024 Anticoagulation - Warfarin Visit [facility] [address] [place] [address] Lauren Fofana MD Atrial fibrillation, unspecified type (CMS/HCC) (Primary Dx) 07/15/2024 8:30 PM EST Ancillary Procedure [facility] - [address] [place] [phone] 07/10/2024 Anticoagulation - Warfarin Visit [facility] [address] [place] [phone] Lauren Fofana MD Atrial fibrillation, unspecified type (CMS/HCC) (Primary Dx) 07/03/2024 Anticoagulation - Warfarin Visit [facility] [address] [place] [address] Lauren Fofana MD Atrial fibrillation, unspecified type (CMS/HCC) (Primary Dx) 06/26/2024 Anticoagulation - Warfarin Visit [facility] [address] [place] [phone] Lauren Fofana MD Atrial fibrillation, unspecified type (CMS/HCC) (Primary Dx) 06/19/2024 Anticoagulation - Warfarin Visit [facility] - [address] [place] [phone] Steve Pickard MD Atrial fibrillation, unspecified type (CMS/HCC) (Primary Dx) from Last 3 Months Surgical History Surgery Date Site/Laterality Comments CORONARY ARTERY BYPASS GRAFT PROCEDURE: HISTORICAL CABG CARDIAC SURGERY PROCEDURE: HISTORICAL HEART SURGERY(ASD,VSD,VALVES) CARDIAC CATHETERIZATION PROCEDURE: HISTORICAL CARDIAC CATH Medical History Medical History Date Comments Chronic ischemic heart disease D X:Chronic 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, co ntrolled, with complications (CMS/HCC) DX:Diabetes mellitus type 2, controlled, with complications (HCC) Hyperlipidemia DX:Hyperlipidemi a Essential hypertension DX:Essent ial hypertension Family History Medical History Relation Name Comments Diabetes Father Heart attack Father Hypertension Father Other: heart valve problem Father Abdominal Aortic Anuerysm (AAA) Mother Relation Name Status Comments Father Mother Social History Tobacco Use Types Packs/Day Years Used Date Smoking Tobacco: Former Cigarettes Q uit: 07/09/2003 Smokeless Tobacco: Never Tobacco Cessation:Counseling Given: Not Answered Alcohol Use Standard Drinks/Week Comments No 0 (1 standard drink = 0.6 oz pur e alcohol) Sex and Gender Information Value Date Recorded Sex Assigned at Male 05/21/2024 4:54 AM EST Legal Sex Male 2:25 PM EST Gender Identity Male 05/21/2024 4:54 AM EST Sexual Orientation Choose not to disclose 2023 4:54 AM EST Obstetrics History Last Filed Vital Signs Vital Sign Reading Time Taken Comments Blood Pressure 116/80 09/04/2024 7:50 AM EST Pulse 70 07/29/2024 1:59 PM EST Temperature 36.2 ??C (97.2 ??F) 06/16/2024 8:55 AM ES T Respiratory Rate - - Oxygen Saturation 99% 07/29/2024 1:59 PM EST Inhaled Oxygen Concentration - - Weight 85.3 kg (188 lb) 09/04/2024 7:50 AM EST Height 172.7 cm (5' 8 ) 09/04/2024 7:50 AM EST Body Mass Index 28.59 09/04/2024 7:50 AM EST Plan of Treatment Upcoming Encounters Date Type Department Care Team (Late st Contact Info) Description 01/27/2025 8:50 AM EDT Office Visit [facility] Cardiology [address] [place] [address] Lauren Fofana MD [address] [place] [address] [address] [place] [address] 06/17/2025 9:00 AM EST Office [facility] Hematology Oncology [address] [place] [phone] Max Butcher MD [address] [place] [address] 08/26/2025 9:00 AM EST Ancillary Procedure [facility] Cardiology [facility] - [address] [address] Health Maintenance Due Date Last Done Comments Diabetes: Annual GFR (Glomerular Filtration Rate) 1950 Diabetes: Annual Foot Exam 1960 Diabetes: Annual Retina Eye Exam 1960 Pneumococcal Vaccine: 50+ Years (1 of 2 - PCV) 1969 Zoster Vaccines (1 of 2) 1969 RSV Immunization Patients 60+ Years Old (1 - Risk 60-74 years 1-dose series) 2010 Abdominal Aortic Aneurysm (AAA) Screen 06/17/2022 Colorectal Cancer Screening: Colonoscopy 06/17/2022 Depression Screening 06/17/2022 Falls Risk Assessment 06/17/2022 Hepatitis C Screening 06/17/2022 Social Influencers of Health Screening 06/17/2022 Hypertension/CHF/CAD Annual BMP Blood Test 06/18/2022 Diabetes: Annual Urine Albumin-Creatinine Ratio (uACR) 06/24/2022 Diabetes: Blood Sugar Control Test (HGBA1C) 06/24/2022 Medicare Annual Wellness Visit 12/22/2023 12/21/2022 COVID-19 Vaccine ( season) 2024 04/13/2023, 05/23/2022, 10/18/2021, Additional history exists Influenza Vaccine (#1) 2024 04/13/2023, 2021 Cholesterol Screening (Lipid Panel) 07/31/2029 07/31/2024 DTaP,Tdap,and Td Vaccines (2 - Td or Tdap) 12/21/2032 12/21/2022 HIB Vaccines Aged Out No longer eligi ble based on patient's age to complete this topic HPV Vaccines Aged Out No longer eligi ble based on patient's age to complete this topic Hepatitis A Vaccines Aged Out No long er eligible based on patient's age to complete this topic Hepatitis B Vaccines Aged Out No long er eligible based on patient's age to complete this topic IPV Vaccines Aged Out No longer eligi ble based on patient's age to complete this topic MMR Vaccines Aged Out No longer eligi ble based on patient's age to complete this topic Meningococcal ACWY Vaccine Aged Out N o longer eligible based on patient's age to complete this topic Meningococcal B Vacine Aged Out No lo nger eligible based on patient's age to complete this topic RSV Immunization Patients Under 20 months Aged Out No longer eligible based on patient's age to complete this topic Varicella Vaccines Aged Out No longer eligible based on patient's age to complete this topic Medical Devices Implanted Type Area Wool Handler Device Identifier Shelf Expiration Date Model / Serial / Lot Abbt-Stju 3357-40q Unify Assura(Tm) [id number] Implanted:01/06 by Steve Pickard MD (Quantity not on file) Cardiac INFORMATION SYSTEMS SECURITY ANALYST-D ICD Left: Chest [facility] 3357-40Q UNIFY ASSURA(TM ) / [id number] / Abbt-Stju Unify Assura 3357-40q [id number] Implanted:01/06 (Quantity not on file) Cardiac INFORMATION SYSTEMS SECURITY ANALYST-D ICD [facility] UN[employer]URA 3357-40Q / [id number] / Procedures Procedure Name Priority Date/Time Associated Diagnosis Comments PROTHROMBIN TIME WITH INR Routine 09/16/2024 11:22 AM EDT CBC WITH AUTO DIFFERENTIAL Routine 09/16/2024 11:22 AM EDT TRANSTHORACIC ECHOCARDIOGRAM (TTE) COMPLETE W/ CONTRAST Routine 09/04/2024 7:51 AM EST Ischemic cardiomyopathy CARDIAC DEVICE CHECK- IN CLINIC- [facility] Routine 08/26/2024 9:03 AM EST Encounter for adjustment or management of cardiac device PROTHROMBIN TIME WITH INR Routine 08/19/2024 9:14 AM EST CBC WITH AUTO DIFFERENTIAL Routine 08/19/2024 9:14 AM EST CARDIAC DEVICE CHECK- REMOTE- MURJ Routine 08/12/2024 1:16 PM EST PROTHROMBIN TIME WITH INR Routine 08/07/2024 10:59 AM EST CBC WITH AUTO DIFFERENTIAL Routine 08/07/2024 10:58 AM EST HEPATIC FUNCTION PANEL Routine 8:11 AM EST ..THYROXINE FREE Routine 07/31/2024 8:11 AM EST ..TSH REFLEX TO FREE T4 Routine 07/31/2024 8:11 AM EST LIPID PANEL WITH LDL AND HDL RATIO Routine 07/31/2024 8:11 AM EST PROTHROMBIN TIME WITH INR Routine 07/31/2024 7:51 AM EST CBC WITH AUTO DIFFERENTIAL Routine 07/31/2024 7:51 AM EST ECG 12-LEAD Routine 07/29/2024 2:11 PM EST Atrial fibrillation, unspecified type (CMS/HCC) PROTHROMBIN TIME WITH INR Routine 07/24/2024 9:11 AM EST CBC WITH AUTO DIFFERENTIAL Routine 07/24/2024 9:11 AM EST PROTHROMBIN TIME WITH INR Routine 07/17/2024 12:15 PM EST CBC WITH AUTO DIFFERENTIAL Routine 07/17/2024 12:14 PM EST CARDIAC DEVICE CHECK- REMOTE- [facility]URJ Routine 07/15/2024 8:29 PM EST PROTHROMBIN TIME WITH INR Routine 07/10/2024 11:45 AM EST CBC WITH AUTO DIFFERENTIAL Routine 07/10/2024 11:45 AM EST CBC WITH AUTO DIFFERENTIAL Routine 07/03/2024 10:36 AM EST PROTHROMBIN TIME WITH INR Routine 07/03/2024 10:28 AM EST PROTHROMBIN TIME WITH INR Routine 06/26/2024 8:59 AM EST CBC WITH AUTO DIFFERENTIAL Routine 06/26/2024 8:59 AM EST CBC WITH AUTO DIFFERENTIAL Routine 06/19/2024 10:04 AM EST PROTHROMBIN TIME WITH INR Routine 06/19/2024 10:04 AM EST from Last 3 Months Results * (ABNORMAL) CBC auto differential (09/16/2024 11:22 AM EDT) Only the most recent of10 resultswithin the time period is included. Pathologist [facility] WBC 9.1 4.0 - 11.0 K/MM3 [facility] 1 RBC 5.09 4.70 - 6.10 M/MM3 [facility] 1 Hemoglobin 14.6 13.7 - 17.1 GM/DL [facility] 1 Hematocrit 47.2 40.5 - 50.0 % [facility] 1 MCV 92.7 80.0 - 94.0 FL [facility] 1 MCH 28.7 27.0 - 34.0 PG [facility] 1 MCHC 30.9(L) 33.0 - 37.0 g/dL [facility] 1 RDW 51.7(H) <47.0 FL [facility] 1 Platelets 143(L) 150 - 460 K/MM3 [facility] 1 Neutrophils 75.3 44 - 76 % [facility] 1 Lymphocytes 10.2(L) 15 - 43 % [facility] 1 Monocytes 11.4(H) 4.5 - 10.5 % [facility] 1 Eosinophils 1.9 0 - 6 % [facility] 1 Basophils 0.8 0 - 2 % [facility] 1 Neutrophils Absolute 6.9 1.3 - 7.0 K/MM3 [facility] 1 Lymphocytes Absolute 0.9 0.8 - 3.1 K/MM3 [facility] 1 Monocytes Absolute 1.0 0.4 - 1.3 K/MM3 [facility] 1 Eosinophils Absolute 0.2 0.0 - 0.4 K/MM3 [facility] 1 Basophils Absolute 0.1 0.0 - 0.1 K/MM3 [facility] 1 Immature Granulocytes Relative 0.4 % [facility] 1 Immature Grans (Abs) 0.0 K/MM3 [facility] 1 Nucleated RBC 0.0 #/100 WBC'S [facility] 1 Hematology Comments: Comment [facility] 1 Comment: AUTOMATED DIFFERENTIAL MPV ?11.2 ? FL ? 9.4-12.4 ?? N ABS. NRBC ?0.0 ?K/MM3 ? N 09/16/2024 11:2 2 AM EDT 09/16/2024 Narrative [facility] 1 - 09/16/2024 12:07 PM EDT Performed at: ??01 - [address] ??[id number] Fire Engineer: Taco Pat MD, Phone: ??[phone] Steve Pickard MD LAB BLOOD ORDERABLES Final Result Performing Organization Address [facility] de Phone Number [facility] * (ABNORMAL) Prothrombin time with INR (09/16/2024 11:22 AM EDT) Only the most recent of10 resultswithin the time period is included. Pathologist [facility] International Normalized Ratio (INR) 2.6(H) 0.9 - 1.1 [facility] 1 Prothrombin Time 24.6(H) 9.2 - 11.4 SEC [facility] 1 09/16/2024 11:2 2 AM EDT 09/16/2024 Narrative [facility] 1 - 09/16/2024 12:07 PM EDT Performed at: ??[address] - [address] ??[id number] Fire Engineer: Taco Pat MD, Phone: ??[phone] Steve Pickard MD LAB BLOOD ORDERABLES Final Result Performing Organization Address [facility] de Phone Number [facility] * (ABNORMAL) TRANSTHORACIC ECHOCARDIOGRAM (TTE) COMPLETE W/ CONTRAST (09/04/2024 7:51 AM EST) Left Atrium Minor Ballard 6.3 cm CV PACS Left Atrium Major Ballard 5.9 cm CV PACS LA Area Sys [...] Gradient 3 mmHg CV PACS MV Deceleration [place] 4.8 m/s2 CV PACS E Wave Deceleration [...] contrast was given to enhance imaging. us Lauren Fofana MD CV ECHO PROCEDURES Final Resul t * CARDIAC DEVICE CHECK- IN CLINIC- [facility] (08/26/2024 9:03 AM EST) Date Time Interrogation Session [id number] CV DEVICE CHECK Implantable Pulse Generator Wool Handler [employer] CV DEVICE CHECK Implantable Pulse Generator Type INFORMATION SYSTEMS SECURITY ANALYST-D CV DEVICE CHECK Implantable Pulse Generator Model Unify Assura 3357-40Q CV DEVICE CHECK Implantable Pulse Generator Serial Number [id number] CV DEVICE CHECK Implantable Pulse Generator Implant Date 20180117 CV DEVICE CHECK Battery Status Middle of Service CV DEVICE CHECK Tashi Statistic RA Percent Paced 18.00 CV DEVICE CHECK Tashi Statistic RV Percent Paced 96.00 CV DEVICE CHECK INFORMATION SYSTEMS SECURITY ANALYST Statistic INFORMATION SYSTEMS SECURITY ANALYST Percent Paced 96.00 CV DEVICE CHECK Lead [...] CV DEVICE CHECK Ventricular chambers paced during INFORMATION SYSTEMS SECURITY ANALYST pacing. LV -> RV CV DEVICE CHECK Tashi Setting Lower Rate Limit 70 CV DEVICE CHECK Tashi Setting AT Mode Switch Rate 180 CV DEVICE CHECK Tashi Setting Maximum Tracking Rate 120 CV DEVICE CHECK Tashi Setting Maximum Sensor Rate 120 CV DEVICE CHECK Tashi Setting PAV Delay 150 CV DEVICE CHECK Tashi Setting JOHN Delay 120 CV DEVICE CHECK INFORMATION SYSTEMS SECURITY ANALYST LV-RV Delay 20 CV D EVICE CHECK [...] IMPLANTABLE CAR DIAC DEVICE PROCEDURES Final Result * Cardiac device check - Remote- [facility] (08/12/2024 1:16 PM EST) Only the most recent of2 resultswithin the time period is included. Date Time Interrogation Session [id number] CV DEVICE CHECK Type Interrogation Session Remote Scheduled CV DEVICE CHECK Implantable Pulse Generator Wool Handler [employer] CV DEVICE CHECK Implantable Pulse Generator Type INFORMATION SYSTEMS SECURITY ANALYST-D CV DEVICE CHECK Implantable Pulse Generator Model 3357-40Q [employer] [facility] [facility](TM) CV DEVICE CHECK Implantable Pulse Generator Serial Number [id number] CV DEVICE CHECK Implantable Pulse Generator Implant Date 20180117 CV DEVICE CHECK Battery Remaining Percentage 24.00 CV DEVICE CHECK Battery Remaining Longevity 18.0 CV DEVICE CHECK Battery Voltage 2.800 CV D EVICE CHECK Battery RADIO TIME SALES SUPERVISOR Trigger 2.590 CV DEVICE CHECK Battery Status Middle of Service CV DEVICE CHECK Capacitor Charge Time 9.400 CV DEVICE CHECK Tashi Statistic RA Percent Paced 32.00 CV DEVICE CHECK Tashi Statistic RV Percent Paced 96.00 CV DEVICE CHECK INFORMATION SYSTEMS SECURITY ANALYST Statistic INFORMATION SYSTEMS SECURITY ANALYST Percent Paced 97.00 CV DEVICE CHECK Atrial Tachy Statistic AT/AF [place] Percent 1.00 CV DEVICE CHECK Lead Channel Sensing Intrinsic Amplitude 5.000 CV DEVICE CHECK Lead Channel Setting Sensing Sensitivity 0.30 CV DEVICE CHECK Lead Channel Impedance Value 290 CV DEVICE CHECK Lead Channel Pacing Threshold Amplitude 0.750 CV DEVICE CHECK Lead Channel Pacing Threshold Pulse Width 0.5 CV DEVICE CHECK Lead Channel RA Pacing Threshold Date 2024-07-26 CV DEVICE CHECK Lead Channel Setting Pacing Amplitude 2.000 CV DEVICE CHECK Lead Channel Setting Pacing Pulse Width 0.5 CV DEVICE CHECK Lead Channel Sensing Intrinsic Amplitude 12.000 CV DEVICE CHECK Lead Channel Setting Sensing Sensitivity 0.50 CV DEVICE CHECK Lead Channel Impedance Value 510 CV DEVICE CHECK Lead Channel Pacing Threshold Amplitude 1.125 CV DEVICE CHECK Lead Channel Pacing Threshold Pulse Width 0.5 CV DEVICE CHECK Lead Channel RV Pacing Threshold Date 2024-07-26 CV DEVICE CHECK Lead Channel Setting Pacing Amplitude 2.125 CV DEVICE CHECK Lead Channel Setting Pacing Pulse Width 0.5 CV DEVICE CHECK Lead Channel Impedance Value 290 CV DEVICE CHECK Lead Channel Pacing Threshold Amplitude 1.375 CV DEVICE CHECK Lead Channel Pacing Threshold Pulse Width 0.5 CV DEVICE CHECK Lead Channel Pacing Threshold Date 2024-07-26 CV DEVICE CHECK Lead Channel Setting Pacing Amplitude 2.375 CV DEVICE CHECK Lead Channel Setting Pacing Pulse Width 0.5 CV DEVICE CHECK Tashi Setting Mode (NBG Code) DDD CV DEVICE CHECK Ventricular chambers paced during INFORMATION SYSTEMS SECURITY ANALYST pacing. BiV CV DEVICE CHECK Tashi Setting Lower Rate Limit 70 CV DEVICE CHECK Tashi Setting AT Mode Switch Rate 180 CV DEVICE CHECK Tashi Setting Maximum Tracking Rate 120 CV DEVICE CHECK Tashi Setting Maximum Sensor Rate 120 CV DEVICE CHECK Tashi Setting PAV Delay 150 CV DEVICE CHECK Tashi Setting JOHN Delay 120 CV DEVICE CHECK INFORMATION SYSTEMS SECURITY ANALYST LV-RV Delay 20 CV D EVICE CHECK Therapy Statistic Recent Shocks Delivered 0 CV DEVICE CHECK Therapy Statistic Recent Shocks Aborted 0 CV DEVICE CHECK Therapy Statistic Recent ATP Delivered 0 CV DEVICE CHECK Shock Measured Impedance 44 CV DEVICE CHECK Zone Setting Type Category VT CV DEVICE CHECK Rate 130 CV DEVICE CHECK Therapies 3 x Burst+Scan CV DE VICE CHECK Zone Setting Status On CV DEVICE CHECK Zone ID 1 CV DEVICE CHECK Zone Setting Type Category VT CV DEVICE CHECK Rate 150 CV DEVICE CHECK Therapies 3 x Burst+Scan,25.0J, 36.0J,40.0J x 2 CV DEVICE CHECK Zone Setting Status On CV DEVICE CHECK Zone ID 2 CV DEVICE CHECK Zone Setting Type Category VF CV DEVICE CHECK Rate 200 CV DEVICE CHECK Therapies 36.0J,36.0J,40.0J ,40.0J x 4 CV DEVICE CHECK Zone Setting Status On CV DEVICE CHECK Zone ID 3 CV DEVICE CHECK Date of Service 2024-10-01 CV DEVICE CHECK Anatomical Region Laterality Modality Device Interroga tion 07/26/2024 2:00 AM EST Impressions 08/12/2024 12:59 PM EST Heart Failure Diagnostic: Stable * Heart failure diagnostics assessed through the device * Status: Stable * No overt HF present Narrative Procedure Note Steve Pickard MD - 08/12/2024 IMPRESSION: Heart Failure Diagnostic: Stable * Heart failure diagnostics assessed through the device * Status: Stable * No overt HF present us Steve Pickard MD CV IMPLANTABLE CARDIAC DEV ICE PROCEDURES Final Result * (ABNORMAL) TSH reflex to free T4 (07/31/2024 8:11 AM EST) Thyroid Stimulating Hormone (TSH) 11.000(H) 0.450 - 4.500 uIU/mL [facility] 1 07/31/2024 8:11 AM EST 07/31/2024 Narrative [facility] 1 - 08/01/2024 6:07 AM EST Performed at: ??01 - [facility] [address] ??[id number] Fire Engineer: Kate Gann MD, Phone: ??[phone] us Lauren Fofana MD LAB BLOOD ORDERABLES Final Res ult [facility] * Thyroxine free (07/31/2024 8:11 AM EST) T4 (Thyroxine) Free (Direct) 1.00 0.82 - 1.77 ng/dL [facility] 1 07/31/2024 8:11 AM EST 07/31/2024 Narrative [facility] 1 - 08/01/2024 6:07 AM EST Performed at: ??01 - [facility] [address] ??[id number] Fire Engineer: Kate Gann MD, Phone: ??[phone] us Lauren Fofana MD LAB BLOOD ORDERABLES Final Res ult [facility] * (ABNORMAL) Lipid panel with LDL and HDL ratio (07/31/2024 8:11 AM EST) Cholesterol Total 102 100 - 199 mg/dL [facility] Triglycerides 81 0 - 149 mg/dL [facility] HDL Cholesterol 33(L) >39 mg/dL [facility] VLDL Cholesterol Calculated 16 5 - 40 mg/dL [facility] LDL Chol Calc (NIH) 53 0 - 99 mg/dL [facility] LDL/HDL Ratio 1.6 0.0 - 3.6 ratio [facility] Comment: ?LDL/HDL Ratio ?Men ??Women ?1/2 Avg.Risk ??1.0 ?1.5 ?Avg.Risk ??3.6 ?3.2 ? 2X Avg.Risk ??6.2 ?5.0 ? 3X Avg.Risk ??8.0 ?6.1 07/31/2024 8:11 AM EST 07/31/2024 Narrative [facility] - 08/01/2024 4:06 AM EST Performed at: ??01 - [facility] [address] ??[id number] Fire Engineer: Kate Gann MD, Phone: ??[phone] Lauren Fofana MD LAB BLOOD ORDERABLES Final Res ult Performing Organization Address [facility] de Phone Number [facility] * Hepatic function panel (07/31/2024 8:11 AM EST) Pathologist [facility] Protein Total 6.3 6.0 - 8.5 g/dL [facility] Albumin 3.9 3.8 - 4.8 g/dL [facility] Bilirubin Total 0.4 0.0 - 1.2 mg/dL [facility] Bilirubin Direct 0.18 0.00 - 0.40 mg/dL [facility] Alkaline Phosphatase 75 44 - 121 IU/L [facility] 1 Aspartate aminotransferase??(A ST) 24 0 - 40 IU/L [facility] Alanine Aminotransferase (ALT) 30 0 - 44 IU/L [facility] 1 07/31/2024 8:11 AM EST 07/31/2024 Narrative [facility] - 08/01/2024 8:09 AM EST Performed at: ??01 - [facility] [address] ??[id number] Fire Engineer: Kate Gann MD, Phone: ??[phone] Lauren Fofana MD LAB BLOOD ORDERABLES Final Res ult Performing Organization Address [facility] de Phone Number [facility] * ECG 12 lead (07/29/2024 2:11 PM EST) Ventricular Rate ECG 70 BPM [facility] Atrial Rate 70 BPM [facility] P-R Interval 90 ms [facility] QRS Duration 198 ms [facility] Q-T Interval 528 ms [facility] QTc 570 ms [facility] P Wave Ballard 58 degrees GEMUSE R [place] -90 degrees GEMUSE T [place] 103 degrees GEMUSE ECG Interpretation Atrial-sensed ventricular-pa karlee rhythm with occasional Premature ventricular complexes Abnormal ECG When compared with ECG of 13-MAY-2019 11:00, Premature ventricular complexes are now Present Vent. rate has increased BY ?? 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
--- OUTSIDE RECORDS SUMMARY | 2024-09-16 14:43 | XMS_ITS | Clinical Summary ---
Author Organization [facility] Address [address] [id number] Care Team Providers Care [employer] Combination Name Role Phone Noreen Sumner MD Primary Care Provider [phone] Allergies No known active allergies Medications Medication Sig Dispensed Refills Start Date End Date Status aspirin 81 MG chewable tablet 1 tablet 0 Active atorvastatin (LIPITOR) tablet 80 mg 1 tablet 0 03/17/2021 Active carvedilol (COREG) 6.25 MG tablet 0 12/23/2021 Active dulaglutide (Trulicity) 1.5 MG/0.5ML subcutaneous pen-injector INJECT ONE PEN SUBCUTANEOUSLY DIRECTED ONCE WEEKLY 0 04/21/2021 Active Empagliflozin (Jardiance) 25 MG TABS 1 tablet 0 11/07/2021 Active furosemide (LASIX) 80 MG tablet TAKE UP TO 2 TABLETS DAILY DIRECTED FOR SWELLING 0 03/15/2021 Active glyBURIDE (DIABETA) 5 MG tablet as directed 0 04/05/2017 Active insulin detemir (Levemir FlexTouch) 100 UNIT/ML injection 32 units 0 Active [place]-3 Fatty Acids (Fish Oil) 1000 MG CAPS as directed 0 Active pneumococcal vaccine (Prevnar 20) 0.5 ML BEV as directed 0 12/19/2021 Active warfarin (COUMADIN) 5 MG tablet as directed 0 01/24/2021 Active Cholecalciferol (Vitamin D) 125 MCG (5000 UT) CAPS Take by mouth. 0 Active amiodarone (PACERONE) 100 MG tablet Take 1 tablet (100 mg total) by mouth daily. 0 Active Sacubitril-Valsarta n (ENTRESTO PO) Take by mouth. 0 Activ e Active Problems No known active problems Social History Tobacco Use Types Packs/Day Years Used Date Smoking Tobacco: Never Assessed Sex and Gender Information Value Date Recorded Sex Assigned at Not on file Gender Identity Not on file Sexual Orientation Not on file Job Start Date Occupation Industry Not on file Not on file Not on file Last Filed Vital Signs Vital Sign Reading Time Taken Comments Blood Pressure 111/62 08/07/2023 8:26 AM EST Pulse 70 08/07/2023 8:26 AM EST Temperature 36.4 ??C (97.6 ??F) 08/07/2023 8:26 AM ES T Respiratory Rate - - Oxygen Saturation 98% 08/07/2023 8:26 AM EST Inhaled Oxygen Concentration - - Weight 86.2 kg (190 lb) 08/07/2023 8:26 AM EST Height 172.7 cm (5' 8 ) 08/07/2023 8:26 AM EST Body Mass Index 28.89 08/07/2023 8:26 AM EST Plan of Treatment Health Maintenance Due Date Last Done Comments Hepatitis C Screening 1950 Depression Screening 1962 Preventative Health Evaluation 1968 DTap / Tdap / Td (1 - Tdap) 1969 Colon Cancer Screening (Colonoscopy) 1995 Shingrix-Zoster Vaccine (1 of 2) 2000 Fall Risk Assessment 2015 Pneumococcal Vaccine (1 of 1 - PCV) 2015 COVID-19 Vaccine ( season) 2024 10/18/2021, 03/18/2021, 10/07/2020, Additional history exists Influenza Vaccine (#1) 2024 06/08/2022 RSV Adult > 60+ Yrs or (1 - 1-dose 75+ series) 2025 Hepatitis B Vaccines Aged Out No long er eligible based on patient's age to complete this topic RSV Ped < 20 months Aged Out No longe r eligible based on patient's age to complete this topic Care Teams [employer] Comb[employer] Relationship Specialty Start Date End Date Noreen Sumner MD [address] [place] [address] PCP - General Internal Medicine 10/25/21
--- OUTSIDE RECORDS SUMMARY | 2024-09-16 14:43 | XMS_ITS ---
Author Organization [facility] Address [address] [place] [address] [address] [place] [address] Care Team Providers Care Retail Buyer Name Role Phone DIMITRY HUGHES Primary Care Provider Allergies No Known Allergies REASON FOR VISIT 6 month f/u Medications Medication SIG (Take, Route, Frequency, Duration) Notes Start Date End Date Status Bydureon BCise 2 MG/0.85ML DIRECTED, INJECT SUBCUTANEOUSLY EVERY WEEK FOR 30 DAYS for 30 Active Lantus 100 UNIT/ML 40 units in the evening Subcutaneous Once a day or as directed for 30 days 09/11/2023 Active glipiZIDE ER 5 MG 1 tablet with breakfast Orally Once a day for 30 days 05/26/2024 Active Carvedilol 25 MG 1 tablet with food Orally Twice a day for 90 days Active Prevnar 20 0.5 ML as directed Intramuscular 1 for 365 days 12/19/2021 Not-Taking Fish Oil 1000 MG as directed Orally [...] Once a day for 90 days Active Amiodarone HCl 100 MG 1 tablet Orally Twice a day Active Aspirin 81 MG 1 tablet Orally Once a day Active Entresto 24-26 MG 1 tablet Orally Twice a day Active Jardiance 25 MG 1 tablet Orally Once a day Active Atorvastatin Calcium 80 MG 1 tablet Orally Once a day Active Social History Tobacco Use: Social History Observation [...] Points 0 Interpretation Negative Section Notes: Homosexual Vital Signs Temperature 98.4 degrees Fahrenheit 07/23/19 25 Oximetry 97 % 07/23/2024 Heart Rate 70 /min 07/23/2024 Blood pressure systolic 110 mm Hg 07/23/19 25 Blood pressure diastolic 70 mm Hg 025 Weight 187.9 lbs 07/23/2024 BMI 29.43 kg/m2 07/23/2024 Height 67 in 07/23/2024 Encounters Encounter Location Date Provider Diagnosis [facility] [address] [facility] [address] [place] [address] 07/23/2024 DIMITRY HUGHES Type 2 diabetes shaun itus with unspecified complications E11.8 ; Atherosclerosis of coronary artery bypass graft(s) without angina pectoris I25.810 ; Intracardiac thrombosis, not elsewhere classified I51.3 ; Essential (primary) hypertension I10 ; Mixed hyperlipidemia E78.2 and Encounter for screening for malignant neoplasm of prostate Z12.5 Assessments Encounter Date Diagnosis (ICD Code) Assessment Notes Treatment Notes Treatment Clinical Notes Section Notes 07/23/2024 Type 2 diabetes mellitus with unspecified complications (ICD-10 - E11.8) Chadwick is 72 years old gentleman with insulin-depende nt DM type II, coronary artery disease, status post CABG, CHF, status post ICD placement, hypertension, hyperlipidemia, polycythemia vera, chronic kidney disease is here today for follow-up. Plan is as follows Insulin-depende nt DM type II. His A1c has improved and it was 6.3 which is in a very good range. He is on the right medications. He follows up with conveyor loader Dr. Coyle. He is seen dry house operator . Foot care discussed with the patient. Repeat hemoglobin A1c before next appointment. He is on statins. Coronary artery disease/intraca rdiac thrombus/CHF/st atus post ICD placement. He is stable cardiac gutierres. He is on warfarin and INR is monitored by cardiology. His ICD is interrogated on a regular basis. He does not appear to be in volume overload and he is currently on Entresto 24/26 mg and also on Jardiance. He follows up with Dr. Fofana. Hypertension/hy perlipidemia. Blood pressure well controlled on current regimen and last lipid panel was within normal limits. Chronic kidney disease. He is stable at this point and he follows up with Dr. Leonides nicholas. He follows up with Dr. Butcher and he has lobotomies every 6 months. Screening blood work before next appointment 07/23/2024 Atherosclerosis of coronary artery bypass graft(s) without angina pectoris (ICD-10 - I25.810) Chadwick is 72 years old gentleman with insulin-depende nt DM type II, coronary artery disease, status post CABG, CHF, status post ICD placement, hypertension, hyperlipidemia, polycythemia vera, chronic kidney disease is here today for follow-up. Plan is as follows Insulin-depende nt DM type II. His A1c has improved and it was 6.3 which is in a very good range. He is on the right medications. He follows up with conveyor loader Dr. Coyle. He is seen dry house operator . Foot care discussed with the patient. Repeat hemoglobin A1c before next appointment. He is on statins. Coronary artery disease/intraca rdiac thrombus/CHF/st atus post ICD placement. He is stable cardiac gutierres. He is on warfarin and INR is monitored by cardiology. His ICD is interrogated on a regular basis. He does not appear to be in volume overload and he is currently on Entresto 24/26 mg and also on Jardiance. He follows up with Dr. Fofana. Hypertension/hy perlipidemia. Blood pressure well controlled on current regimen and last lipid panel was within normal limits. Chronic kidney disease. He is stable at this point and he follows up with Dr. Leonides nicholas. He follows up with Dr. Butcher and he has lobotomies every 6 months. Screening blood work before next appointment 07/23/2024 Intracardiac thrombosis, not elsewhere classified (ICD-10 - I51.3) Chadwick is 72 years old gentleman with insulin-depende nt DM type II, coronary artery disease, status post CABG, CHF, status post ICD placement, hypertension, hyperlipidemia, polycythemia vera, chronic kidney disease is here today for follow-up. Plan is as follows Insulin-depende nt DM type II. His A1c has improved and it was 6.3 which is in a very good range. He is on the right medications. He follows up with conveyor loader Dr. Coyle. He is seen dry house operator . Foot care discussed with the patient. Repeat hemoglobin A1c before next appointment. He is on statins. Coronary artery disease/intraca rdiac thrombus/CHF/st atus post ICD placement. He is stable cardiac gutierres. He is on warfarin and INR is monitored by cardiology. His ICD is interrogated on a regular basis. He does not appear to be in volume overload and he is currently on Entresto 24/26 mg and also on Jardiance. He follows up with Dr. Fofana. Hypertension/hy perlipidemia. Blood pressure well controlled on current regimen [...] Chadwick is 72 years old gentleman with insulin-depende nt DM type II, coronary artery disease, status post CABG, CHF, status post ICD placement, hypertension, hyperlipidemia, polycythemia vera, chronic kidney disease is here today for follow-up. Plan is as follows Insulin-depende nt DM type II. His A1c has improved and it was 6.3 which is in a very good range. He is on the right medications. He follows up with conveyor loader Dr. Coyle. He is seen dry house operator . Foot care discussed with the patient. Repeat hemoglobin A1c before next appointment. He is on statins. Coronary artery disease/intraca rdiac thrombus/CHF/st atus post ICD placement. He is stable cardiac gutierres. He is on warfarin and INR is monitored by cardiology. His ICD is interrogated on a regular basis. He does not appear to be in volume overload and he is currently on Entresto 24/26 mg and also on Jardiance. He follows up with Dr. Fofana. Hypertension/hy perlipidemia. Blood pressure well controlled on current regimen and last lipid panel was within normal limits. Chronic kidney disease. He is stable at this point and he follows up with Dr. Leonides nicholas. He follows up with Dr. Butcher and he has lobotomies every 6 months. Screening blood work before next appointment 07/23/2024 Mixed hyperlipidemia (ICD-10 - E78.2) Chadwick is 72 years old gentleman with insulin-depende nt DM type II, coronary artery disease, status post CABG, CHF, status post ICD placement, hypertension, hyperlipidemia, polycythemia vera, chronic kidney disease is here today for follow-up. Plan is as follows Insulin-depende nt DM type II. His A1c has improved and it was 6.3 which is in a very good range. He is on the right medications. He follows up with conveyor loader Dr. Coyle. He is seen dry house operator . Foot care discussed with the patient. Repeat hemoglobin A1c before next appointment. He is on statins. Coronary artery disease/intraca rdiac thrombus/CHF/st atus post ICD placement. He is stable cardiac gutierres. He is on warfarin and INR is monitored by cardiology. His ICD is interrogated on a regular basis. He does not appear to be in volume overload and he is currently on Entresto 24/26 mg and also on Jardiance. He follows up with Dr. Fofana. Hypertension/hy perlipidemia. Blood pressure well controlled on current regimen [...] Chadwick is 72 years old gentleman with insulin-depende nt DM type II, coronary artery disease, status post CABG, CHF, status post ICD placement, hypertension, hyperlipidemia, polycythemia vera, chronic kidney disease is here today for follow-up. Plan is as follows Insulin-depende nt DM type II. His A1c has improved and it was 6.3 which is in a very good range. He is on the right medications. He follows up with conveyor loader Dr. Coyle. He is seen dry house operator . Foot care discussed with the patient. Repeat hemoglobin A1c before next appointment. He is on statins. Coronary artery disease/intraca rdiac thrombus/CHF/st atus post ICD placement. He is stable cardiac gutierres. He is on warfarin and INR is monitored by cardiology. His ICD is interrogated on a regular basis. He does not appear to be in volume overload and he is currently on Entresto 24/26 mg and also on Jardiance. He follows up with Dr. Fofana. Hypertension/hy perlipidemia. Blood pressure well controlled on current regimen and last lipid panel was within normal limits. Chronic kidney disease. He is stable at this point and he follows up with Dr. Coyle Polycythemia vera. He follows up with Dr. Butcher and he has lobotomies every 6 months. Screening blood work before next appointment Plan Of Treatment Future Test Test Name Order Date Hemoglobin [id number] 07/23/2024 [id number] 07/23/2024 Albumin/Creatinine Ratio,Urine-[id number] Lipid Panel-[id number] 07/23/2024 Comp. Metabolic Panel ([id number] 2024 PSA (Serial Monitor)-[id number] 07/23/2024 Next Appt Details Follow Up: 6 Months- AW, Angelica son: Provider Name:DIMITRY HUGHES , 02/09/2025 03:00:00 PM, [address] [place] [address], [phone], Progress Notes * Chadwick MURILLODOB:1950 (73 yo M)Acc No.[id number]:07/23/2024 Progress Notes Patient:?Chadwick MURILLO Provider:?DIMITRY HUGHES MD :1950???Age:73 Y???Sex:Male Chandu e:07/23/2024 Phone: Address:[address] [place], [place] [id number] Subjective: * Chief Complaints: * ???6 month f/u * HPI: ???Internal Medicine:?Mr. Murillo is a 73 year old gentleman with insulin-dependent diabetes mellitus type II, CAD/CABG x3 and sees Dr. 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 Coyle and bilateral varicose veins s/p ablation here for follow-up He is in his usual state of health. He is status post bilateral cataract surgeries by Dr. Black last October. Hearing is stable. No systemic or constitutional symptoms. Neurocognitive functions intact. He checks his blood sugars at home and readings are pretty much within normal limits. Denies any recent hypoglycemic or hyperglycemic episodes. He is physically active and walks as much as he can. He gained 3 lbs since last visit. No history of fall. He does not need help with ADLs and IADLs. He does not appear anxious or depressed. He sleeps well, appetite is good. No symptoms. He sometimes has loose stools. He denies any other active issues or concerns. * ROS:?General/Constitutional:?Overall health?Good.?Change in appetite?denies.?Chills?denies.?Fever?denies.?Night sweats?denies.?Sleep disturbance?denies.?Weight gain?admits, 3?pounds.?Weight loss?denies.?Neurologic:?Difficulty speaking?denies.?Dizziness?denies.?Gait abnormality?denies.?Headache?denies.?Loss of strength?denies.?Memory loss?denies.?Seizures?denies.?Tingling/Numbness?denies .?Ophthalmologic:?Blurred vision?denies.?Discharge?denies.?Dry eye?denies.?Red eye?denies.?ENT:?Change in Voice?Denies.?Cold Symptoms?Denies.?Cough?Denies.?Dizziness?Denies.?Nasal Congestion?Denies.?Otalgia?Denies.?postnasal drip?Denies.?Blocked ear?denies.?Nosebleed?denies.?Snoring?denies.?Cardiovascular:?Diaphoresis?Denies.?Pedal Edema?Denies.?PND (Paroxsymal nocturnal dyspnea)?Denies.?Chest pain?denies.?Difficulty laying flat?denies.?Dyspnea on exertion?denies.?Heart murmur?denies.?Orthopnea?denies.?Respiratory:?Snoring?denies.?Asthma?denies.?Cough?denies.?Shortness of breath with exertion?denies.?Sputum production?denies.?Wheezing?denies.?Gastrointestinal:?Change in bowel habits?denies.?Constipation?denies.?Decreased appetite?denies.?Diarrhea?denies.?Heartburn?denies.?Nausea?denies.?Vomiting?damaris es.?Musculoskeletal:?tingling/numbness?Denies.?myalgias?Denies.?Joint Swelling?Denies.?extremeties?normal.?Arthritis?denies.?Back problems?denies.?Carpal tunnel?denies.?Joint stiffness?denies.?Muscle aches?denies.?Endocrine:?Bowel Changes?Denies.?Breast Discharge?Denies.?poor libido?Denies.?Cold intolerance?denies.?Excessive sweating?denies.?Excessive thirst?denies.?Frequent urination?denies.?Thyroid problems?denies.?Skin:?Bruising?Denies.?Eczema?denies.?Hair changes?denies.?Rash?denies.?Skin lesion(s)?denies.?Psychiatric:?Anxiety?denies.?Depressed mood?denies.?Difficulty sleeping?denies.?Nervous breakdown?denies.?Substance abuse?denies.?Urology:?abnormal menstrual bleeding?denies.?blood in urine?denies.?burning on urination?denies.?difficulty urinating?denies.?discharge?denies.?dysuria?denies.? * Medical History:? * Surgical History:? * Hospitalization/Major Diagno stic Procedure:? * Family History:?Father: dece ased 79 yrs, diagnosed with Hypertension, Cancer.?Mother: aortic aneurysm.?Paternal Grand Mother: colon cancer.?Maternal Grand Father: diagnosed with Cancer.? * Social History:?Tobacco Use:?Tobacco Use/Smoking?Are you a?former smoker ?How long has it been since you last smoked??> 10 years ???Drugs/Alcohol:?Alcohol Screen (Audit-C)?Did you have a drink containing alcohol in the past year??No ?Points?0 ?Interpretation?Negative ???Miscellaneous:?Exercise: walking. ?Marital status: . ?Occupation: Retired. ???Homosexual. * Medications:?TakingAmiodaron e HCl 100 MG Tablet 1 tablet Orally Twice a day Entresto 24-26 MG Tablet 1 tablet Orally Twice a day Aspirin 81 MG Tablet Chewable 1 tablet Orally Once a day Atorvastatin Calcium 80 MG Tablet 1 tablet Orally Once a day Jardiance 25 MG Tablet 1 tablet Orally Once a day Fish Oil 1000 MG Capsule as directed Orally 3 capsules daily Warfarin Sodium 5 MG Tablet as directed Orally Daily , Notes to Pharmacist: Followed by cardiologyBD Pen Needle Areli 2nd Gen 32G X 4 MM Miscellaneous USE ONCE DAILY Furosemide 40 MG Tablet 1 TABLET Orally Once a day Clotrimazole 1 % Cream 1 application Externally Twice a day Lantus 100 UNIT/ML Solution 40 units in the evening Subcutaneous Once a day or as directed Bylori BCise 2 MG/0.85ML Auto-injector DIRECTED, INJECT SUBCUTANEOUSLY EVERY WEEK FOR 30 DAYS Carvedilol 25 MG Tablet 1 tablet with food Orally Twice a day glipiZIDE ER 5 MG Tablet Extended Release 24 Hour 1 tablet with breakfast Orally Once a day Taking Amiodarone HCl 100 MG Tablet 1 tablet Orally Twice a day Taking Entresto 24-26 MG Tablet 1 tablet Orally Twice a day Taking Aspirin 81 MG Tablet Chewable 1 tablet Orally Once a day Taking Atorvastatin Calcium 80 MG Tablet 1 tablet Orally Once a day Taking Jardiance 25 MG Tablet 1 tablet Orally Once a day Taking Fish Oil 1000 MG Capsule as directed Orally 3 capsules daily Taking Warfarin Sodium 5 MG Tablet as directed Orally Daily , Notes to Pharmacist: Followed by cardiologyTaking BD Pen Needle Areli 2nd Gen 32G X 4 MM Miscellaneous USE ONCE DAILY Taking Furosemide 40 MG Tablet 1 TABLET Orally Once a day Taking Clotrimazole 1 % Cream 1 application Externally Twice a day Taking Lantus 100 UNIT/ML Solution 40 units in the evening Subcutaneous Once a day or as directed Taking Bydureon BCise 2 MG/0.85ML Auto-injector DIRECTED, INJECT SUBCUTANEOUSLY EVERY WEEK FOR 30 DAYS Taking Carvedilol 25 MG Tablet 1 tablet with food Orally Twice a day Taking glipiZIDE ER 5 MG Tablet Extended Release 24 Hour 1 tablet with breakfast Orally Once a day Not-TakingPrevnar 20 0.5 ML Suspension Prefilled Syringe as directed Intramuscular 1 Medication List reviewed and reconciled with the patientNot-Taking Prevnar 20 0.5 ML Suspension Prefilled Syringe as directed Intramuscular 1 Medication List reviewed and reconciled with the patient * Allergies:?N.K.D.A.no[Allerg ies Verified] Objective: * Vitals:?Temp:98.4F, Oxygen s at %:97%, HR:70/min, BP:110/70mm Hg, Wt:187.9lbs, BMI:29.43Index, Ht: 67 in. * ???Past Orders: ???Lab:Hemoglobin A1c (Order Date - 05/26/2024) (Collection Date & Time - 07/17/2024 12:18 PM) ? Value Reference Range ?Hemoglobin A1c 6.3 H - %Hb ?Estimated Average Glucose 134 - mg/dL ???Lab:Hgb A1c with eAG Greer hermosillo-[id number] (Order Date - 01/28/2024) (Collection Date & Time - 01/28/2024 08:19 AM) ? Value Reference Range ?Hemoglobin A1c 7.1 H 4.8-5 .6 - % ?Estim. Avg Glu (eAG) 157 - mg/dL ???Lab:LIPID PANEL (Order Da te - 07/13/2023) (Collection Date & Time - 07/13/2023 09:31 AM) ? Value Reference Range ?LDL CHOLESTEROL, CALCULATED 60 (0-130) - MG/DL ?CHOLESTEROL, TOTAL 106 ( <200) - MG/DL ?HDL CHOL 28 L (>39) - MG/ DL ?NON HDL CHOLESTEROL (CALC) 78 (<160) - MG/DL ?TRIGLYCERIDE 89 (<150) - MG/DL ???Lab:COMPREHENSIVE METABOL IC PANEL (Order Date - 07/13/2023) (Collection Date & Time - 07/13/2023 09:31 AM) ? Value Reference Range ?ALBUMIN 4.2 (3.4-4.8) - GM/DL ?ALK PHOS 80 (40-129) - U/L ?BILIRUBIN,TOTAL 0.5 (0-1 .2) - MG/DL ?CALCIUM 9.0 (8.6-10.5) - MG/DL ?BICARBONATE 27 (22-29) - MMOL/L ?CHLORIDE 106 (98-107) - MMOL/L ?EST GFR NON 41 - ML/MIN/1.73 M2 ?CREATININE 1.8 H (0.7-1.2) - MG/DL ?ANION GAP 10 (4-17) - ?GLUCOSE 68 L (70-99) - MG /DL ?AST 18 (0-40) - U/L ?ALT 18 (0-41) - U/L ?POTASSIUM 4.2 (3.6-5.2) - MMOL/L ?SODIUM 143 (133-145) - M MOL/L ?TOTAL PROTEIN 6.7 (6.2-8 .2) - GM/DL ?BUN 40 H (8-23) - MG/DL ?AG RATIO 1.7 - ???Lab:MICROALBUMIN, URINE ( Order Date - 07/13/2023) (Collection Date & Time - 07/13/2023 09:28 AM) ? Value Reference Range ?MICRO-ALBUMIN 64.0 H (<20) - MG/L ?MALB/CREAT RATIO 86.2 H (0- 20) - MG/GM ?URINE CREAT FOR MICRO ALBUMIN 74.5 - MG/DL * Examination: ???General Examination: ?Psychiatry?Normal.?GENERAL APPEARANCE:?Well developed, well nourished, in no acute distress.?MUSCULOSKELETAL:?Normal.?HEAD:?Normocephalic, atraumatic.?EYES:?Pupils equal, round, reactive to light and accommodation, sclera non-icteric.?EARS:?Normal.?ORAL CAVITY:?Normal.?THROAT:?Clear.?OROPHARYNX?Normal.?SINUSES?Normal.?NECK/THYROID:?Neck supple, full range of motion, no cervical lymphadenopathy.?SKIN:?Warm and dry, no suspicious lesions.?HEART:?Normal.?LUNGS:?Normal.?BREASTS:?__.?ABDOMEN:?Soft, nontender, nondistended, bowel sounds present, normal.?EXTREMITIES:?varicose?veins?left?LE,?venous?stasis?bilateral?LE.?PERIPHERAL PULSES:?Normal.?NEUROLOGIC:?Nonfocal,? appropriate?motor strength normal upper and lower extremities, sensory exam intact.?FEMALE GENITOURINARY:?__.?MALE GENITOURINARY:?..., .?PODIATRIC:?tinea pedis/unguium.?Kettle Worker? .? Assessment: * Assessment: 1.?Type 2 diabetes mellitus with unspecified complications - E11.8 (Primary)???2.?Atherosclerosis of coronary artery bypass graft(s) without angina pectoris - I25.810???3.?Intracardiac thrombosis, not elsewhere classified - I51.3???4.?Essential (primary) hypertension - I10???5.?Mixed hyperlipidemia - E78.2???6.?Encounter for screening for malignant neoplasm of prostate - Z12.5??? Chadwick is 72 years old jl cowan with insulin-dependent DM type II, coronary artery disease, status post CABG, CHF, status post ICD placement, hypertension, hyperlipidemia, polycythemia vera, chronic kidney disease is here today for follow-up.? Plan is as follows Insulin-dependent DM type II.? His A1c has improved and it was 6.3 which is in a very good range.? He is on the right medications.? He follows up with conveyor loader Dr. Coyle.? He is seen dry house operator.? Foot care discussed with the patient.? Repeat hemoglobin A1c before next appointment.? He is on statins. Coronary artery disease/intracardiac thrombus/CHF/status post ICD placement.? He is stable cardiac gutierres.? He is on warfarin and INR is monitored by cardiology.? His ICD is interrogated on a regular basis.? He does not appear to be in volume overload and he is currently on Entresto 24/26 mg and also on Jardiance.? He follows up with Dr. Fofana. Hypertension/hyperlipidemia.? Blood pressure well controlled on current regimen and last lipid panel was within normal limits. Chronic kidney disease.? He is stable at this point and he follows up with Dr. Coyle Polycythemia vera.? He follows up with Dr. Butcher and he has lobotomies every 6 months. Screening blood work before next appointment Plan: * Treatment: 2.?Atherosclerosis of mcknight ry artery bypass graft(s) without angina pectoris?LAB: [id number] (Ordered for 07/23/2024) 3.?Encounter for screening f or malignant neoplasm of prostate?LAB: PSA (Serial Monitor)-[id number] (Ordered for 07/23/2024) * Procedure Codes:?G2211 Compl ex e/m visit add [id number] HG A1C LEVEL LT 7.0%1123F ACP DISCUSS/DSCN MKR [id number] COLORECTAL CA SCREEN DOC [id number] BMI<30 AND >=22 CALC & [id number] NEG SCR D PT NOT ELIG F/U/PLN [id number] ELDER MALTX SCR DOC NEG NO F/U [id number] Pt scrn tbco id as non [id number] MOST RECENT SYSTOLIC BP < 140MM [id number] MOST RECENT DIASTOLIC BP < 90MM [id number] NORMAL BP READING DOC F/U NOT RQR * Follow Up:?6 Months- AW * * Sign off status: Completed true * Provider:?DIMITRY HUGHES MD Date:?07/23 Generated for Piter ly/Curtis/eTransmitting on:?09/16/2024 02:43 PM EDT History and Physical Notes * HPI (History of Present Illness) Category Sub-Category Detail Notes Category Not es Internal Medicine Mr. Christiano echevarria is a 73 year old gentleman with insulin-dependent diabetes mellitus type II, CAD/CABG x3 and sees Dr. 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 Coyle and bilateral varicose veins s/p ablation here for follow-up He is in his usual state of health. He is status post bilateral cataract surgeries by Dr. Black last October. Hearing is stable. No systemic or constitutional symptoms. Neurocognitive functions intact. He checks his blood sugars at home and readings are pretty much within normal limits. Denies any recent hypoglycemic or hyperglycemic episodes. He is physically active and walks as much as he can. He gained 3 lbs since last visit. No history of fall. He does not need help with ADLs and IADLs. He does not appear anxious or depressed. He sleeps well, appetite is good. No symptoms. He sometimes has loose stools. He denies any other active issues or concerns. Examination Category Sub-Category Detail Notes Category Not es General Examination GENERAL APPEARANCE: Well dev eloped, well nourished, in no acute distress HEAD: Normocephalic, atrau matic EYES: Pupils equal, round, reactive to light and accommodation, sclera non-icteric EARS: Normal THROAT: Clear NECK/THYROID: Neck supple, full ra nge of motion, no cervical lymphadenopathy HEART: Normal LUNGS: Normal ABDOMEN: Soft, nontender, non distended, bowel sounds present, normal NEUROLOGIC: Nonfocal, appropriat e motor strength normal upper and lower extremities, sensory exam intact SKIN: Warm and dry, no gabriele picious lesions EXTREMITIES: varicose veins left LE, venous stasis bilateral LE PERIPHERAL PULSES: Normal BREASTS: __ MUSCULOSKELETAL: Normal MALE GENITOURINARY: ..., FEMALE GENITOURINARY: __ ORAL CAVITY: Normal PODIATRIC: tinea pedis/unguium Psychiatry Normal OROPHARYNX Normal SINUSES Normal Kettle Worker
--- OUTSIDE RECORDS SUMMARY | 2024-09-16 14:43 | XMS_ITS | Clinical Summary ---
Author Organization [facility] Address [address] [facility] [address] [place] [address] Phone Care Team Providers Care Plaster And Stucco Worker Name Role Phone Noreen Sumner MD Primary Care Provider Allergies No known active allergies Medications omega-3 (FISH OIL) 1000 MG capsule Take 2 capsules by mouth 1 (one) time each day Active aspirin (ST TAMI) 81 MG EC tablet Take 1 tablet by mouth 1 (one) time each day Active carvedilol (COREG) 6.25 MG tablet Take 3 tablets by mouth 1 (one) time each day 2 tabs am 1 tab at night Active insulin detemir (Levemir FlexTouch) 100 UNIT/ML injection Inject 36 Units under the skin every night Active isosorbide mononitrate (IMDUR) 30 MG 24 hr tablet Take 0.5 tablets by mouth 1 (one) time each day Active warfarin (COUMADIN) 5 MG tablet Take 1 tablet by mouth Active glyBURIDE (DIABETA) 5 MG tablet TAKE 2 TABLETS BY MOUTH TWICE A DAY 120 tablet 1 Active atorvastatin (LIPITOR) 80 MG tablet Take 80 mg by mouth 1 (one) time each day 1 Active Trulicity 1.5 MG/0.5ML solution pen-injector 1 Active furosemide (LASIX) 80 MG tablet TAKE UP TO 2 TABLETS DAILY DIRECTED FOR SWELLING 1 Active Jardiance 25 MG tablet TAKE 1 TABLET BY MOUTH 1 TIME EACH DAY. 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 Patient has history of anemia in the past however over the last couple years his hematocrit and hemoglobin have been increasing. His last hemoglobin was 19.1 and his hematocrit was 59.7 this was 05/2021. I will repeat his labs at this time and I have sent a referral to hematology for further evaluation. Chronic ischemic heart disease 03/16/2021 Hypertension 01/13/2021 Benign hypertensive renal disease 01/11/2021 Stage 3b chronic kidney disease 01/11/2021 Bicuspid aortic valve 09/10/2020 Overview (07/17/2022): Bicuspid aortic valve History of aortic valve replacement 09/10/2020 Overview (07/17/2022): 2017 status post aortic valve replacement with a #24 Parks model 2700 pericardial valve Last Assessment & Plan: Mr. Murillo has history of a bicuspid aortic valve with severe aortic stenosis status post aortic valve replacement using a #29 Parks model 2700 pericardial valve and had repair of the left femoral artery and vein with Dr. Garg on 02/16/2017. Echocardiogram showing stable valve. The patient was instructed regarding appropriate antibiotic prophylaxis. Pure hypercholesterolemia 09/10/2020 Overview (07/17/2022): Last Assessment & Plan: Last LDL was 57. Goal <70. Continue with statin as prescribed. Embolism and thrombosis of unspecified artery Overview (07/17/2022): Last Assessment & Plan: Apical thrombus resolved on most recent echocardiogram. Continue with warfarin for anticoagulation in light on persistent LVEF of 20-25%. Automatic implantable cardiac defibrillator in s itu 07/28/2010 Resolved Problems Problem Noted Date Diagnosed Date Resolved Date Aortic valve stenosis 12/29/20212021 Cardiac murmur 12/29/2021 12/29/2021 Cerebrovascular accident 12/29/2021 Coronary arteriosclerosis 12/29/2021 Left ventricular cardiac dysfunction 12/29/2021 12/29/2021 Hyperlipidemia 12/29/2021 12/29/2021 Diverticular disease 12/29/2021 022 Edema 01/11/2021 12/29/2021 Hyperkalemia 01/11/2021 12/29/2021 Urinary tract obstruction 02/14/2017 Immunizations Name Administration Dates Next Due Influenza Split High Dose Preservative Free IM 06/08/2022 Moderna SARS-COV-2 10/18/2021,,10/07/2020,2020 Family History Medical History Relation Comments Diabetes Father Hypertension Father Relation Status Comments Father Mother Social History Tobacco Use Types Packs/Day Years Used Date Smoking Tobacco: Never Smokeless Tobacco: Never Tobacco Cessation:Counseling Given: No Alcohol Use Standard Drinks/Week Comments No 0 (1 standard drink = 0.6 oz pur e alcohol) Sex and Gender Information Value Date Recorded Sex Assigned at Not on file Legal Sex Male 4:40 PM EST Gender Identity Not on file Sexual Orientation Not on file Last Filed Vital Signs Vital Sign Reading Time Taken Comments Blood Pressure 108/70 01/01/2023 1:54 PM EDT Pulse 64 01/01/2023 1:54 PM EDT Temperature - - Respiratory Rate - - Oxygen Saturation 95% 05/17/2021 2:16 PM EST Inhaled Oxygen Concentration - - Weight 86.6 kg (191 lb) 01/01/2023 1:54 PM EDT Height 172.7 cm (5' 8 ) 05/17/2021 2:16 PM EST Body Mass Index 29.04 05/17/2021 2:16 PM EST Plan of Treatment Health Maintenance Due Date Last Done Comments Pneumococcal Vaccine: 65+ Years (1 of 2 - PCV) 1956 Colorectal Cancer Screening: Annual FOBT 1999 Colorectal Cancer Screening: Colonoscopy 1999 Colorectal Cancer Screening: Sigmoidoscopy 1999 Diabetes: Hemoglobin A1C 10/04/2021 Diabetes: Ophthalmology Exam 10/04/2021 Diabetes: Pedal Pulse Checked 10/04/2021 Diabetes: Sensory Foot Exam 10/04/2021 Diabetes: Visual Foot Exam 10/04/2021 Influenza Vaccine (#1) 2024 2, 06/08/2022 Hepatitis B Vaccine Aged Out No longe r eligible based on patient's age to complete this topic Insurance MEDICARE FORMERLY [facility] MEDICARE Care Teams Plaster And Stucco Worker Relationship Specialty Start Date End Date Noreen Sumner MD [address] [place] [address] PCP - General Internal Medicine 05/17/21
== END 2024-09-16 12:20 | disposition home or self-care (01) ==
LOC: HO.HKAS 11:58
PROVIDERS: PCP Hospitalist; Visit Provider Internal Medicine Nephrology
DX: N18.31 Chronic kidney disease, stage 3a (principal); I10 Essential (primary) hypertension; E11.21 Type 2 diabetes mellitus with diabetic nephropathy; M10.072 Idiopathic gout, left ankle and foot
CPT/HCPCS: 99214

== ENCOUNTER → 2024-09-16 11:57 | Outpatient (BNVA) | payer MEDICARE, OTHER, SELFPAY | PROVIDERS: PCP Hospitalist; Visit Provider Internal Medicine Nephrology | DX: I12.9 Hypertensive chronic kidney disease with stage 1 through stage 4 chronic kidney disease, or unspecified chronic kidney disease (principal); N18.31 Chronic kidney disease, stage 3a; E11.21 Type 2 diabetes mellitus with diabetic nephropathy; M10.072 Idiopathic gout, left ankle and foot | CPT/HCPCS: 99212 ==

== ENCOUNTER 2024-10-14 08:02 | Outpatient (REF) | payer MEDICARE, OTHER, SELFPAY ==
--- OUTSIDE RECORDS SUMMARY | 2024-10-14 08:09 | XMS_ITS | Encounter Summary ---
Author Organization [facility] Address [address] [place] [address] Care Team Providers Care Construction Craft Laborer Name Role Phone Noreen Sumner MD Primary Care Provider [phone] Encounter Details Date Type Department Care Team (Late st Contact Info) Description 10/10/2024 Lab [facility] [address] [place] [phone] Sergei Fofana MD [address] [place] [address] [address] [place], [place] [id number] Atrial fibrillation, unspecified type (CMS/HCC) Social History Tobacco Use Types Packs/Day Years [...] Description 01/27/2025 8:50 AM EDT Office Visit [facility] [address] [place] [address] Sergei Fofana MD [address] [place] [address] [address] [place] [address] 06/17/2025 9:00 AM EST Office Visit [facility] Hematology Oncology [address] [place] [phone] Max Butcher MD [address] [place] [address] 08/26/2025 9:00 AM EST Ancillary Procedure [facility] - [address] [place] [phone] documented as of this encounter Visit Diagnoses Diagnosis Atrial fibrillation, unspecified type (CMS/HCC) Encounter for adjustment or management of cardiac device documented in this encounter Orders Lab Orders Without Results Count Last Ordered D ate First Ordered Date PROTHROMBIN TIME WITH INR 1 10/03/2024 documented in this encounter Care Teams Construction Craft Laborer Relationship Specialty Start Date End Date Noreen Sumner MD [address] [place] [address] PCP - General Internal Medicine 03/17/21 documented as of this encounter
--- OUTSIDE RECORDS SUMMARY | 2024-10-14 08:09 | XMS_ITS | Encounter Summary ---
Author Organization [facility] Address [address] [place] [address] Care Team Providers Care Corporate Legal Manager Name Role Phone Noreen Sumner MD Primary Care Provider [phone] Encounter Details Date Type Department Care Team (Late st Contact Info) Description 10/10/2024 8:15 PM EDT Ancillary Procedure [facility] Cardiology [facility] - [facility] [address] [facility] [address] [place] [phone] Social History Tobacco Use Types Packs/Day Years [...] Description 01/27/2025 8:50 AM EDT Office Visit [facility] Cardiology [facility] - [address] [place] [phone] Sergei Fofana MD [address] [place] [address] [address] [place] [address] 06/17/2025 9:00 AM EST Office Visit [facility] Hematology Oncology [address] [place] [phone] Max Butcher MD [address] [place] [address] 08/26/2025 9:00 AM EST Ancillary Procedure [facility] - [address] [place] [phone] documented as of this encounter Procedures Procedure Name Priority Date/Time Associated Diagnosis Comments CARDIAC DEVICE CHECK- REMOTE- MURJ Routine 10/10/2024 8:14 PM EDT documented in this encounter Results * Cardiac device check - Remote- MURJ (10/10/2024 8:14 PM EDT) Date Time Interrogation Session [id number] CV DEVICE CHECK Type Interrogation Session Remote Scheduled CV DEVICE CHECK Implantable Pulse Generator Telephone Sales Representative [employer] CV DEVICE CHECK Implantable Pulse Generator Type PROJECT MANAGEMENT-D CV DEVICE CHECK Implantable Pulse Generator Model [id number] Everlasting Footprint() CV DEVICE CHECK Implantable Pulse Generator Serial Number [id number] CV DEVICE CHECK Implantable Pulse Generator Implant Date [id number] CV DEVICE CHECK Battery Remaining Percentage 27.00 CV DEVICE CHECK Battery Remaining Longevity 20.0 CV DEVICE CHECK Battery Voltage 2.830 CV D EVICE CHECK Battery TRANSIT VEHICLE INSPECTOR Trigger 2.590 CV DEVICE CHECK Battery Status Middle of Service CV DEVICE CHECK Capacitor Charge Time 9.300 CV DEVICE CHECK Tashi Statistic RA Percent Paced 30.00 CV DEVICE CHECK Tashi Statistic RV Percent Paced 97.00 CV DEVICE CHECK PROJECT MANAGEMENT Statistic PROJECT MANAGEMENT Percent Paced 97.00 CV DEVICE CHECK Atrial Tachy Statistic AT/AF Kelley Percent 1.00 CV DEVICE CHECK Lead Channel Sensing Intrinsic Amplitude 5.000 CV DEVICE CHECK Lead Channel Setting Sensing Sensitivity 0.30 CV DEVICE CHECK Lead Channel Impedance Value 290 CV DEVICE CHECK Lead Channel Pacing Threshold Amplitude 0.750 CV DEVICE CHECK Lead Channel Pacing Threshold Pulse Width 0.5 CV DEVICE CHECK Lead Channel RA Pacing Threshold Date 2024-03-25 CV DEVICE CHECK Lead Channel Setting Pacing Amplitude 2.000 CV DEVICE CHECK Lead Channel Setting Pacing Pulse Width 0.5 CV DEVICE CHECK Lead Channel Sensing Intrinsic Amplitude 12.000 CV DEVICE CHECK Lead Channel Setting Sensing Sensitivity 0.50 CV DEVICE CHECK Lead Channel Impedance Value 490 CV DEVICE CHECK Lead Channel Pacing Threshold Amplitude 0.625 CV DEVICE CHECK Lead Channel Pacing Threshold Pulse Width 0.5 CV DEVICE CHECK Lead Channel RV Pacing Threshold Date 2024-03-25 CV DEVICE CHECK Lead Channel Setting Pacing Amplitude 2.000 CV DEVICE CHECK Lead Channel Setting Pacing Pulse Width 0.5 CV DEVICE CHECK Lead Channel Impedance Value 330 CV DEVICE CHECK Lead Channel Pacing Threshold Amplitude 1.250 CV DEVICE CHECK Lead Channel Pacing Threshold Pulse Width 0.5 CV DEVICE CHECK Lead Channel Pacing Threshold Date 2024-03-25 CV DEVICE CHECK Lead Channel Setting Pacing Amplitude 2.250 CV DEVICE CHECK Lead Channel Setting Pacing Pulse Width 0.5 CV DEVICE CHECK Tashi Setting Mode (NBG Code) DDD CV DEVICE CHECK Ventricular chambers paced during PROJECT MANAGEMENT pacing. BiV CV DEVICE CHECK Tashi Setting Lower Rate Limit 70 CV DEVICE CHECK Tashi Setting AT Mode Switch Rate 180 CV DEVICE CHECK Tashi Setting Maximum Tracking Rate 120 CV DEVICE CHECK Tashi Setting Maximum Sensor Rate 120 CV DEVICE CHECK Tashi Setting PAV Delay 150 CV DEVICE CHECK Tashi Setting JOHN Delay 120 CV DEVICE CHECK PROJECT MANAGEMENT LV-RV Delay 20 CV D EVICE CHECK Therapy Statistic Recent Shocks Delivered 0 CV DEVICE CHECK Therapy Statistic Recent Shocks Aborted 0 CV DEVICE CHECK Therapy Statistic Recent ATP Delivered 0 CV DEVICE CHECK Shock Measured Impedance 45 CV DEVICE CHECK Zone Setting Type Category [...] 3 CV DEVICE CHECK Date of Service 2024-04-02 CV DEVICE CHECK Anatomical Region Laterality Modality Device Interroga tion 03/25/2024 1:14 AM EDT Impressions 03/26/2024 7:51 AM EDT Normal Remote: No Events * Normal Device Function * Alerts or events: Hx of False AMS / oversensing * Battery: Battery is at 27%, 1.67 yrs * Sensing, impedance and thresholds reviewed * Programmed parameters reviewed * Presenting rhythm reviewed * Heart Rate Histograms reviewed * No significant changes noted Narrative Procedure Note Steve Pickard MD - 10/10/2024 IMPRESSION: Normal Remote: No Events * Normal Device Function * Alerts or events: Hx of False AMS / oversensing * Battery: Battery is at 27%, 1.67 yrs * Sensing, impedance and thresholds reviewed * Programmed parameters reviewed * Presenting rhythm reviewed * Heart Rate Histograms reviewed * No significant changes noted us Steve Pickard MD CV IMPLANTABLE CARDIAC DEV ICE PROCEDURES Final Result documented in this encounter Visit Diagnoses Not on filedocumented in this encounter Care Teams Corporate Legal Manager Relationship Specialty Start Date End Date Noreen Sumner MD [address] [place] [address] PCP - General Internal Medicine 03/17/21 documented as of this encounter
--- OUTSIDE RECORDS SUMMARY | 2024-10-14 08:09 | XMS_ITS | Patient Health Record ---
Author Organization [employer] [facility] Address [address] [place] [address] Care Team Providers Care Reduction Plant Supervisor Name Role Phone MICHAELGamaliel DIMITRY Primary Care Provider Allergies No Known Allergies Results Component Value Reference Range Notes Hgb A1c with eAG Estimation- [id number] Reviewed date:01/30/2024 08:30:53 AM Interpretation: Performing Lab:[facility], [address] [place] [address], Phone - [phone], Director - Evin Notes/Report: Hemoglobin A1c 7.1 4.8-5.6 % . Prediabetes: 5.7 - 6.4 Diabetes: >6.4 Glycemic control for adults with diabetes: <7.0 Estim. Avg Glu (eAG) 157 Hemoglobin A1c Reviewed date:07/20/2024 07:20:32 PM Interpretation: Performing Lab:[facility], [address] [place] [address], Phone - [phone], Director - Padmini Notes/Report: Hemoglobin A1c 6.3 Reference Range: [place] Diabetes Association (ADA) Guidelines: <5.7: Decreased risk for diabetes 5.7 - 6.4: Increased risk for diabetes >6.4: Ongoing Hyperglycemia of any cause <7.0: Glycemic control for adults with diabetes Estimated Average Glucose 134 Reason For Referral Reason Evaluation and manag ement Diagnosis 1 Tinea pedis (B35.3) Referral Organization [facility] Referring Provider First Name DIMITRY Referring Provider Last Name MICHAELGamaliel Referring Provider Speciality Internal M edicine Referred Provider Specialty Podiatry General Notes Referral sent to [facility] in [place] - Dept will call patient for scheduling.Ana [...] Once a day for 90 days Active Carvedilol 25 MG TAKE 1 TABLET BY MOUTH TWICE A DAY WITH FOOD FOR 90 DAYS for 90 Active Ozempic (0.25 or 0.5 MG/DOSE) 2 [...] W/U Status Risk Notes Problem Polycythemia vera (856289023) Polycythemia vera (D45) Active confirmed Problem Disorder due to type 2 diabetes mellitus (583057232) Type 2 diabetes mellitus with unspecified complications (E11.8) Active confirmed Problem Mixed hyperlipidemia (818238161) Mixed hyperlipidemia (E78.2) Active confirmed Problem Essential hypertension (20981400) Essential (primary) hypertension (I10) Active confirmed Problem 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 (951057005399968) 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) Active confirmed Problem 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 (716308939) 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) Active confirmed Problem Chronic systolic heart failure (669321902) Chronic systolic (congestive) heart failure (I50.22) Active confirmed Problem Endocardial thrombosis (95524034) Intracardiac thrombosis, 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 confirmed Problem Cardiac pacemaker in situ (676169601) Presence of cardiac pacemaker (Z95.0) Active confirmed Problem Automatic implantable cardiac defibrillator in situ (845485462) Presence of automatic (implantable) cardiac defibrillator (Z95.810) Active confirmed Vital Signs Heart Rate 70 /min 07/23/2024 Temperature 98.4 degrees Fahrenheit 07/23/2024 Blood pressure diastolic 70 mm Hg 07/23/2024 Oximetry 97 % 07/23/2024 Height 67 in 07/23/2024 Blood pressure systolic 110 mm Hg 07/23/2024 Weight 187.9 lbs 07/23/2024 BMI 29.43 kg/m2 07/23/2024 Encounters Encounter Location Date Provider Diagnosis [address] [address] 02/04/2024 DIMITRY HUGHES Encounter for genera l adult medical examination without abnormal findings Z00.00 ; Type 2 diabetes mellitus with unspecified complications E11.8 ; Atherosclerosis of coronary artery bypass graft(s) without angina pectoris I25.810 ; Chronic systolic (congestive) heart failure I50.22 ; Essential (primary) hypertension I10 and Mixed hyperlipidemia E78.[address] [place] [address] 07/23/2024 DIMITRY HUGHES Type 2 diabetes shaun itus with unspecified complications E11.8 ; Atherosclerosis of coronary artery bypass graft(s) without angina pectoris I25.810 ; Intracardiac thrombosis, not elsewhere classified I51.3 ; Essential (primary) hypertension I10 ; Mixed hyperlipidemia E78.2 and Encounter for screening for malignant neoplasm of prostate Z12.[address] [place] [address] 05/26/2024 DIMITRY HUGHES Type 2 diabetes shaun itus with unspecified complications E11.[address] [place] [address] 08/06/2024 DIMITRY HUGHES Assessments Encounter Date Diagnosis [...] the right medications. He follows up with tour leader Dr. Coyle. He is seen student support services director. Foot care discussed with the patient. Repeat [...] mellitus with unspecified complications (ICD-10 - E11.8) 02/04/2024 Type 2 diabetes mellitus with unspecified [...] on right medications. He has seen his student support services director in the past 1 year. Foot care [...] and is asymptomatic. He follows up with volunteer services assistant. He is on right medications. Monitor weight [...] a month. Eye screening. He sees his student support services director regularly. Dental screening. He sees dentist regularly. [...] this note under HIPAA compliance and under [place] law mandated for scribe services. Patient aware [...] on right medications. He has seen his student support services director in the past 1 year. Foot care [...] and is asymptomatic. He follows up with volunteer services assistant. He is on right medications. Monitor weight [...] a month. Eye screening. He sees his student support services director regularly. Dental screening. He sees dentist regularly. [...] this note under HIPAA compliance and under [place] law mandated for scribe services. Patient aware of service. Verbal consent and written consent taken from the patient. Patient understands and verbalizes understanding of the scribes services and all questions answered regarding scribes services. Patient agrees to use of scribes services. 02/04/2024 Atherosclerosis of coronary artery bypass graft(s) [...] on right medications. He has seen his student support services director in the past 1 year. Foot care [...] and is asymptomatic. He follows up with volunteer services assistant. He is on right medications. Monitor weight [...] a month. Eye screening. He sees his student support services director regularly. Dental screening. He sees dentist regularly. [...] this note under HIPAA compliance and under [place] law mandated for scribe services. Patient aware of service. Verbal consent and written consent taken from the patient. Patient understands and verbalizes understanding of the scribes services and all questions answered regarding scribes services. Patient agrees to use of scribes services. 07/23/2024 Atherosclerosis of coronary artery bypass graft(s) [...] the right medications. He follows up with tour leader Dr. Coyle. He is seen student support services director. Foot care discussed with the patient. Repeat [...] the right medications. He follows up with tour leader Dr. Coyle. He is seen student support services director. Foot care discussed with the patient. Repeat [...] Screening blood work before next appointment 02/04/2024 Chronic systolic (congestive) heart failure (ICD-10 [...] on right medications. He has seen his student support services director in the past 1 year. Foot care [...] and is asymptomatic. He follows up with volunteer services assistant. He is on right medications. Monitor weight [...] a month. Eye screening. He sees his student support services director regularly. Dental screening. He sees dentist regularly. [...] this note under HIPAA compliance and under [place] law mandated for scribe services. Patient aware of service. Verbal consent and written consent taken from the patient. Patient understands and verbalizes understanding of the scribes services and all questions answered regarding scribes services. Patient agrees to use of scribes services. 02/04/2024 Essential (primary) hypertension (ICD-10 - I10) [...] on right medications. He has seen his student support services director in the past 1 year. Foot care [...] and is asymptomatic. He follows up with volunteer services assistant. He is on right medications. Monitor weight [...] a month. Eye screening. He sees his student support services director regularly. Dental screening. He sees dentist regularly. [...] this note under HIPAA compliance and under [place] law mandated for scribe services. Patient aware of service. Verbal consent and written consent taken from the patient. Patient understands and verbalizes understanding of the scribes services and all questions answered regarding scribes services. Patient agrees to use of scribes services. 07/23/2024 Essential (primary) hypertension (ICD-10 - I10) [...] the right medications. He follows up with tour leader Dr. Coyle. He is seen student support services director. Foot care discussed with the patient. Repeat [...] the right medications. He follows up with tour leader Dr. Coyle. He is seen student support services director. Foot care discussed with the patient. Repeat [...] Screening blood work before next appointment 02/04/2024 Mixed hyperlipidemia (ICD-10 - E78.2) Mr. [...] on right medications. He has seen his student support services director in the past 1 year. Foot care [...] and is asymptomatic. He follows up with volunteer services assistant. He is on right medications. Monitor weight and avoid salt intake. If there is weight gain he will inform us. Polycythemia vera. He sees Dr. Butcher. Chronic kidney disease stage 3b. He does not appear to be in volume overload. Advised appropriate hydration. Avoid NSAIDs. He sees Dr. Coyle. Tinea pedalexis. Foot care discussed. Referred to Podiatry. Class 1 obesity. Advised dietary restrictions and regimental exercise. Goal is to lose 5-6 lbs a month. Eye screening. He sees his student support services director regularly. Dental screening. He sees dentist regularly. [...] this note under HIPAA compliance and under [place] law mandated for scribe services. Patient aware of service. Verbal consent and written consent taken from the patient. Patient understands and verbalizes understanding of the scribes services and all questions answered regarding scribes services. Patient agrees to use of scribes services. 07/23/2024 Encounter for screening for malignant neoplasm [...] the right medications. He follows up with tour leader Dr. Coyle. He is seen student support services director. Foot care discussed with the patient. Repeat [...] Future Test Test Name Order Date Hemoglobin [id number] 07/23/2024 [id number] 07/23/2024 Albumin/Creatinine Ratio,Urine-[id number] Lipid Panel-[id number] 07/23/2024 Comp. Metabolic Panel [id number] 2024 PSA (Serial Monitor)-[id number] 07/23/2024 Next Appt Details Provider Name:MORAESQUINTEN HUGHES , 02/09/2025 03:00:00 PM, [address] [place] [address], [phone], Insurance Providers Payer Name Payer Address Payer Phone Subscriber Number Group Number Insured Name Patient Relationship to Insured Coverage Start Date Coverage End Date Medicare [address] [place] [address] [id number] Chadwick Siddiqi i Self - patient is the insured 6 [id number] ([employer]) [address] [place] [address] [phone] [id number] Chadwick Siddiqi i Self - patient is the insured Medical (General) History Medical History History ICD Code insulin-dependent diabetes mellitus type II CAD/CABG x3, Dr. 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 Coyle CHF s/p ICD placement, last EF around 20 -25 % bilateral varicose veins Personal history of COVID-19 Primary polycythemia verniko, Dr. Butcher Surgical History Surgery Date(Month/Year) CABG x3, [facility] 2010 aortic valve replacement, [facility] 2017 appendectomy bilateral cataract surgeries, Dr. Black 0 10/2022
--- OUTSIDE RECORDS SUMMARY | 2024-10-14 08:09 | XMS_ITS | Encounter Summary ---
Author Organization [facility] Address [address] [place] [address] Care Team Providers Care Labor/Excavator Name Role Phone Noreen Sumner MD Primary Care Provider [phone] Encounter Details Date Type Department Care Team (Late st Contact Info) Description 10/10/2024 11:25 PM EDT Ancillary Procedure [facility] Cardiology [facility] - [facility] [address] [facility] [address] [place] [phone] Social History Tobacco Use Types Packs/Day Years [...] Description 01/27/2025 8:50 AM EDT Office Visit [facility] Cardiology [facility] - [address] [place] [phone] Sergei Fofana MD [address] [place] [address] DRIVE [address] [place] [address] 06/17/2025 9:00 AM EST Office Visit [facility] Hematology Oncology [address] [place] [phone] Max Butcher MD [address] [place] [address] 08/26/2025 9:00 AM EST Ancillary Procedure [facility] - [address] [place] [address] documented as of this encounter Procedures Procedure Name Priority Date/Time Associated Diagnosis Comments CARDIAC DEVICE CHECK- REMOTE- MURJ Routine 10/10/2024 11:23 PM EDT documented in this encounter Results * Cardiac device check - Remote- MURJ (10/10/2024 11:23 PM EDT) Date Time Interrogation Session [id number] CV DEVICE CHECK Type Interrogation Session Remote Scheduled CV DEVICE CHECK Implantable Pulse Generator Labor/Excavator St.Oneal CV DEVICE CHECK Implantable Pulse Generator Type HOT TOP LINER HELPER-D CV DEVICE CHECK Implantable Pulse Generator Model 3357-40Q [employer]() CV DEVICE CHECK Implantable Pulse Generator Serial Number [id number] CV DEVICE CHECK Implantable Pulse Generator Implant Date 20180117 CV DEVICE CHECK Battery Remaining Percentage 28.00 CV DEVICE CHECK Battery Remaining Longevity 22.0 CV DEVICE CHECK Battery Voltage 2.840 CV D EVICE CHECK Battery LOSS CONTROL REPRESENTATIVE Trigger 2.590 CV DEVICE CHECK Battery Status Middle of Service CV DEVICE CHECK Capacitor Charge Time 9.300 CV DEVICE CHECK Tashi Statistic RA Percent Paced 18.00 CV DEVICE CHECK Tashi Statistic RV Percent Paced 97.00 CV DEVICE CHECK HOT TOP LINER HELPER Statistic HOT TOP LINER HELPER Percent Paced 96.00 CV DEVICE CHECK Atrial Tachy Statistic AT/AF Page Percent 1.00 CV DEVICE CHECK Lead Channel Sensing Intrinsic Amplitude 4.600 CV DEVICE CHECK Lead Channel Setting Sensing Sensitivity 0.30 CV DEVICE CHECK Lead Channel Impedance Value 310 CV DEVICE CHECK Lead Channel Pacing Threshold Amplitude 0.750 CV DEVICE CHECK Lead Channel Pacing Threshold Pulse Width 0.5 CV DEVICE CHECK Lead Channel RA Pacing Threshold Date 2024-02-26 CV DEVICE CHECK Lead Channel Setting Pacing Amplitude 2.000 CV DEVICE CHECK Lead Channel Setting Pacing Pulse Width 0.5 CV DEVICE CHECK Lead Channel Sensing Intrinsic Amplitude 12.000 CV DEVICE CHECK Lead Channel Setting Sensing Sensitivity 0.50 CV DEVICE CHECK Lead Channel Impedance Value 560 CV DEVICE CHECK Lead Channel Pacing Threshold Amplitude 1.125 CV DEVICE CHECK Lead Channel Pacing Threshold Pulse Width 0.5 CV DEVICE CHECK Lead Channel RV Pacing Threshold Date 2024-02-26 CV DEVICE CHECK Lead Channel Setting Pacing Amplitude 2.125 CV DEVICE CHECK Lead Channel Setting Pacing Pulse Width 0.5 CV DEVICE CHECK Lead Channel Impedance Value 330 CV DEVICE CHECK Lead Channel Pacing Threshold Amplitude 1.250 CV DEVICE CHECK Lead Channel Pacing Threshold Pulse Width 0.5 CV DEVICE CHECK Lead Channel Pacing Threshold Date 2024-02-26 CV DEVICE CHECK Lead Channel Setting Pacing Amplitude 2.250 CV DEVICE CHECK Lead Channel Setting Pacing Pulse Width 0.5 CV DEVICE CHECK Tashi Setting Mode (NBG Code) DDD CV DEVICE CHECK Ventricular chambers paced during HOT TOP LINER HELPER pacing. BiV CV DEVICE CHECK Tashi Setting Lower Rate Limit 70 CV DEVICE CHECK Tashi Setting AT Mode Switch Rate 180 CV DEVICE CHECK Tashi Setting Maximum Tracking Rate 120 CV DEVICE CHECK Tashi Setting Maximum Sensor Rate 120 CV DEVICE CHECK Tashi Setting PAV Delay 150 CV DEVICE CHECK Tashi Setting JOHN Delay 120 CV DEVICE CHECK HOT TOP LINER HELPER LV-RV Delay 20 CV D EVICE CHECK Therapy Statistic Recent Shocks Delivered 0 CV DEVICE CHECK Therapy Statistic Recent Shocks Aborted 0 CV DEVICE CHECK Therapy Statistic Recent ATP Delivered 0 CV DEVICE CHECK Shock Measured Impedance 51 CV DEVICE CHECK Zone Setting Type Category [...] Anatomical Region Laterality Modality Device Interroga tion 02/26/2024 1:05 AM EDT Impressions 03/02/2024 8:53 PM EDT Normal Remote: No Events * Normal Device Function * Alerts or events: None * Battery: Battery is at 28%, 1.83 yrs * Sensing, impedance and thresholds reviewed * Programmed parameters reviewed * Presenting rhythm reviewed * Heart Rate Histograms reviewed * No significant changes noted Heart Failure Diagnostic: Stable * Heart failure diagnostics assessed through the device * Status: Stable * No overt HF present Narrative Procedure Note Steve Pickard MD - 10/10/2024 IMPRESSION: Normal Remote: No Events * Normal Device Function * Alerts or events: None * Battery: Battery is at 28%, 1.83 yrs * Sensing, impedance and thresholds reviewed * Programmed parameters reviewed * Presenting rhythm reviewed * Heart Rate Histograms reviewed * No significant changes noted Heart Failure Diagnostic: Stable * Heart failure diagnostics assessed through the device * Status: Stable * No overt HF present Steve Pickard MD CV IMPLANTABLE CARDIAC DEV ICE PROCEDURES Final Result documented in this encounter Visit Diagnoses Not on filedocumented in this encounter Care Teams Labor/Excavator Relationship Specialty Start Date End Date Nroeen Sumner MD [address] [place] [address] PCP - General Internal Medicine 03/17/21 documented as of this encounter
--- OUTSIDE RECORDS SUMMARY | 2024-10-14 08:09 | XMS_ITS | Encounter Summary ---
Author Organization [facility] Address [address] [place] [address] Care Team Providers Care Compliance Aide Name Role Phone Noreen Sumner MD Primary Care Provider Encounter Details Date Type Department Care Team (Late st Contact Info) Description 10/10/2024 3:30 PM EDT Ancillary Procedure [facility] Cardiology [facility] [address] [facility] [address] [place] [phone] Social History Tobacco Use Types Packs/Day Years [...] Description 01/27/2025 8:50 AM EDT Office Visit [facility] Cardiology [facility] - [address] [place] [phone] Sergei Fofana MD [address] [place] [address] DRIVE [address] [place] [address] 06/17/2025 9:00 AM EST Office Visit [facility] Hematology Oncology [address] [place] [phone] Max Butcher MD [address] [place] [address] 08/26/2025 9:00 AM EST Ancillary Procedure [facility] - [address] [place] [address] documented as of this encounter Procedures Procedure Name Priority Date/Time Associated Diagnosis Comments CARDIAC DEVICE CHECK- REMOTE- MURJ Routine 10/10/2024 3:27 PM EDT documented in this encounter Results * Cardiac device check - Remote- MURJ (10/10/2024 3:27 PM EDT) Date Time Interrogation Session [id number] CV DEVICE CHECK Type Interrogation Session Remote Scheduled CV DEVICE CHECK Implantable Pulse Generator Formula Checker St.Oneal CV DEVICE CHECK Implantable Pulse Generator Type INTERNATIONAL SOURCING MANAGER-D CV DEVICE CHECK Implantable Pulse Generator Model [id number] [employer]() CV DEVICE CHECK Implantable Pulse Generator Serial Number [id number] CV DEVICE CHECK Implantable Pulse Generator Implant Date 20180117 CV DEVICE CHECK Battery Remaining Percentage 27.00 CV DEVICE CHECK Battery Remaining Longevity 20.0 CV DEVICE CHECK Battery Voltage 2.830 CV D EVICE CHECK Battery LOADER OPERATOR SUPERVISOR Trigger 2.590 CV DEVICE CHECK Battery Status Middle of Service CV DEVICE CHECK Capacitor Charge Time 9.300 CV DEVICE CHECK Tashi Statistic RA Percent Paced 22.00 CV DEVICE CHECK Tashi Statistic RV Percent Paced 97.00 CV DEVICE CHECK INTERNATIONAL SOURCING MANAGER Statistic INTERNATIONAL SOURCING MANAGER Percent Paced 97.00 CV DEVICE CHECK Atrial Tachy Statistic AT/AF [place] Percent 1.00 CV DEVICE CHECK Lead Channel Sensing Intrinsic Amplitude 4.800 CV DEVICE CHECK Lead Channel Setting Sensing Sensitivity 0.30 CV DEVICE CHECK Lead Channel Impedance Value 330 CV DEVICE CHECK Lead Channel Pacing Threshold Amplitude 0.625 CV DEVICE CHECK Lead Channel Pacing Threshold Pulse Width 0.5 CV DEVICE CHECK Lead Channel RA Pacing Threshold Date 2024-04-25 CV DEVICE CHECK Lead Channel Setting Pacing Amplitude 2.000 CV DEVICE CHECK Lead Channel Setting Pacing Pulse Width 0.5 CV DEVICE CHECK Lead Channel Sensing Intrinsic Amplitude 12.000 CV DEVICE CHECK Lead Channel Setting Sensing Sensitivity 0.50 CV DEVICE CHECK Lead Channel Impedance Value 530 CV DEVICE CHECK Lead Channel Pacing Threshold Amplitude 1.000 CV DEVICE CHECK Lead Channel Pacing Threshold Pulse Width 0.5 CV DEVICE CHECK Lead Channel RV Pacing Threshold Date 2024-04-25 CV DEVICE CHECK Lead Channel Setting Pacing Amplitude 2.000 CV DEVICE CHECK Lead Channel Setting Pacing Pulse Width 0.5 CV DEVICE CHECK Lead Channel Impedance Value 310 CV DEVICE CHECK Lead Channel Pacing Threshold Amplitude 1.125 CV DEVICE CHECK Lead Channel Pacing Threshold Pulse Width 0.5 CV DEVICE CHECK Lead Channel Pacing Threshold Date 2024-04-25 CV DEVICE CHECK Lead Channel Setting Pacing Amplitude 2.125 CV DEVICE CHECK Lead Channel Setting Pacing Pulse Width 0.5 CV DEVICE CHECK Tashi Setting Mode (NBG Code) DDD CV DEVICE CHECK Ventricular chambers paced during INTERNATIONAL SOURCING MANAGER pacing. BiV CV DEVICE CHECK Tashi Setting Lower Rate Limit 70 CV DEVICE CHECK Tashi Setting AT Mode Switch Rate 180 CV DEVICE CHECK Tashi Setting Maximum Tracking Rate 120 CV DEVICE CHECK Tashi Setting Maximum Sensor Rate 120 CV DEVICE CHECK Tashi Setting PAV Delay 150 CV DEVICE CHECK Tashi Setting JOHN Delay 120 CV DEVICE CHECK INTERNATIONAL SOURCING MANAGER LV-RV Delay 20 CV D EVICE CHECK Therapy Statistic Recent Shocks Delivered 0 CV DEVICE CHECK Therapy Statistic Recent Shocks Aborted 0 CV DEVICE CHECK Therapy Statistic Recent ATP Delivered 0 CV DEVICE CHECK Shock Measured Impedance 47 CV DEVICE CHECK Zone Setting Type Category [...] 3 CV DEVICE CHECK Date of Service 2024-07-02 CV DEVICE CHECK Anatomical Region Laterality Modality Device Interroga tion 04/25/2024 1:25 PM EDT Impressions 05/03/2024 3:47 PM EDT Heart Failure Diagnostic: Stable * Heart failure diagnostics assessed through the device * Status: Stable * No overt HF present Additional Notes: heartfa Narrative Procedure Note Steve Pickard MD - 10/10/2024 IMPRESSION: Heart Failure Diagnostic: Stable * Heart failure diagnostics assessed through the device * Status: Stable * No overt HF present Additional Notes: heartfa us Steve Pickard MD CV IMPLANTABLE CARDIAC DEV ICE PROCEDURES Final Result documented in this encounter Visit Diagnoses Not on filedocumented in this encounter Care Teams Compliance Aide Relationship Specialty Start Date End Date Noreen Sumner MD [address] [place] [phone] PCP - General Internal Medicine 03/17/21 documented as of this encounter
--- OUTSIDE RECORDS SUMMARY | 2024-10-14 08:09 | XMS_ITS | Encounter Summary ---
Author Organization [facility] Address [address] [place] [address] Phone Care Team Providers Care Unhairing Inspector Name Role Phone Noreen Sumner MD Primary Care Provider [phone] Reason for Visit * Reason Comments Med Refill Encounter Details Date Type Department Care Team (Late st Contact Info) Description 04/09/2021 Refill [facility] [address] [place] [phone] Linwood Coyle MD Social History Tobacco Use [...] on filedocumented in this encounter Care Teams Unhairing Inspector Relationship Specialty Start Date End Date Noreen Sumner MD [address] [place] [address] PCP - General Internal Medicine 05/17/21 documented as of this encounter
--- OUTSIDE RECORDS SUMMARY | 2024-10-14 08:09 | XMS_ITS ---
Author Organization [facility] Address [address] [place] [phone] Care Team Providers Care Paving Supervisor Name Role Phone IDMITRY HUGHES Primary Care Provider REASON FOR VISIT New RX Request Medications Medication SIG (Take, Route, Frequency, Duration) Notes Start Date End Date Status Ozempic (0.25 or 0.5 MG/DOSE) 2 MG/1.5ML 0.25 mg Subcutaneous once a week for 30 days Active Encounters Encounter Location Date Provider Diagnosis [address] [address] 08/06/2024 DIMITRY HUGHES Plan Of Treatment Medication Medication Name Sig Start Date Stop Date Notes Ozempic (0.25 or 0.5 MG/DOSE) 2 MG/1.5ML 0.25 mg Subcutaneous once a week for 30 days Next Appt Details Provider Name:DIMITRY HUGHES , 02/09/2025 03:00:00 PM, [address] [place] [address], [place], [phone], Progress Notes * Chadwick CARDOSODOB:1950 (73 yo M)Acc No.[id number]:08/06/2024 Patient:?Chadwick CARDOSO :1950???Age:73 Y???Sex:Male Phone: Address:[address] [place] [address], [place] [address] * Refills? Refill Ozempic (0.25 or 0.5 MG/DOSE) Solution Pen-injector, 2 MG/1.5ML, Subcutaneous, 6 ml, 0.25 mg, once a week, 30 days, Refills=3 * true * Date:? Generated for Piter ly/Curtis/Minooitting on:?10/14/2024 08:09 AM EDT
--- OUTSIDE RECORDS SUMMARY | 2024-10-14 08:10 | XMS_ITS ---
Author Organization [facility] Address [address] [place] [phone] Care Team Providers Care Copy Holder Name Role Phone DIMITRY HUGHES Primary Care Provider [phone] Results Component Value Reference Range Notes Hemoglobin A1c Reviewed date:07/20/2024 07:20:32 PM Interpretation: Performing Lab:[facility], [address] [place] [address], Phone - [phone], Director - [facility] Notes/Report: Hemoglobin A1c 6.3 Reference Range: [place] [employer] (ADA) Guidelines: <5.7: Decreased risk [...] Active Encounters Encounter Location Date Provider Diagnosis [address] [address] 05/26/2024 DIMITRY HUGHES Type 2 diabetes mellitus [...] Name:DIMITRY HUGHES , 02/09/2025 03:00:00 PM, [address] [address], [place], [address], Progress Notes * Chadwick CARDOSODOB:1950 (73 yo M)Acc No.[id number]:05/26/2024 Patient:?Chadwick CARDOSO :1950???Age:73 Y???Sex:Male Phone: Address:[address] [place] [address], [place] [address] * Refills? Start glipiZIDE ER Tablet Extended [...] true * Date:? Generated for Piter ly/Curtis/eTstanislavsmitting on:?10/14/2024 08:09 AM EDT
--- OUTSIDE RECORDS SUMMARY | 2024-10-14 08:10 | XMS_ITS | Clinical Summary ---
Author Organization [facility] Address [address] [id number] Care Team Providers Care Sheet Catcher Name Role Phone Noreen Sumner MD Primary Care Provider [phone] Allergies No known active allergies Medications Medication [...] 100 UNIT/ML injection 32 units 0 Active [place]-3 Fatty Acids (Fish Oil) 1000 MG CAPS [...] age to complete this topic Care Teams Sheet Catcher Relationship Specialty Start Date End Date Noreen Sumner MD [address] [place] [address] PCP - General Internal Medicine 10/25/21
--- OUTSIDE RECORDS SUMMARY | 2024-10-14 08:10 | XMS_ITS ---
Author Organization [facility] Address [address] [place] [address] [address] [place] [address] Care Team Providers Care Air Box Tester Name Role Phone DIMITRY HUGHES Primary Care [...] 07/23/2024 Encounters Encounter Location Date Provider Diagnosis [facility] [address] [facility] [address] [place] [address] 07/23/2024 DIMITRY HUGHES Type 2 diabetes shaun [...] the right medications. He follows up with home health registered nurse Dr. Coyle. He is seen ball mill mixer . Foot care discussed with the patient. [...] the right medications. He follows up with home health registered nurse Dr. Coyle. He is seen ball mill mixer . Foot care discussed with the patient. [...] the right medications. He follows up with home health registered nurse Dr. Coyle. He is seen ball mill mixer . Foot care discussed with the patient. [...] the right medications. He follows up with home health registered nurse Dr. Coyle. He is seen ball mill mixer . Foot care discussed with the patient. [...] the right medications. He follows up with home health registered nurse Dr. Coyle. He is seen ball mill mixer . Foot care discussed with the patient. [...] the right medications. He follows up with home health registered nurse Dr. Coyle. He is seen ball mill mixer . Foot care discussed with the patient. [...] Future Test Test Name Order Date Hemoglobin [id number] 07/23/2024 [id number] 07/23/2024 Albumin/Creatinine Ratio,Urine-[id number] Lipid Panel-[id number] 07/23/2024 Comp. Metabolic Panel ([id number] 2024 PSA (Serial Monitor)-[id number] 07/23/2024 Next Appt Details Follow Up: 6 Months- AW, Angelica son: Provider Name:DIMITRY HUGHES , 02/09/2025 03:00:00 PM, [address] [place] [address], [phone], Progress Notes * Chadwick MURILLODOB:1950 (73 yo M)Acc No.[id number]:07/23/2024 Progress Notes Patient:?Chadwick MURILLO Provider:?DIMITRY HUGHES MD :1950???Age:73 Y???Sex:Male Chandu e:07/23/2024 Phone: Address:[address] [place], [place] [phone] Subjective: * Chief Complaints: * ???6 month [...] - mg/dL ???Lab:Hgb A1c with eAG Greer hermosillo-[id number] (Order Date - 01/28/2024) (Collection Date & [...] extremities, sensory exam intact.?FEMALE GENITOURINARY:?__.?MALE GENITOURINARY:?..., .?PODIATRIC:?tinea pedis/unguium.?Safety And Security Manager? .? Assessment: * Assessment: 1.?Type 2 diabetes [...] the right medications.? He follows up with home health registered nurse Dr. Coyle.? He is seen ball mill mixer.? Foot care discussed with the patient.? Repeat [...] ry artery bypass graft(s) without angina pectoris?LAB: TSH-[id number] (Ordered for 07/23/2024) 3.?Encounter for screening f or malignant neoplasm of prostate?LAB: PSA (Serial Monitor)-686875 (Ordered for 07/23/2024) * Procedure Codes:?G2211 Compl ex e/m visit add [id number] HG A1C LEVEL LT 7.0%1123F ACP DISCUSS/DSCN MKR [id number] COLORECTAL CA SCREEN DOC [id number] BMI<30 AND >=22 CALC & [id number] NEG SCR D PT NOT ELIG F/U/PLN [id number] ELDER MALTX SCR DOC NEG NO F/U MIEX0998 Pt scrn tbco id as non [id number] MOST RECENT SYSTOLIC BP < 140MM LUP1720 MOST RECENT DIASTOLIC BP < 90MM [id number] NORMAL BP READING DOC F/U NOT RQR * Follow Up:?6 Months- AW * * Sign off status: Completed true * Provider:?DIMITRY HUGHES MD Date:?07/23 Generated for Piter ly/Curtis/eTransmitting on:?10/14/2024 08:10 AM EDT History and Physical Notes * HPI [...] pedis/unguium Psychiatry Normal OROPHARYNX Normal SINUSES Normal Safety And Security Manager
--- OUTSIDE RECORDS SUMMARY | 2024-10-14 08:10 | XMS_ITS | Clinical Summary ---
Author Organization [facility] Address [address] [place] [address] Phone Care Team Providers Care Corn Shucker Name Role Phone Noreen Sumner MD Primary Care Provider [phone] Allergies No known active allergies Medications atorvastatin (LIPITOR) 80 mg tablet Take 1 tablet (80 mg total) by mouth at bedtime. 1 Active carvediloL (COREG) 6.25 mg tablet Take 1 tablet (6.25 mg total) by mouth 2 (two) times a day with meals. 2 Active cholecalciferol (VITAMIN D-3) 125 mcg (5,000 unit) capsule Take 1 capsule (5,000 Units total) by mouth 1 (one) time each day. Active empagliflozin (Jardiance) 25 mg tablet Take 1 tablet (25 mg total) by mouth 1 (one) time each day in the morning. Active furosemide (LASIX) 80 mg tablet Take 0.5 tablets (40 mg total) by mouth 1 (one) time each day. 1 Active insulin detemir (LEVEMIR) 100 unit/mL injection Inject 40 Units into the skin at bedtime. Active omega-3 acid ethyl esters (LOVAZA) 1 gram capsule 1 capsule (1 g total) 1 (one) time each day. Active warfarin (COUMADIN) 5 mg tablet as directed 1 Active warfarin (COUMADIN) 1 mg tablet Take 1 tablet (1 mg total) by mouth 1 (one) time each day with dinner. 30 each 11 4 Active aspirin 81 mg EC tablet Take 1 tablet (81 mg total) by mouth 1 (one) time each day. Active Bydureon BCise 2 mg/0.85 mL auto-injector injection Inject 0.85 mL (2 mg total) under the skin 1 (one) time per week. 4 Active glipiZIDE (GLUCOTROL XL) 5 mg 24 hr tablet Take 1 tablet (5 mg total) by mouth 1 (one) time each day. 4 Active sacubitriL-valsar fischer (Entresto) 24-26 mg per tablet Take 1 tablet by mouth 2 (two) times a day. 180 tablet 3 5 Active amiodarone (PACERONE) 100 mg tabletIndications :Paroxysmal atrial fibrillation (CMS/HCC),Essenti al (primary) hypertension Take 1 tablet (100 mg total) by mouth 1 (one) time each day. 90 tablet 3 5 Active Active Problems Problem Noted Date Diagnosed Date Coronary artery disease invo lving [place] coronary artery of [place] heart without angina pectoris 07/29/2024 Assessment & [...] Encounters Date Type Department Care Team Description 10/11/2024 12:55 AM EDT Ancillary Procedure [facility] Cardiology [facility] [address] [place] [address] Arrived 10/10/2024 11:25 PM EDT Ancillary Procedure [facility] - [address] [place] [address] 10/10/2024 8:15 PM EDT Ancillary Procedure [facility] - [address] [place] [address] 10/10/2024 3:30 PM EDT Ancillary Procedure [facility] - [address] [place] [address] 10/10/2024 Lab [facility] [address] [place] [address] Lauren Fofana MD Atrial fibrillation, unspecified type ([facility]/HCC) 10/03/2024 Lab [facility] [address] [place] [address] Lauren Fofana MD Atrial fibrillation, unspecified type (CMS/HCC) 09/26/2024 Lab [facility] [address] [place] [address] Lauren Fofana MD Atrial fibrillation, unspecified type (CMS/HCC) 09/19/[address] [facility] [address] [facility] [address] [place] [address] Lauren Fofana MD Atrial fibrillation, unspecified type (CMS/HCC) 09/17/2024 10:20 AM EDT Ancillary Procedure [facility] - [address] [place] [address] 09/16/2024 Anticoagulation - Warfarin Visit [facility] [address] [place] [address] Lauren Fofana MD Atrial fibrillation, unspecified type (CMS/HCC) (Primary Dx) 09/16/2024 Telephone [facility] [address] [place] [address] Lauren Fofana MD 09/04/2024 7:00 AM EST Ancillary Procedure [facility] - [address] [place] [address] Ischemic cardiomyopathy 08/26/2024 9:00 AM EST Ancillary Procedure [facility] - [address] [place] [address] Encounter for adjustment or management of cardiac device 08/19/2024 Anticoagulation - Warfarin Visit [facility] - [address] [place] [address] Steve Pickard MD Atrial fibrillation, unspecified type (CMS/HCC) (Primary Dx) 08/12/2024 1:20 PM EST Ancillary Procedure [facility] - [address] [place] [address] 08/07/2024 Anticoagulation - Warfarin Visit [facility] Cardiology [facility] [address] [place] [address] Lauren Fofana MD Atrial fibrillation, unspecified type (CMS/HCC) (Primary Dx) 08/06/2024 Telephone [facility] [address] [place] [address] Lauren Fofana MD Med Refill 07/31/2024 Anticoagulation - Warfarin Visit [facility] [address] [facility] [address] [place] [address] Lauren Fofana MD Atrial fibrillation, unspecified type (CMS/HCC) (Primary Dx) 07/29/2024 2:00 PM EST Office Visit [facility] [address] [place] [address] Lauren Fofana MD Atrial fibrillation, unspecified type (CMS/HCC) (Primary Dx); Coronary artery disease involving [place] river band coronary artery of [place] heart without angina pectoris; History of aortic valve replacement; HFrEF (heart failure with reduced ejection fraction) (CMS/HCC); 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 07/24/2024 Anticoagulation - Warfarin Visit [facility] [address] [place] [address] Lauren Fofana MD Atrial fibrillation, unspecified type (CMS/HCC) (Primary Dx) 07/17/2024 Anticoagulation - Warfarin Visit [facility] [address] [place] [address] Lauren Fofana MD Atrial fibrillation, [...] Description 01/27/2025 8:50 AM EDT Office Visit [facility] [address] [place] [address] [address] [place] [address] Lauren Fofana MD [address] [place] [address] [address] [place] [address] 06/17/2025 9:00 AM EST Office Visit [facility] Hematology Oncology [address] [place] [address] Max Butcher MD [address] [place] [address] 08/26/2025 9:00 AM EST Ancillary Procedure [facility] - [facility] [address] [facility] [address] [place] [address] Health Maintenance Due Date Last Done Comments Diabetes: Annual GFR (Glomerular Filtration Rate) 1950 Diabetes: Annual Foot Exam 1960 Diabetes: Annual Retina Eye Exam 1960 Pneumococcal Vaccine: 50+ Years (1 of 2 - PCV) 1969 Zoster Vaccines (1 of 2) 1969 RSV Immunization Adult Patients (1 - Risk 60-74 years 1-dose series) [...] 05/23/2022, 10/18/2021, Additional history exists Influenza Vaccine (Season Ended) 2025 04/13/2023, 06/08/2022 Cholesterol Screening (Lipid Panel) 07/31/2029 07/31/2024 DTaP,Tdap,and [...] age to complete this topic Meningococcal B Vaccine Aged Out No l onger eligible based on patient's age to complete this topic RSV Immunization Patients Under 20 months Aged Out No longer eligible based on patient's age to complete this topic Varicella Vaccines Aged Out No longer eligible based on patient's age to complete this topic Medical Devices Implanted Type Area Oil Agent Device Identifier Shelf Expiration Date Model / Serial / Lot Abbt-Stju 3357-40q Unify Assura(Tm) [id number] Implanted:01/06 by Steve Pickard MD (Quantity not on file) Cardiac WATER PUMP OPERATOR-D ICD Left: Chest [facility] 3357-40Q UNIFY ASSURA(TM ) / [id number] / Abbt-Stju Unify Assura 3357-40q [id number] Implanted:01/06 (Quantity not on file) Cardiac WATER PUMP OPERATOR-D ICD [facility] UNIFY ASSURA 3357-40Q / [id number] / Procedures Procedure Name Priority Date/Time Associated Diagnosis Comments CARDIAC DEVICE CHECK- REMOTE- MURJ Routine 10/11/2024 12:54 AM EDT CARDIAC DEVICE CHECK- REMOTE- MURJ Routine 10/10/2024 11:23 PM EDT CARDIAC DEVICE CHECK- REMOTE- MURJ Routine 10/10/2024 8:14 PM EDT CARDIAC DEVICE CHECK- REMOTE- MURJ Routine 10/10/2024 3:27 PM EDT CARDIAC DEVICE CHECK- REMOTE- MURJ Routine 09/17/2024 10:18 AM EDT PROTHROMBIN TIME WITH INR Routine 09/16/2024 11:22 [...] AUTO DIFFERENTIAL Routine 07/17/2024 12:14 PM EST from Last 3 Months Results * Cardiac device check - Remote- MURJ (10/11/2024 12:54 AM EDT) Only the most recent of6 resultswithin the time period is included. Date Time Interrogation Session [id number] CV DEVICE CHECK Type Interrogation Session Remote Scheduled CV DEVICE CHECK Implantable Pulse Generator Oil Agent St.Oneal CV DEVICE CHECK Implantable Pulse Generator Type WATER PUMP OPERATOR-D CV DEVICE CHECK Implantable Pulse Generator Model 3357-40Q Conduit() CV DEVICE CHECK Implantable Pulse Generator Serial Number [id number] CV DEVICE CHECK Implantable Pulse Generator Implant Date 20180117 CV DEVICE CHECK Battery Remaining Percentage 24.00 CV DEVICE CHECK Battery Remaining Longevity 18.0 CV DEVICE CHECK Battery Voltage 2.800 CV D EVICE CHECK Battery LUNCHEONETTE OPERATOR Trigger 2.590 CV DEVICE CHECK Battery Status Middle of Service CV DEVICE CHECK Capacitor Charge Time 9.300 CV DEVICE CHECK Tashi Statistic RA Percent Paced 18.00 CV DEVICE CHECK Tashi Statistic RV Percent Paced 96.00 CV DEVICE CHECK WATER PUMP OPERATOR Statistic WATER PUMP OPERATOR Percent Paced 96.00 CV DEVICE CHECK Atrial Tachy Statistic AT/AF [place] Percent 1.00 CV DEVICE CHECK Lead Channel Sensing Intrinsic Amplitude 4.600 CV DEVICE CHECK Lead Channel Setting Sensing Sensitivity 0.30 CV DEVICE CHECK Lead Channel Impedance Value 300 CV DEVICE CHECK Lead Channel Pacing Threshold Amplitude 0.625 CV DEVICE CHECK Lead Channel Pacing Threshold Pulse Width 0.5 CV DEVICE CHECK Lead Channel RA Pacing Threshold Date 2024-01-26 CV DEVICE CHECK Lead Channel Setting Pacing Amplitude 2.000 CV DEVICE CHECK Lead Channel Setting Pacing Pulse Width 0.5 CV DEVICE CHECK Lead Channel Sensing Intrinsic Amplitude 12.000 CV DEVICE CHECK Lead Channel Setting Sensing Sensitivity 0.50 CV DEVICE CHECK Lead Channel Impedance Value 530 CV DEVICE CHECK Lead Channel Pacing Threshold Amplitude 0.875 CV DEVICE CHECK Lead Channel Pacing Threshold Pulse Width 0.5 CV DEVICE CHECK Lead Channel RV Pacing Threshold Date 2024-01-26 CV DEVICE CHECK Lead Channel Setting Pacing Amplitude 2.000 CV DEVICE CHECK Lead Channel Setting Pacing Pulse Width 0.5 CV DEVICE CHECK Lead Channel Impedance Value 300 CV DEVICE CHECK Lead Channel Pacing Threshold Amplitude 1.125 CV DEVICE CHECK Lead Channel Pacing Threshold Pulse Width 0.5 CV DEVICE CHECK Lead Channel Pacing Threshold Date 2024-01-26 CV DEVICE CHECK Lead Channel Setting Pacing Amplitude 2.125 CV DEVICE CHECK Lead Channel Setting Pacing Pulse Width 0.5 CV DEVICE CHECK Tashi Setting Mode (NBG Code) DDD CV DEVICE CHECK Ventricular chambers paced during WATER PUMP OPERATOR pacing. BiV CV DEVICE CHECK Tashi Setting Lower Rate Limit 70 CV DEVICE CHECK Tashi Setting AT Mode Switch Rate 180 CV DEVICE CHECK Tashi Setting Maximum Tracking Rate 120 CV DEVICE CHECK Tashi Setting Maximum Sensor Rate 120 CV DEVICE CHECK Tashi Setting PAV Delay 150 CV DEVICE CHECK Tashi Setting JOHN Delay 120 CV DEVICE CHECK WATER PUMP OPERATOR LV-RV Delay 20 CV D EVICE CHECK Therapy Statistic Recent Shocks Delivered 0 CV DEVICE CHECK Therapy Statistic Recent Shocks Aborted 0 CV DEVICE CHECK Therapy Statistic Recent ATP Delivered 0 CV DEVICE CHECK Shock Measured Impedance 48 CV DEVICE CHECK Zone Setting Type Category [...] Anatomical Region Laterality Modality Device Interroga tion 01/26/2024 12:5 1 AM EDT Impressions 02/18/2024 12:08 AM EDT Heart Failure Diagnostic: Stable * Heart failure diagnostics assessed through the device * Status: Stable * No overt HF present Narrative Procedure Note Steve Pickard MD - 10/11/2024 IMPRESSION: Heart Failure Diagnostic: Stable * Heart failure diagnostics assessed through the device * Status: Stable * No overt HF present Steve Pickard MD CV IMPLANTABLE CARDIAC DEV ICE PROCEDURES Final Result * (ABNORMAL) CBC auto differential (09/16/2024 11:22 AM EDT) Only the most recent of6 resultswithin the time period is included. WBC 9.1 4.0 - 11.0 K/MM3 [facility] [...] 12:07 PM EDT Performed at: ??01 - [address] ??[id number] Securities Supervisor: Taco Pat MD, Phone: ??[phone] us Steve Pickard MD LAB BLOOD ORDERABLES Final Result Performing Organization Address [facility] de Phone Number [facility] 1 * (ABNORMAL) Prothrombin time with INR (09/16/2024 11:22 AM EDT) Only the most recent of6 resultswithin the time period is included. Pathologist [facility] International Normalized Ratio (INR) 2.6(H) 0.9 - 1.1 [facility] 1 Prothrombin Time 24.6(H) 9.2 - 11.4 SEC [facility] 1 09/16/2024 11:2 2 AM EDT 09/16/2024 Narrative [facility] 1 - 09/16/2024 12:07 PM EDT Performed at: ??01 - [address] ??[id number] Securities Supervisor: Taco Pat MD, Phone: ??[phone] us Steve Pickard MD LAB BLOOD ORDERABLES Final Result Performing Organization Address [facility] Co de Phone Number [facility] 1 * (ABNORMAL) TRANSTHORACIC ECHOCARDIOGRAM (TTE) COMPLETE W/ CONTRAST (09/04/2024 7:51 AM EST) Left Atrium Minor [place] 6.3 cm CV PACS Left Atrium Major [place] 5.9 cm CV PACS LA Area Sys [...] Gradient 3 mmHg CV PACS MV Deceleration [facility] 4.8 m/s2 CV PACS E Wave Deceleration [...] t * CARDIAC DEVICE CHECK- [facility] (08/26/2024 9:03 AM EST) Date Time Interrogation Session [id number] CV DEVICE CHECK Implantable Pulse Generator Oil Agent St.Oneal CV DEVICE CHECK Implantable Pulse Generator Type WATER PUMP OPERATOR-D CV DEVICE CHECK Implantable Pulse Generator Model Unify Assura 3357-40Q CV DEVICE CHECK Implantable Pulse Generator Serial Number [id number] CV DEVICE CHECK Implantable Pulse Generator Implant Date 20180117 CV DEVICE CHECK Battery Status Middle of Service CV DEVICE CHECK Tashi Statistic RA Percent Paced 18.00 CV DEVICE CHECK Tashi Statistic RV Percent Paced 96.00 CV DEVICE CHECK WATER PUMP OPERATOR Statistic WATER PUMP OPERATOR Percent Paced 96.00 CV DEVICE CHECK Lead [...] CV DEVICE CHECK Ventricular chambers paced during WATER PUMP OPERATOR pacing. LV -> RV CV DEVICE CHECK Tashi Setting Lower Rate Limit 70 CV DEVICE CHECK Tashi Setting AT Mode Switch Rate 180 CV DEVICE CHECK Tashi Setting Maximum Tracking Rate 120 CV DEVICE CHECK Tasih Setting Maximum Sensor Rate 120 CV DEVICE CHECK Tashi Setting PAV Delay 150 CV DEVICE CHECK Tashi Setting JOHN Delay 120 CV DEVICE CHECK WATER PUMP OPERATOR LV-RV Delay 20 CV D EVICE CHECK [...] CAR DIAC DEVICE PROCEDURES Final Result * (ABNORMAL) TSH reflex to free T4 (07/31/2024 8:11 AM EST) Thyroid Stimulating Hormone (TSH) 11.000(H) 0.450 - 4.500 uIU/mL [facility] 1 07/31/2024 8:11 AM EST 07/31/2024 Narrative [facility] 1 - 08/01/2024 6:07 AM EST Performed at: ??01 - [facility] [address] ??[id number] Securities Supervisor: Kate Gann MD, Phone: ??[phone] Lauren Fofana MD LAB BLOOD ORDERABLES Final Res ult [facility] 1 * Thyroxine free (07/31/2024 8:11 AM EST) T4 (Thyroxine) Free (Direct) 1.00 0.82 - 1.77 ng/dL [facility] 1 07/31/2024 8:11 AM EST 07/31/2024 Narrative [facility] 1 - 08/01/2024 6:07 AM EST Performed at: ??01 - [facility] [address] ??[id number] Securities Supervisor: Kate Gann MD, Phone: ??[phone] us Lauren Fofana MD LAB BLOOD ORDERABLES [...] - 08/01/2024 4:06 AM EST Performed at: ?? - [facility] [address] ??[id number] Securities Supervisor: Kate Gann MD, Phone: ??[phone] Lauren Fofana MD LAB BLOOD ORDERABLES Final Res ult Performing Organization Address [facility] de Phone Number [facility] 1 * Hepatic function panel (07/31/2024 8:11 AM EST) Protein Total 6.3 6.0 - 8.5 g/dL [...] AM EST Performed at: ??01 - [facility] [address] ??[id number] Securities Supervisor: Kate Gann MD, Phone: ??[phone] Lauren Fofana MD LAB BLOOD ORDERABLES Final Res ult Performing Organization Address [facility] de Phone Number [facility] 1 * ECG 12 lead (07/29/2024 2:11 PM EST) Ventricular Rate ECG 70 BPM GEMUSE Atrial Rate 70 BPM GEMUSE P-R Interval 90 ms GEMUSE QRS Duration 198 ms GEMUSE Q-T Interval 528 ms GEMUSE QTc 570 ms GEMUSE P Wave [place] 58 degrees GEMUSE R [place] -90 degrees GEMUSE T [place] 103 degrees GEMUSE ECG Interpretation Atrial-sensed ventricular-pa [...] GEMUSE from Last 3 Months Insurance MEDICARE [facility] Care Teams Corn Shucker Relationship Specialty Start Date End Date Noreen Sumner MD [address] [place] [address] PCP - General Internal Medicine 03/17/21
--- OUTSIDE RECORDS SUMMARY | 2024-10-14 08:10 | XMS_ITS | Encounter Summary ---
Author Organization [facility] Address [address] [place] [address] Care Team Providers Care Event Specialist Food Demonstrator Name Role Phone Noreen Sumner MD Primary Care Provider [phone] Encounter Details Date Type Department Care Team (Late st Contact Info) Description 10/11/2024 12:55 AM EDT Ancillary Procedure [facility] Cardiology [facility] - [facility] [address] [facility] [address] [place] [address] Arrived Social History Tobacco Use Types Packs/Day Years [...] Description 01/27/2025 8:50 AM EDT Office Visit [facility] Cardiology [facility] - [address] [place] [address] Sergei Fofana MD [address] [place] [address] [address] [place] [address] 06/17/2025 9:00 AM EST Office Visit [facility] Hematology Oncology [address] [place] [address] Max Butcher MD [address] [place] [address] 08/26/2025 9:00 AM EST Ancillary Procedure [facility] - [address] [place] [address] documented as of this encounter Procedures Procedure Name Priority Date/Time Associated Diagnosis Comments CARDIAC DEVICE CHECK- REMOTE- MURJ Routine 10/11/2024 12:54 AM EDT documented in this encounter Results * Cardiac device check - Remote- MURJ (10/11/2024 12:54 AM EDT) Date Time Interrogation Session [id number] CV DEVICE CHECK Type Interrogation Session Remote Scheduled CV DEVICE CHECK Implantable Pulse Generator Application Counselor St.Oneal CV DEVICE CHECK Implantable Pulse Generator Type MANUFACTURING OPERATOR-D CV DEVICE CHECK Implantable Pulse Generator Model 3357-40Q Gushcloud() CV DEVICE CHECK Implantable Pulse Generator Serial Number [id number] CV DEVICE CHECK Implantable Pulse Generator Implant Date 20180117 CV DEVICE CHECK Battery Remaining Percentage 24.00 CV DEVICE CHECK Battery Remaining Longevity 18.0 CV DEVICE CHECK Battery Voltage 2.800 CV D EVICE CHECK Battery FURNACE COOLER Trigger 2.590 CV DEVICE CHECK Battery Status Middle of Service CV DEVICE CHECK Capacitor Charge Time 9.300 CV DEVICE CHECK Tashi Statistic RA Percent Paced 18.00 CV DEVICE CHECK Tashi Statistic RV Percent Paced 96.00 CV DEVICE CHECK MANUFACTURING OPERATOR Statistic MANUFACTURING OPERATOR Percent Paced 96.00 CV DEVICE CHECK Atrial Tachy Statistic AT/AF [place] Percent 1.00 CV DEVICE CHECK Lead Channel [...] CV DEVICE CHECK Ventricular chambers paced during MANUFACTURING OPERATOR pacing. BiV CV DEVICE CHECK Tashi Setting Lower Rate Limit 70 CV DEVICE CHECK Tashi Setting AT Mode Switch Rate 180 CV DEVICE CHECK Tashi Setting Maximum Tracking Rate 120 CV DEVICE CHECK Tashi Setting Maximum Sensor Rate 120 CV DEVICE CHECK Tashi Setting PAV Delay 150 CV DEVICE CHECK Tashi Setting JOHN Delay 120 CV DEVICE CHECK MANUFACTURING OPERATOR LV-RV Delay 20 CV D EVICE [...] on filedocumented in this encounter Care Teams Event Specialist Food Demonstrator Relationship Specialty Start Date End Date Noreen Sumner MD [address] [place] [address] PCP - General Internal Medicine 03/17/21 documented as of this encounter
--- OUTSIDE RECORDS SUMMARY | 2024-10-14 08:10 | XMS_ITS | Clinical Summary ---
Author Organization [facility] Address [address] [facility] [address] [place] [address] Phone Care Team Providers Care Library Circulation Technician Name Role Phone Noreen Sumner MD Primary Care Provider [phone] Allergies No known active allergies Medications omega-3 [...] disease 01/01/2023 Atherosclerotic heart diseas e of [place] coronary artery without angina pectoris 07/17/2022 Body [...] Diabetes: Visual Foot Exam 10/04/2021 Influenza Vaccine (Season Ended) 2025 06/08/2022, 06/08/2022 Hepatitis B Vaccine Aged Out No longe r eligible based on patient's age to complete this topic Insurance MEDICARE [facility] MEDICARE Care Teams Library Circulation Technician Relationship Specialty Start Date End Date Noreen Sumner MD [address] [place] [address] PCP - General Internal Medicine 05/17/21
== END 2024-10-14 08:03 | disposition home or self-care (01) ==
LOC: HO.BBR 08:02
PROVIDERS: PCP Hospitalist; Visit Provider Internal Medicine Hematology & Oncology
DX: D45 Polycythemia vera (principal)
CPT/HCPCS: 85018; 99195

== ENCOUNTER 2024-10-16 10:26 | Outpatient (AMB) | payer MEDICARE, OTHER, SELFPAY ==
[2024-10-16 10:32] VITALS: BP 100/60; PULSE 74; O2SAT 98; BMI 29.1
--- NOTE | 2024-10-16 10:32 | HO.NEPHOV_ITS ---
Vital Signs 10/16/24 10:32 Height 5 ft 8 in Weight 191 lb 4 oz BMI 29.1 BP 100/60 Blood Pressure Location Lt brachial Position Sitting Pulse 74 Pulse Source Pulse Oximeter Pulse Oximetry (%) 98 Oxygen Delivery Method Room Air Intake Visit Reasons: 1mn follow-up No labs Protocol Manager Required: No Accompanied by: Self / Same As Patient Allergies No Known Allergies Allergy (Verified 10/16/24 10:36) Do you need a note to return to daycare/school/sports/work: No HPI Comments Details: Chadwick was seen in follow-up of his chronic kidney disease and hypertension. His blood sugar control is better. His blood pressure has been at goal. He denies any chest pain, shortness of breath, proximal nocturnal dyspnea, orthopnea or pedal edema. He has no urinary symptoms. He is compliant with his medications. He avoids nonsteroidal anti-inflammatory medications. His serum creatinine is stable. He recently had acute gout on his left foot and was finding it difficult to ambulate. He has not been taking any NSAID's. [facility] Medical History Chronic kidney disease, stage 3a Hypertension Surgical History History of cataract surgery History of appendectomy H/O aortic valve replacement Hx of CABG Family History Mother Aneurysm Father Heart attack Social History Alcohol intake: never Patient Tobacco Use Status: Never used Tobacco Review of Systems Const All systems reviewed & are unremarkable except as noted in HPI and below Physical Exam Vital Signs: BMI result Body Mass Index 29.1 Const General: comfortable and no acute distress Orientation/consciousness: patient oriented x3 HEENT Head: Yes normocephalic Mouth: Normal oral and palatal mucosa present Eyes EOM: EOMs intact bilaterally Neck Neck: Yes supple Resp Auscultation: clear to auscultation bilaterally Cardio Jugular venous distension: no JVD Rate: regular rate Heart sounds: Murmur heart sound present GI Palpation (GI): Soft to palpation Auscultation: normal bowel sounds Skin General skin exam: no rashes or lesions noted Neuro General: patient oriented x3 and moves all extremities Results Reviewed Nephrology Results: No Data to Display Assessment & Plan Assessment & Plan (1) Gout attack: Code(s): M10.9 - Gout, unspecified Category: Medical Qualifiers: Gout etiology: idiopathic Gout site: foot Laterality: left Qualified Code(s): 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, left ankle and foot (2) Diabetic nephropathy: Code(s): E11.21 - Type 2 diabetes mellitus with diabetic nephropathy Category: Medical Qualifiers: Diabetes mellitus type: type 2 Qualified Code(s): E11.21 - Type 2 diabetes mellitus with diabetic nephropathy (3) Hypertension: Code(s): I10 - Essential (primary) hypertension Category: Medical Qualifiers: Hypertension type: primary hypertension Qualified Code(s): I10 - Essential (primary) hypertension (4) CKD (chronic kidney disease) stage 3, GFR 30-59 ml/min: Code(s): N18.30 - Chronic kidney disease, stage 3 unspecified Category: Medical Qualifiers: Chronic kidney disease stage 3 subtype: stage 3a (GFR 45-59) Qualified Code(s): N18.31 - Chronic kidney disease, stage 3a Armand Genao has 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 His serum creatinine is stable. He is on Entresto and Jardiance. He had a F/U ECHO. WE may have to hold his Entresto if his creatinine rises. He does not have any worsening proteinuria. His blood pressure is at goal at home. He avoids nonsteroidal anti- inflammatories. He maintains good hydration. He is on statins. I gave Prednsione PO for a week at the last visit which has improved his acute gout . I started him on Allopurinol 100 mg daily. He is aware that he needs to monitor his blood sugar closely & adjust insulin during that time. I did not make any other medication changes today. Answered all questions. 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, left ankle and foot, N18.31 - Chronic kidney disease, stage 3a Creatinine 3 Months E11.21 - Type 2 diabetes mellitus with diabetic nephropathy, I10 - Essential (primary) hypertension, 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, left ankle and foot, N18.31 - Chronic kidney disease, stage 3a Medications: New allopurinol 100 mg PO DAILY 90 tabs 3RF Coding Level of Care Code Est Pt Level 4 (51580) Diagnoses Acute idiopathic gout of left foot M10.072 Gout etiology: idiopathic Gout site: foot Laterality: left Diabetic nephropathy associated with type 2 diabetes mellitus E11.21 Diabetes mellitus type: type 2 Primary hypertension I10 Hypertension type: primary hypertension Stage 3a chronic kidney disease N18.31 Chronic kidney disease stage 3 subtype: stage 3a (GFR 45-59)
--- OUTSIDE RECORDS SUMMARY | 2024-10-16 12:22 | XMS_ITS | Encounter Summary ---
Author Organization [facility] Address [address] [place] [address] Care Team Providers Care Timber Mill Worker Name Role Phone Noreen Sumner MD Primary Care Provider [phone] Encounter Details Date Type Department Care Team (Late st Contact Info) Description 10/11/2024 12:55 AM EDT Ancillary Procedure [facility] - [facility] [address] [facility] [address] [place] [phone] Social History Tobacco Use Types Packs/Day Years [...] 01/27/2025 8:50 AM EDT Office Visit [facility] - [address] [place] [phone] Sergei Fofana MD [address] [place] [address] DRIVE [address] [place] [address] 06/17/2025 9:00 AM EST Office Visit [facility] Hematology Oncology [address] [place] [phone] Max Butcher MD [address] [place] [address] 08/26/2025 9:00 AM EST Ancillary Procedure [facility] - [address] [place] [phone] documented as of this encounter Procedures Procedure Name Priority Date/Time Associated Diagnosis Comments CARDIAC DEVICE CHECK- REMOTE- MURJ Routine 10/11/2024 12:54 AM EDT documented in this encounter Results * Cardiac device check - Remote- MURJ (10/11/2024 12:54 AM EDT) Date Time Interrogation Session [id number] CV DEVICE CHECK Type Interrogation Session Remote Scheduled CV DEVICE CHECK Implantable Pulse Generator Assorter [employer]One[employer] CV DEVICE CHECK Implantable Pulse Generator Type SHAREBROKER-D CV DEVICE CHECK Implantable Pulse Generator Model [id number] Go Long Wireless() CV DEVICE CHECK Implantable Pulse Generator Serial Number [id number] CV DEVICE CHECK Implantable Pulse Generator Implant Date 20180117 CV DEVICE CHECK Battery Remaining Percentage 24.00 CV DEVICE CHECK Battery Remaining Longevity 18.0 CV DEVICE CHECK Battery Voltage 2.800 CV D EVICE CHECK Battery ENERGY INFRASTRUCTURE ENGINEER Trigger 2.590 CV DEVICE CHECK Battery Status Middle of Service CV DEVICE CHECK Capacitor Charge Time 9.300 CV DEVICE CHECK Tashi Statistic RA Percent Paced 18.00 CV DEVICE CHECK Tashi Statistic RV Percent Paced 96.00 CV DEVICE CHECK SHAREBROKER Statistic SHAREBROKER Percent Paced 96.00 CV DEVICE CHECK Atrial Tachy Statistic AT/AF [place] Percent 1.00 CV DEVICE CHECK Lead Channel [...] CV DEVICE CHECK Ventricular chambers paced during SHAREBROKER pacing. BiV CV DEVICE CHECK Tashi Setting Lower Rate Limit 70 CV DEVICE CHECK Tashi Setting AT Mode Switch Rate 180 CV DEVICE CHECK Tashi Setting Maximum Tracking Rate 120 CV DEVICE CHECK Tashi Setting Maximum Sensor Rate 120 CV DEVICE CHECK Tashi Setting PAV Delay 150 CV DEVICE CHECK Tashi Setting JOHN Delay 120 CV DEVICE CHECK SHAREBROKER LV-RV Delay 20 CV D EVICE CHECK [...] on filedocumented in this encounter Care Teams Timber [employer] Worker Relationship Specialty Start Date End Date Noreen Sumner MD [address] [place] [address] PCP - General Internal Medicine 03/17/21 documented as of this encounter
--- OUTSIDE RECORDS SUMMARY | 2024-10-16 12:22 | XMS_ITS | Encounter Summary ---
Author Organization [facility] Address [address] [place] [address] Care Team Providers Care Addiction Medicine Physician Name Role Phone Noreen Sumner MD Primary Care Provider [phone] Encounter Details Date Type Department Care Team (Late st Contact Info) Description 10/10/2024 Lab [facility] [address] [place] [address] Sergie Fofana MD [address] [place] [address] DRIVE [address] [place], [place] [phone] Atrial fibrillation, unspecified type (CMS/HCC V24, CMS/HCC V28) Social History Tobacco Use Types Packs/Day Years [...] Description 01/27/2025 8:50 AM EDT Office Visit [facility] [address] [place] [address] Sergei Fofana MD [address] [place] [address] [address]IVE [address] [place] [address] 06/17/2025 9:00 AM EST Office Visit [facility] Hematology Oncology [address] [place] [phone] Max Butcher MD [address] [place] [address] 08/26/2025 9:00 AM EST Ancillary Procedure [facility] - [address] [place] [phone] documented as of this encounter Procedures Procedure Name Priority Date/Time Associated Diagnosis Comments PROTHROMBIN TIME WITH INR Routine 10/16/2024 9:37 AM EDT Atrial fibrillation, unspecified type (CMS/HCC V24, CMS/HCC V28) HEMATOCRIT Routine 10/16/2024 9:37 AM EDT documented in this encounter Results * Hematocrit (10/16/2024 9:37 AM EDT) [facility] Hematocrit 48.7 40.5 - 50.0 % [facility] 1 10/16/2024 9:37 AM EDT 10/16/2024 Narrative [facility] 1 - 10/16/2024 10:35 AM EDT Performed at: ??[address] - [address] ??[id number] Herd Tester: Taco Pat MD, Phone: ??[phone] us Sergei Fofana MD LAB BLOOD ORDERABLES Final Res ult [facility] 1 * (ABNORMAL) Prothrombin time with INR (10/16/2024 9:37 AM EDT) Pathologist [facility] International Normalized Ratio (INR) 1.7(H) 0.9 - 1.1 [facility] 1 Prothrombin Time 17.3(H) 9.2 - 11.4 SEC [facility] 1 Blood Venous blood specimen / Unknown 10/16/2024 9:37 AM EDT 10/16/2024 Narrative [facility] 1 - 10/16/2024 10:35 AM EDT Performed at: ??[address] - [address] ??[id number] Herd Tester: Taco Pat MD, Phone: ??[phone] us Sergei Fofana MD LAB BLOOD ORDERABLES Final Res ult [facility] 1 documented in this encounter Visit Diagnoses Diagnosis Atrial fibrillation, unspecified type (CMS/HCC V24, CMS/HCC V28) Encounter for adjustment or management of cardiac device documented in this encounter Care Teams Addiction Medicine Physician Relationship Specialty Start Date End Date Noreen Sumner MD [address] [place] [phone] PCP - General Internal Medicine 03/17/21 documented as of this encounter
--- OUTSIDE RECORDS SUMMARY | 2024-10-16 12:22 | XMS_ITS | Clinical Summary ---
Author Organization [facility] Address [address] [place] [address] Phone Care Team Providers Care Rack Maker Name Role Phone Noreen Sumner MD Primary Care Provider [phone] Allergies No known active allergies Medications atorvastatin [...] (PACERONE) 100 mg tabletIndications :Paroxysmal atrial fibrillation (CMS/HCC V24, CMS/HCC V28),Essential (primary) hypertension Take 1 tablet (100 mg total) by mouth 1 (one) time each day. 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 HFrEF (heart failure with re duced ejection fraction) (CMS/HCC V24, CMS/HCC V28) 07/29/2024 Assessment & Plan (07/29/2024 5:18 PM [...] based on evaluation no arrhythmias documented Afib (CMS/HCC V24, CMS/HCC V28) 05/22/2024 Assessment & Plan (07/29/2024 5:18 PM [...] Encounters Date Type Department Care Team Description 10/16/2024 Anticoagulation - Warfarin Visit [facility] Cardiology [address] [place] [address] Lauren Fofana MD Atrial fibrillation, unspecified type (CMS/HCC V24, CMS/HCC V28) (Primary Dx) 10/14/2024 1:20 PM EDT Ancillary Procedure [facility] [address] [place] [address] Arrived 10/11/2024 12:55 AM EDT Ancillary Procedure [facility] [address] [place] [address] 10/10/2024 11:25 PM EDT Ancillary Procedure [facility] - [address] [place] [address] 10/10/2024 8:15 PM EDT Ancillary Procedure [facility] - [address] [place] [address] 10/10/2024 3:30 PM EDT Ancillary Procedure [facility] - [address] [place] [address] 10/10/2024 Lab [facility] [address] [place] [phone] Lauren Fofana MD Atrial fibrillation, unspecified type (CMS/HCC V24, CMS/HCC V28) 10/03/2024 Lab [facility] [address] [place] [address] Lauren Fofana MD Atrial fibrillation, unspecified type (CMS/HCC V24, CMS/HCC V28) 09/26/2024 Lab [facility] [address] [place] [address] Lauren Fofana MD Atrial fibrillation, unspecified type (CMS/HCC V24, CMS/HCC V28) 09/19/2024 Lab [facility] [address] [place] [address] Lauren Fofana MD Atrial fibrillation, unspecified type (CMS/HCC V24, CMS/HCC V28) 09/17/2024 10:20 AM EDT Ancillary Procedure [facility] - [address] [place] [address] 09/16/2024 Anticoagulation - Warfarin Visit [facility] [address] [place] [address] Lauren Fofana MD Atrial fibrillation, unspecified type (CMS/HCC V24, CMS/HCC V28) (Primary Dx) 09/16/[address] [facility] [address] [place] [address] Lauren Fofana MD 09/04/2024 7:00 AM EST Ancillary Procedure [facility] - [address] [place] [address] Ischemic cardiomyopathy 08/26/2024 9:00 AM EST Ancillary Procedure [facility] - [address] [place] [address] Encounter for adjustment or management of cardiac device 08/19/2024 Anticoagulation - Warfarin Visit [facility] - [address] [place] [address] Steve Pickard MD Atrial fibrillation, unspecified type (CMS/HCC V24, CMS/HCC V28) (Primary Dx) 08/12/2024 1:20 PM EST Ancillary Procedure [facility] - [address] [place] [address] 08/07/2024 Anticoagulation - Warfarin Visit [facility] [address] [place] [address] Lauren Fofana MD Atrial fibrillation, unspecified type (CMS/HCC V24, CMS/HCC V28) (Primary Dx) 08/06/2024 Telephone [facility] [address] [place] [address] Lauren Fofana MD Med Refill 07/31/2024 Anticoagulation - Warfarin Visit [facility] [address] [place] [address] Lauren Fofana MD Atrial fibrillation, unspecified type (CMS/HCC V24, CMS/HCC V28) (Primary Dx) 07/29/2024 2:00 PM EST Office Visit [facility] [address] [place] [address] Lauren Fofana MD Atrial fibrillation, unspecified type (CMS/HCC V24, CMS/HCC V28) (Primary Dx); Coronary artery disease involving absentee-shawnee coronary artery of absentee-shawnee heart without angina pectoris; History of aortic valve replacement; HFrEF (heart failure with reduced ejection fraction) (CMS/HCC V24, CMS/HCC V28); 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 07/24/2024 Anticoagulation - Warfarin Visit [facility] [address] [place] [address] Lauren Fofana MD Atrial fibrillation, unspecified type ([facility] V24, [facility] V28) (Primary Dx) from Last 3 Months Surgical History Surgery Date Site/Laterality Comments CORONARY ARTERY BYPASS GRAFT PROCEDURE: HISTORICAL CABG CARDIAC SURGERY PROCEDURE: HISTORICAL HEART SURGERY(ASD,VSD,VALVES) CARDIAC CATHETERIZATION PROCEDURE: HISTORICAL CARDIAC CATH Medical History Medical History Date Comments Chronic ischemic heart disease D X: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 [place] [address] Lauren Fofana MD [address] [place] [address] DRIVE [address] [place] [address] 06/17/2025 9:00 AM EST Office Visit [facility] Hematology Oncology [address] [place] [address] Max Butcher MD [address] [place] [address] 08/26/2025 9:00 AM EST Ancillary Procedure [facility] - [facility] [address] [facility] [address] [place] [address] Health Maintenance Due Date Last Done Comments [...] this topic Medical Devices Implanted Type Area Life Skills Coach Device Identifier Shelf Expiration Date Model / Serial / Lot Abbt-Stju 3357-40q Unify Assura(Tm) [id number] Implanted:01/06 by Steve Pickard MD (Quantity not on file) Cardiac POSITIVE PRINTER OPERATOR-D ICD Left: Chest [facility] 3357-40Q UNIFY ASSURA(TM ) / [id number] / Abbt-Stju Unify Assura 3357-40q [id number] Implanted:01/06 (Quantity not on file) Cardiac POSITIVE PRINTER OPERATOR-D ICD [facility] UNIFY ASSURA 3357-40Q / [id number] / Procedures Procedure Name Priority Date/Time Associated Diagnosis Comments HEMATOCRIT Routine 10/16/2024 9:37 AM EDT PROTHROMBIN TIME WITH INR Routine 10/16/2024 9:37 AM EDT Atrial fibrillation, unspecified type (CMS/HCC V24, CMS/HCC V28) CARDIAC DEVICE CHECK- REMOTE- MURJ Routine 10/14/2024 1:19 PM EDT CARDIAC DEVICE CHECK- REMOTE- MURJ Routine 10/11/2024 [...] 2:11 PM EST Atrial fibrillation, unspecified type (CMS/HCC V24, CMS/HCC V28) PROTHROMBIN TIME WITH INR Routine 07/24/2024 9:11 AM EST CBC WITH AUTO DIFFERENTIAL Routine 07/24/2024 9:11 AM EST from Last 3 Months Results * (ABNORMAL) Prothrombin time with INR (10/16/2024 9:37 AM EDT) Only the most recent of6 resultswithin the time period is included. International Normalized Ratio (INR) 1.7(H) 0.9 - 1.1 [facility] 1 Prothrombin Time 17.3(H) 9.2 - 11.4 SEC [facility] 1 Blood Venous blood specimen / Unknown 10/16/2024 9:37 AM EDT 10/16/2024 Narrative [facility] 1 - 10/16/2024 10:35 AM EDT Performed at: [address] ??[id number] Twisting Press Operator: Taco Pat MD, Phone: ??[phone] us Lauren Fofana MD LAB BLOOD ORDERABLES Final Res ult [facility] * Hematocrit (10/16/2024 9:37 AM EDT) Hematocrit 48.7 40.5 - 50.0 % [facility] 1 10/16/2024 9:37 AM EDT 10/16/2024 Narrative [facility] 1 - 10/16/2024 10:35 AM EDT Performed at: [address] ??[id number] Twisting Press Operator: Taco Pat MD, Phone: ??[phone] us Lauren Fofana MD LAB BLOOD ORDERABLES Final Res ult Performing Organization Address [facility] Co de Phone Number [facility] * Cardiac device check - Remote- MURJ (10/14/2024 1:19 PM EDT) Only the most recent of7 resultswithin the time period is included. Date Time Interrogation Session [id number] CV DEVICE CHECK Type Interrogation Session Remote Scheduled CV DEVICE CHECK Implantable Pulse Generator Life Skills Coach [employer] CV DEVICE CHECK Implantable Pulse Generator Type POSITIVE PRINTER OPERATOR-D CV DEVICE CHECK Implantable Pulse Generator Model 3357-40Q Goal [employer]() CV DEVICE CHECK Implantable Pulse Generator Serial Number [id number] CV DEVICE CHECK Implantable Pulse Generator Implant Date 20180117 CV DEVICE CHECK Battery Remaining Percentage 20.00 CV DEVICE CHECK Battery Remaining Longevity 16.0 CV DEVICE CHECK Battery Voltage 2.780 CV D EVICE CHECK Battery LUMBER HANDLER Trigger 2.590 CV DEVICE CHECK Battery Status Middle of Service CV DEVICE CHECK Capacitor Charge Time 9.600 CV DEVICE CHECK Tashi Statistic RA Percent Paced 58.00 CV DEVICE CHECK Tashi Statistic RV Percent Paced 96.00 CV DEVICE CHECK POSITIVE PRINTER OPERATOR Statistic POSITIVE PRINTER OPERATOR Percent Paced 96.00 CV DEVICE CHECK Atrial Tachy Statistic AT/AF [facility] Percent 1.00 CV DEVICE CHECK Lead Channel Sensing Intrinsic Amplitude 5.000 CV DEVICE CHECK Lead Channel Setting Sensing Sensitivity 0.30 CV DEVICE CHECK Lead Channel Impedance Value 330 CV DEVICE CHECK Lead Channel Pacing Threshold Amplitude 0.875 CV DEVICE CHECK Lead Channel Pacing Threshold Pulse Width 0.5 CV DEVICE CHECK Lead Channel RA Pacing Threshold Date 2024-10-13 CV DEVICE CHECK Lead Channel Setting Pacing Amplitude 2.000 CV DEVICE CHECK Lead Channel Setting Pacing Pulse Width 0.5 CV DEVICE CHECK Lead Channel Sensing Intrinsic Amplitude 12.000 CV DEVICE CHECK Lead Channel Setting Sensing Sensitivity 0.50 CV DEVICE CHECK Lead Channel Impedance Value 580 CV DEVICE CHECK Lead Channel Pacing Threshold Amplitude 1.250 CV DEVICE CHECK Lead Channel Pacing Threshold Pulse Width 0.5 CV DEVICE CHECK Lead Channel RV Pacing Threshold Date 2024-10-13 CV DEVICE CHECK Lead Channel Setting Pacing Amplitude 2.250 CV DEVICE CHECK Lead Channel Setting Pacing Pulse Width 0.5 CV DEVICE CHECK Lead Channel Impedance Value 330 CV DEVICE CHECK Lead Channel Pacing Threshold Amplitude 1.125 CV DEVICE CHECK Lead Channel Pacing Threshold Pulse Width 0.5 CV DEVICE CHECK Lead Channel Pacing Threshold Date 2024-10-13 CV DEVICE CHECK Lead Channel Setting Pacing Amplitude 2.125 CV DEVICE CHECK Lead Channel Setting Pacing Pulse Width 0.5 CV DEVICE CHECK Tashi Setting Mode (NBG Code) DDD CV DEVICE CHECK Ventricular chambers paced during POSITIVE PRINTER OPERATOR pacing. BiV CV DEVICE CHECK Tashi Setting Lower Rate Limit 70 CV DEVICE CHECK Tashi Setting AT Mode Switch Rate 180 CV DEVICE CHECK Tashi Setting Maximum Tracking Rate 120 CV DEVICE CHECK Tashi Setting Maximum Sensor Rate 120 CV DEVICE CHECK Tashi Setting PAV Delay 150 CV DEVICE CHECK Tashi Setting JOHN Delay 120 CV DEVICE CHECK POSITIVE PRINTER OPERATOR LV-RV Delay 20 CV D EVICE CHECK Therapy Statistic Recent Shocks Delivered 0 CV DEVICE CHECK Therapy Statistic Recent Shocks Aborted 0 CV DEVICE CHECK Therapy Statistic Recent ATP Delivered 0 CV DEVICE CHECK Shock Measured Impedance 46 CV DEVICE CHECK Zone Setting Type Category [...] 3 CV DEVICE CHECK Date of Service 2024-12-31 CV DEVICE CHECK Anatomical Region Laterality Modality Device Interroga tion 10/13/2024 2:00 AM EDT Impressions 10/14/2024 12:16 PM EDT Heart Failure Diagnostic: Stable * Heart failure diagnostics assessed through the device * Status: Stable * No overt HF present Narrative Procedure Note Steve Pickard MD - 10/14/2024 IMPRESSION: Heart Failure Diagnostic: Stable * Heart failure diagnostics assessed through the device * Status: Stable * No overt HF present Steve Pickard MD CV IMPLANTABLE CARDIAC DEV ICE PROCEDURES Final Result * (ABNORMAL) CBC auto differential (09/16/2024 11:22 AM EDT) Only the most recent of5 resultswithin the time period is included. WBC [...] 12:07 PM EDT Performed at: ??[address] ??[id number] Twisting Press Operator: Taco Pat MD, Phone: ??[phone] us Steve Pickard MD LAB BLOOD ORDERABLES Final Result [facility] * (ABNORMAL) TRANSTHORACIC ECHOCARDIOGRAM (TTE) COMPLETE W/ CONTRAST (09/04/2024 7:51 AM EST) Left Atrium Minor [place] 6.3 cm CV PACS Left Atrium Major [place] 5.9 cm CV PACS LA Area Sys [...] Gradient 3 mmHg CV PACS MV Deceleration [place] 4.8 m/s2 CV PACS E Wave Deceleration [...] t * CARDIAC DEVICE CHECK- IN [facility] (08/26/2024 9:03 AM EST) Date Time Interrogation Session [id number] CV DEVICE CHECK Implantable Pulse Generator Life Skills Coach [employer] CV DEVICE CHECK Implantable Pulse Generator Type POSITIVE PRINTER OPERATOR-D CV DEVICE CHECK Implantable Pulse Generator Model Unify Assura 3357-40Q CV DEVICE CHECK Implantable Pulse Generator Serial Number [id number] CV DEVICE CHECK Implantable Pulse Generator Implant Date 20180117 CV DEVICE CHECK Battery Status Middle of Service CV DEVICE CHECK Tashi Statistic RA Percent Paced 18.00 CV DEVICE CHECK Tashi Statistic RV Percent Paced 96.00 CV DEVICE CHECK POSITIVE PRINTER OPERATOR Statistic POSITIVE PRINTER OPERATOR Percent Paced 96.00 CV DEVICE CHECK [...] CV DEVICE CHECK Ventricular chambers paced during POSITIVE PRINTER OPERATOR pacing. LV -> RV CV DEVICE CHECK Tashi Setting Lower Rate Limit 70 CV DEVICE CHECK Tashi Setting AT Mode Switch Rate 180 CV DEVICE CHECK Tashi Setting Maximum Tracking Rate 120 CV DEVICE CHECK Tashi Setting Maximum Sensor Rate 120 CV DEVICE CHECK Tashi Setting PAV Delay 150 CV DEVICE CHECK Tashi Setting JOHN Delay 120 CV DEVICE CHECK POSITIVE PRINTER OPERATOR LV-RV Delay 20 CV D EVICE [...] Status: Stable * No overt HF present Order Referral Cardiovascular CV IMPLANTABLE CAR DIAC DEVICE PROCEDURES Final Result * (ABNORMAL) TSH reflex to free T4 (07/31/2024 8:11 AM EST) Thyroid Stimulating Hormone (TSH) 11.000(H) 0.450 - 4.500 uIU/mL [facility] 1 07/31/2024 8:11 AM EST 07/31/2024 Narrative [facility] 1 - 08/01/2024 6:07 AM EST Performed at: ??01 - [facility] ??[id number] Twisting Press Operator: Kate Gann MD, Phone: ??[phone] Lauren Fofana MD LAB BLOOD ORDERABLES Final Res ult Performing Organization Address [facility] de Phone Number [facility] * Thyroxine free (07/31/2024 8:11 AM EST) Pathologist [facility] T4 (Thyroxine) Free (Direct) 1.00 0.82 - 1.77 ng/dL [facility] 1 07/31/2024 8:11 AM EST 07/31/2024 Narrative [facility] 1 - 08/01/2024 6:07 AM EST Performed at: ??01 - [facility] [address] ??[id number] Twisting Press Operator: Kate Gann MD, Phone: ??[phone] Lauren Fofana MD LAB BLOOD ORDERABLES Final Res ult Performing Organization Address [facility] Co de Phone Number [facility] * (ABNORMAL) Lipid panel with LDL and HDL ratio (07/31/2024 8:11 AM EST) Pathologist [facility] Cholesterol Total 102 100 - 199 mg/dL [...] AM EST Performed at: ??01 - [facility] [address] ??[id number] Twisting Press Operator: Kate Gann MD, Phone: ??[phone] us Lauren Fofana MD LAB BLOOD ORDERABLES Final Res ult [facility] * Hepatic function panel (07/31/2024 [...] AM EST Performed at: ??01 - [facility] [address] ??[id number] Twisting Press Operator: Kate Gann MD, Phone: ??[phone] us Lauren Fofana MD LAB BLOOD ORDERABLES Final Res ult [facility] * ECG 12 lead (07/29/2024 2:11 PM EST) Ventricular Rate ECG 70 BPM GEMUSE Atrial Rate 70 BPM GEMUSE P-R Interval 90 ms GEMUSE QRS Duration 198 ms GEMUSE Q-T Interval 528 ms GEMUSE QTc 570 ms GEMUSE P Wave [place] 58 degrees GEMUSE R [place] -90 degrees GEMUSE T [place] 103 degrees GEMUSE ECG Interpretation Atrial-sensed ventricular-pa [...] GEMUSE from Last 3 Months Insurance MEDICARE [facility] Care Teams Rack Maker Relationship Specialty Start Date End Date Noreen Sumner MD [address] [place] [phone] PCP - General Internal Medicine 03/17/21
--- OUTSIDE RECORDS SUMMARY | 2024-10-16 12:22 | XMS_ITS ---
Author Organization [facility] Address [address] [place] [address] Care Team Providers Care Shredding Machine Knife Changer Name Role Phone DIMITRY HUGHES Primary Care Provider Results Component Value Reference Range Notes Hemoglobin A1c Reviewed date:07/20/2024 07:20:32 PM Interpretation: Performing Lab:[facility], [address] [place] [address], Phone - [phone], Director - [facility] Notes/Report: Hemoglobin A1c 6.3 Reference Range: [place] Diabetes Association (ADA) Guidelines: <5.7: Decreased risk [...] Active Encounters Encounter Location Date Provider Diagnosis [address] [address] 05/26/2024 DIMITRY HUGHES Type 2 diabetes mellitus [...] Name:DIMITRY HUGHES , 02/09/2025 03:00:00 PM, [address] [address], [place], [address], Progress Notes * Chadwick CARDOSODOB:1950 (73 yo M)Acc No.[id number]:05/26/2024 Patient:?Chadwick CARDOSO :1950???Age:73 Y???Sex:Male Phone: Address:[address] [place] [address], [place] [address] * Refills? Start glipiZIDE ER Tablet Extended [...] true * Date:? Generated for Piter ly/Curtis/eTstanislavsmitting on:?10/16/2024 12:22 PM EDT
--- OUTSIDE RECORDS SUMMARY | 2024-10-16 12:22 | XMS_ITS | Clinical Summary ---
Author Organization [facility] Address [address] [id number] Care Team Providers Care Pantographer Name Role Phone Noreen Sumner MD Primary Care Provider [phone] Allergies No known active allergies Medications Medication [...] 100 UNIT/ML injection 32 units 0 Active [place]-3 Fatty Acids (Fish Oil) 1000 MG CAPS [...] age to complete this topic Care Teams Pantographer Relationship Specialty Start Date End Date Noreen Sumner MD [address] [place] [address] PCP - General Internal Medicine 10/25/21
--- OUTSIDE RECORDS SUMMARY | 2024-10-16 12:22 | XMS_ITS | Encounter Summary ---
Author Organization [facility] Address [address] [place] [address] Care Team Providers Care General Machine Operator Name Role Phone Nroeen Sumner MD Primary Care Provider [phone] Encounter Details Date Type Department Care Team (Latest Contact Info) Description 10/16/2024 Anticoagulation - Warfarin Visit [facility] Cardiology [facility] [address] [place] [phone] Sergei Fofana MD [address] [place] [address] [address] [place] [address] Atrial fibrillation, unspecified type (CMS/HCC V24, CMS/HCC V28) (Primary Dx) Social History Tobacco Use Types [...] Description 01/27/2025 8:50 AM EDT Office Visit [facility] [address] [place] [address] Sergei Fofana MD [address] [place] [address] [address]IVE [address] [place] [address] 06/17/2025 9:00 AM EST Office Visit [facility] Hematology Oncology [address] [place] [phone] Max Butcher MD [address] [place] [address] 08/26/2025 9:00 AM EST Ancillary Procedure [facility] [address] [place] [phone] documented as of this encounter Visit Diagnoses Diagnosis Atrial fibrillation, unspecified type (CMS/HCC V24, CMS/HCC V28)- Primary Encounter for adjustment or management of cardiac device documented in this encounter Care Teams General Machine Operator Relationship Specialty Start Date End Date Noreen Sumner MD [address] [place] [address] PCP - General Internal Medicine 03/17/21 documented as of this encounter
--- OUTSIDE RECORDS SUMMARY | 2024-10-16 12:22 | XMS_ITS | Encounter Summary ---
Author Organization [facility] Address [address] [place] [address] Care Team Providers Care Coding Spec Name Role Phone Noreen Sumner MD Primary Care Provider [phone] Encounter Details Date Type Department Care Team (Late st Contact Info) Description 10/14/2024 1:20 PM EDT Ancillary Procedure [facility] Cardiology [facility] - [facility] [address] [facility] [address] [place] [address] Arrived Social History Tobacco Use Types Packs/Day [...] Description 01/27/2025 8:50 AM EDT Office Visit [facility] Cardiology [facility] - [address] [place] [phone] Sergei Fofana MD [address] [place] [address] [address]IVE [address] [place] [address] 06/17/2025 9:00 AM EST Office Visit [facility] Hematology Oncology [address] [place] [address] Max Butcher MD [address] [place] [address] 08/26/2025 9:00 AM EST Ancillary Procedure [facility] [address] [place] [address] documented as of this encounter Procedures Procedure Name Priority Date/Time Associated Diagnosis Comments CARDIAC DEVICE CHECK- REMOTE- MURJ Routine 10/14/2024 1:19 PM EDT documented in this encounter Results * Cardiac device check - Remote- MURJ (10/14/2024 1:19 PM EDT) Date Time Interrogation Session [id number] CV DEVICE CHECK Type Interrogation Session Remote Scheduled CV DEVICE CHECK Implantable Pulse Generator State Pilot St.Oneal CV DEVICE CHECK Implantable Pulse Generator Type TOBACCO FLAVORER-D CV DEVICE CHECK Implantable Pulse Generator Model [id number] ScriptRock() CV DEVICE CHECK Implantable Pulse Generator Serial Number [id number] CV DEVICE CHECK Implantable Pulse Generator Implant Date 20180117 CV DEVICE CHECK Battery Remaining Percentage 20.00 CV DEVICE CHECK Battery Remaining Longevity 16.0 CV DEVICE CHECK Battery Voltage 2.780 CV D EVICE CHECK Battery FIBERGLASS BOAT FINISHER Trigger 2.590 CV DEVICE CHECK Battery Status Middle of Service CV DEVICE CHECK Capacitor Charge Time 9.600 CV DEVICE CHECK Tashi Statistic RA Percent Paced 58.00 CV DEVICE CHECK Tashi Statistic RV Percent Paced 96.00 CV DEVICE CHECK TOBACCO FLAVORER Statistic TOBACCO FLAVORER Percent Paced 96.00 CV DEVICE CHECK Atrial Tachy Statistic AT/AF [place] Percent 1.00 CV DEVICE CHECK Lead Channel [...] CV DEVICE CHECK Ventricular chambers paced during TOBACCO FLAVORER pacing. BiV CV DEVICE CHECK Tashi Setting Lower Rate Limit 70 CV DEVICE CHECK Tashi Setting AT Mode Switch Rate 180 CV DEVICE CHECK Tashi Setting Maximum Tracking Rate 120 CV DEVICE CHECK Tashi Setting Maximum Sensor Rate 120 CV DEVICE CHECK Tashi Setting PAV Delay 150 CV DEVICE CHECK Tashi Setting JOHN Delay 120 CV DEVICE CHECK TOBACCO FLAVORER LV-RV Delay 20 CV D EVICE CHECK [...] No overt HF present Narrative Procedure Note Steev Pickard MD - 10/14/2024 IMPRESSION: Heart Failure Diagnostic: Stable * Heart failure diagnostics assessed through the device * Status: Stable * No overt HF present us Steve Pickard MD CV IMPLANTABLE CARDIAC DEV ICE PROCEDURES Final Result documented in this encounter Visit Diagnoses Not on filedocumented in this encounter Care Teams Coding Spec Relationship Specialty Start Date End Date Noreen Sumner MD [address] [place] [address] PCP - General Internal Medicine 03/17/21 documented as of this encounter
--- OUTSIDE RECORDS SUMMARY | 2024-10-16 12:22 | XMS_ITS | Encounter Summary ---
Author Organization [facility] Address [address] [place] [address] Phone Care Team Providers Care Architectural Design Professor Name Role Phone Noreen Sumner MD Primary Care Provider [phone] Reason for Visit * Reason Comments Med Refill Encounter Details Date Type Department Care Team (Late st Contact Info) Description 04/09/2021 Refill [facility] [address] [place] [phone] Linwood Coyle MD Social History Tobacco Use [...] on filedocumented in this encounter Care Teams Architectural Design Professor Relationship Specialty Start Date End Date Noreen Sumner MD [address] [place] [address] PCP - General Internal Medicine 05/17/21 documented as of this encounter
--- OUTSIDE RECORDS SUMMARY | 2024-10-16 12:22 | XMS_ITS | Encounter Summary ---
Author Organization [facility] Address [address] [place] [address] Care Team Providers Care Lopper Name Role Phone Noreen Sumner MD Primary Care Provider [phone] Encounter Details Date Type Department Care Team (Late st Contact Info) Description 10/10/2024 11:25 PM EDT Ancillary Procedure [facility] Cardiology [facility] - [facility] [address] [facility] [address] [place] [phone] Social History Tobacco Use Types Packs/Day Years [...] Description 01/27/2025 8:50 AM EDT Office Visit [facility] Cardiology [facility] - [address] [place] [phone] Sergei Fofana MD [address] [place] [address] [address]IVE [address] [place] [address] 06/17/2025 9:00 AM EST Office Visit [facility] Hematology Oncology [address] [place] [phone] Max Butcher MD [address] [place] [address] 08/26/2025 9:00 AM EST Ancillary Procedure [facility] - [address] [place] [phone] documented as of this encounter Procedures Procedure Name Priority Date/Time Associated Diagnosis Comments CARDIAC DEVICE CHECK- REMOTE- MURJ Routine 10/10/2024 11:23 PM EDT documented in this encounter Results * Cardiac device check - Remote- MURJ (10/10/2024 11:23 PM EDT) Date Time Interrogation Session [id number] CV DEVICE CHECK Type Interrogation Session Remote Scheduled CV DEVICE CHECK Implantable Pulse Generator Yard Truck Driver St.Oneal CV DEVICE CHECK Implantable Pulse Generator Type UMBRELLA TIPPER-D CV DEVICE CHECK Implantable Pulse Generator Model [id number] Hands() CV DEVICE CHECK Implantable Pulse Generator Serial Number [id number] CV DEVICE CHECK Implantable Pulse Generator Implant Date 20180117 CV DEVICE CHECK Battery Remaining Percentage 28.00 CV DEVICE CHECK Battery Remaining Longevity 22.0 CV DEVICE CHECK Battery Voltage 2.840 CV D EVICE CHECK Battery VEGETABLE LOADER Trigger 2.590 CV DEVICE CHECK Battery Status Middle of Service CV DEVICE CHECK Capacitor Charge Time 9.300 CV DEVICE CHECK Tashi Statistic RA Percent Paced 18.00 CV DEVICE CHECK Tashi Statistic RV Percent Paced 97.00 CV DEVICE CHECK UMBRELLA TIPPER Statistic UMBRELLA TIPPER Percent Paced 96.00 CV DEVICE CHECK Atrial Tachy Statistic AT/AF [place] Percent 1.00 CV DEVICE CHECK Lead Channel [...] CV DEVICE CHECK Ventricular chambers paced during UMBRELLA TIPPER pacing. BiV CV DEVICE CHECK Tashi Setting Lower Rate Limit 70 CV DEVICE CHECK Tashi Setting AT Mode Switch Rate 180 CV DEVICE CHECK Tashi Setting Maximum Tracking Rate 120 CV DEVICE CHECK Tashi Setting Maximum Sensor Rate 120 CV DEVICE CHECK Tashi Setting PAV Delay 150 CV DEVICE CHECK Tashi Setting JOHN Delay 120 CV DEVICE CHECK UMBRELLA TIPPER LV-RV Delay 20 CV D EVICE CHECK [...] on filedocumented in this encounter Care Teams Lopper Relationship Specialty Start Date End Date Noreen Sumner MD [address] [place] [address] PCP - General Internal Medicine 03/17/21 documented as of this encounter
--- OUTSIDE RECORDS SUMMARY | 2024-10-16 12:22 | XMS_ITS | Encounter Summary ---
Author Organization [facility] Address [address] [place] [address] Care Team Providers Care Junior High School Teacher Name Role Phone Noreen Sumner MD Primary Care Provider [phone] Encounter Details Date Type Department Care Team (Late st Contact Info) Description 10/10/2024 8:15 PM EDT Ancillary Procedure [facility] Cardiology [facility] - [facility] [address] [facility] [address] [place] [address] Social History Tobacco Use Types Packs/Day Years [...] Description 01/27/2025 8:50 AM EDT Office Visit [facility] Cardiology [facility] - [address] [place] [phone] Sergei Fofana MD [address] [place] [address] [address]IVE [address] [place] [address] 06/17/2025 9:00 AM EST Office [facility] Hematology Oncology [address] [place] [phone] Max Butcher MD [address] [place] [address] 08/26/2025 9:00 AM EST Ancillary Procedure [facility] - [address] [place] [phone] documented as of this encounter Procedures Procedure Name Priority Date/Time Associated Diagnosis Comments CARDIAC DEVICE CHECK- REMOTE- MURJ Routine 10/10/2024 8:14 PM EDT documented in this encounter Results * Cardiac device check - Remote- MURJ (10/10/2024 8:14 PM EDT) Date Time Interrogation Session [id number] CV DEVICE CHECK Type Interrogation Session Remote Scheduled CV DEVICE CHECK Implantable Pulse Generator Food Service Associate St.Oneal CV DEVICE CHECK Implantable Pulse Generator Type BEER MAKER-D CV DEVICE CHECK Implantable Pulse Generator Model 3357-40Q MicroCoal() CV DEVICE CHECK Implantable Pulse Generator Serial Number [id number] CV DEVICE CHECK Implantable Pulse Generator Implant Date 20180117 CV DEVICE CHECK Battery Remaining Percentage 27.00 CV DEVICE CHECK Battery Remaining Longevity 20.0 CV DEVICE CHECK Battery Voltage 2.830 CV D EVICE CHECK Battery CASTING WHEEL OPERATOR HELPER Trigger 2.590 CV DEVICE CHECK Battery Status Middle of Service CV DEVICE CHECK Capacitor Charge Time 9.300 CV DEVICE CHECK Tashi Statistic RA Percent Paced 30.00 CV DEVICE CHECK Tashi Statistic RV Percent Paced 97.00 CV DEVICE CHECK BEER MAKER Statistic BEER MAKER Percent Paced 97.00 CV DEVICE CHECK Atrial Tachy Statistic AT/AF [place] Percent 1.00 CV DEVICE CHECK Lead Channel [...] CV DEVICE CHECK Ventricular chambers paced during BEER MAKER pacing. BiV CV DEVICE CHECK Tashi Setting Lower Rate Limit 70 CV DEVICE CHECK Tashi Setting AT Mode Switch Rate 180 CV DEVICE CHECK Tashi Setting Maximum Tracking Rate 120 CV DEVICE CHECK Tashi Setting Maximum Sensor Rate 120 CV DEVICE CHECK Tashi Setting PAV Delay 150 CV DEVICE CHECK Tashi Setting JOHN Delay 120 CV DEVICE CHECK BEER MAKER LV-RV Delay 20 CV D EVICE CHECK [...] on filedocumented in this encounter Care Teams Junior High School Teacher Relationship Specialty Start Date End Date Noreen Sumner MD [address] [place] [address] PCP - General Internal Medicine 03/17/21 documented as of this encounter
--- OUTSIDE RECORDS SUMMARY | 2024-10-16 12:22 | XMS_ITS ---
Author Organization [facility] Address [address] [place] [address] Care Team Providers Care Assistant Professor Of Life Sciences Name Role Phone DIMITRY HUGHES Primary Care Provider [phone] REASON FOR VISIT New RX Request Medications Medication SIG (Take, Route, Frequency, Duration) Notes Start Date End Date Status Ozempic (0.25 or 0.5 MG/DOSE) 2 MG/1.5ML 0.25 mg Subcutaneous once a week for 30 days Active Encounters Encounter Location Date Provider Diagnosis [address] [address] 08/06/2024 DIMITRY HUGHES Plan Of Treatment Medication Medication Name Sig Start Date Stop Date Notes Ozempic (0.25 or 0.5 MG/DOSE) 2 MG/1.5ML 0.25 mg Subcutaneous once a week for 30 days Next Appt Details Provider Name:DIMITRY HUGHES , 02/09/2025 03:00:00 PM, [address] [place] [address], [place], [address], Progress Notes * Chadwick CARDOSODOB:1950 (73 yo M)Acc No.[id number]:08/06/2024 Patient:?Chadwick CARDOSO :1950???Age:73 Y???Sex:Male Phone: Address:[address] [place] [address], [place] [address] * Refills? Refill Ozempic (0.25 or 0.5 MG/DOSE) Solution Pen-injector, 2 MG/1.5ML, Subcutaneous, 6 ml, 0.25 mg, once a week, 30 days, Refills=3 * true * Date:? Generated for Piter ly/Curtis/Carlos Eduardo on:?10/16/2024 12:21 PM EDT
--- OUTSIDE RECORDS SUMMARY | 2024-10-16 12:22 | XMS_ITS | Patient Health Record ---
Author Organization [facility] Address [address] [facility] [address] [place] [address] Care Team Providers Care Slab Grinder Name Role Phone MICHAELGamaliel DIMITRY Primary Care Provider Allergies No Known Allergies Results Component Value Reference Range Notes Hgb A1c with eAG Estimation- [id number] Reviewed date:01/30/2024 08:30:53 AM Interpretation: Performing Lab:[facility], [address] [place] [address], Phone - [phone], Director - Evin Notes/Report: Hemoglobin A1c 7.1 4.8-5.6 % . Prediabetes: 5.7 - 6.4 Diabetes: >6.4 Glycemic control for adults with diabetes: <7.0 Estim. Avg Glu (eAG) 157 Hemoglobin A1c Reviewed date:07/20/2024 07:20:32 PM Interpretation: Performing Lab:[facility], [address] [place] [address], Phone - [phone], Director - Padmini Notes/Report: Hemoglobin A1c 6.3 Reference Range: [place] Diabetes Association (ADA) Guidelines: <5.7: Decreased risk for diabetes 5.7 - 6.4: Increased risk for diabetes >6.4: Ongoing Hyperglycemia of any cause <7.0: Glycemic control for adults with diabetes Estimated Average Glucose 134 Reason For Referral Reason Evaluation and manag ement Diagnosis 1 Tinea pedis (B35.3) Referral Organization [facility] Referring Provider First Name DIMITRY Referring Provider Last Name MICHAELGamaliel Referring Provider Speciality Internal M edicine Referred Provider Specialty Podiatry General Notes Referral sent to [facility] in [place] - Dept will call patient for scheduling.Ana [...] W/U Status Risk Notes Problem Polycythemia vera (494081012) Polycythemia vera (D45) Active confirmed Problem Disorder due to type 2 diabetes mellitus (276199329) Type 2 diabetes mellitus with unspecified complications (E11.8) Active confirmed Problem Mixed hyperlipidemia (904321430) Mixed hyperlipidemia (E78.2) Active confirmed Problem Essential hypertension (02812755) Essential (primary) hypertension (I10) Active confirmed Problem Atherosclerotic heart disease of [place] coronary artery without angina pectoris (246471879420095) Atherosclerotic heart disease of [place] coronary artery without angina pectoris (I25.10) Active confirmed Problem 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 (604238928) 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) Active confirmed Problem Chronic systolic heart failure (508799823) Chronic systolic (congestive) heart failure (I50.22) Active confirmed Problem Endocardial thrombosis (46340000) Intracardiac thrombosis, 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 confirmed Problem Cardiac pacemaker in situ (829962603) Presence of cardiac pacemaker (Z95.0) Active confirmed Problem Automatic implantable cardiac defibrillator in situ (309078180) Presence of automatic (implantable) cardiac defibrillator (Z95.810) Active confirmed Vital Signs Heart Rate 70 /min 07/23/2024 Temperature 98.4 degrees Fahrenheit 07/23/2024 Blood pressure diastolic 70 mm Hg 07/23/2024 Oximetry 97 % 07/23/2024 Height 67 in 07/23/2024 Blood pressure systolic 110 mm Hg 07/23/2024 Weight 187.9 lbs 07/23/2024 BMI 29.43 kg/m2 07/23/2024 Encounters Encounter Location Date Provider Diagnosis [address] [address] 02/04/2024 DIMITRY HUGHES Encounter for genera l adult medical examination without abnormal findings Z00.00 ; Type 2 diabetes mellitus with unspecified complications E11.8 ; Atherosclerosis of coronary artery bypass graft(s) without angina pectoris I25.810 ; Chronic systolic (congestive) heart failure I50.22 ; Essential (primary) hypertension I10 and Mixed hyperlipidemia E78.[address] [place] [address] 07/23/2024 DIMITRY HUGHES Type 2 diabetes shaun itus with unspecified complications E11.8 ; Atherosclerosis of coronary artery bypass graft(s) without angina pectoris I25.810 ; Intracardiac thrombosis, not elsewhere classified I51.3 ; Essential (primary) hypertension I10 ; Mixed hyperlipidemia E78.2 and Encounter for screening for malignant neoplasm of prostate Z12.[address] [place] [address] 05/26/2024 DIMITRY HUGHES Type 2 diabetes shaun itus with unspecified complications E11.[address] [place] [address] 08/06/2024 DIMITRY HUGHES Assessments Encounter Date Diagnosis (ICD Code) Assessment Notes Treatment Notes Treatment Clinical Notes Section Notes 05/26/2024 Type 2 diabetes mellitus with unspecified complications (ICD-10 - E11.8) 07/23/2024 Type 2 diabetes mellitus with unspecified [...] the right medications. He follows up with [employer] compliance internship Dr. Coyle. He is seen radial saw operator. Foot care discussed with the patient. Repeat [...] Screening blood work before next appointment 02/04/2024 Type 2 diabetes mellitus with unspecified [...] on right medications. He has seen his radial saw operator in the past 1 year. Foot care [...] and is asymptomatic. He follows up with shoe cementer. He is on right medications. Monitor weight [...] a month. Eye screening. He sees his radial saw operator regularly. Dental screening. He sees dentist regularly. [...] this note under HIPAA compliance and under [place] law mandated for scribe services. Patient aware [...] on right medications. He has seen his radial saw operator in the past 1 year. Foot care [...] and is asymptomatic. He follows up with shoe cementer. He is on right medications. Monitor weight [...] a month. Eye screening. He sees his radial saw operator regularly. Dental screening. He sees dentist regularly. [...] this note under HIPAA compliance and under [place] law mandated for scribe services. Patient aware [...] on right medications. He has seen his radial saw operator in the past 1 year. Foot care [...] and is asymptomatic. He follows up with shoe cementer. He is on right medications. Monitor weight [...] a month. Eye screening. He sees his radial saw operator regularly. Dental screening. He sees dentist regularly. [...] this note under HIPAA compliance and under [place] law mandated for scribe services. Patient aware [...] the right medications. He follows up with [employer] compliance internship Dr. Coyle. He is seen radial saw operator. Foot care discussed with the patient. Repeat [...] the right medications. He follows up with [employer] compliance internship Dr. Coyle. He is seen radial saw operator. Foot care discussed with the patient. Repeat [...] on right medications. He has seen his radial saw operator in the past 1 year. Foot care [...] and is asymptomatic. He follows up with shoe cementer. He is on right medications. Monitor weight [...] a month. Eye screening. He sees his radial saw operator regularly. Dental screening. He sees dentist regularly. [...] this note under HIPAA compliance and under [place] law mandated for scribe services. Patient aware [...] the right medications. He follows up with [employer] compliance internship Dr. Coyle. He is seen radial saw operator. Foot care discussed with the patient. Repeat [...] on right medications. He has seen his radial saw operator in the past 1 year. Foot care [...] and is asymptomatic. He follows up with shoe cementer. He is on right medications. Monitor weight [...] a month. Eye screening. He sees his radial saw operator regularly. Dental screening. He sees dentist regularly. [...] this note under HIPAA compliance and under [place] law mandated for scribe services. Patient aware [...] the right medications. He follows up with [employer] compliance internship Dr. Coyle. He is seen radial saw operator. Foot care discussed with the patient. Repeat [...] on right medications. He has seen his radial saw operator in the past 1 year. Foot care [...] and is asymptomatic. He follows up with shoe cementer. He is on right medications. Monitor weight [...] a month. Eye screening. He sees his radial saw operator regularly. Dental screening. He sees dentist regularly. [...] this note under HIPAA compliance and under [place] law mandated for scribe services. Patient aware of service. Verbal consent and written consent taken from the patient. Patient understands and verbalizes understanding of the scribes services and all questions answered regarding scribes services. Patient agrees to use of scribes services. 07/23/2024 Encounter for screening for malignant neoplasm of prostate (ICD-10 - Z12.5) Chawdick is 72 years old gentleman with insulin-dependent [...] the right medications. He follows up with [employer] compliance internship Dr. Coyle. He is seen radial saw operator. Foot care discussed with the patient. Repeat [...] Future Test Test Name Order Date Hemoglobin [id number] 07/23/2024 [id number] 07/23/2024 Albumin/Creatinine Ratio,Urine-[id number] Lipid Panel-[id number] 07/23/2024 Comp. Metabolic Panel [id number] 2024 PSA (Serial Monitor)-[id number] 07/23/2024 Next Appt Details Provider Name:MORAESQUINTEN HUGHES , 02/09/2025 03:00:00 PM, [address] [place] [address], [phone], Insurance Providers Payer Name Payer Address Payer Phone Subscriber Number Group Number Insured Name Patient Relationship to Insured Coverage Start Date Coverage End Date Medicare [address] [place] [address] [phone] [id number] Chadwick Siddiqi i Self - patient is the insured [employer] ([employer]) [address] [place] [address] [id number] Chadwick Siddiqi i Self - patient [...]
--- OUTSIDE RECORDS SUMMARY | 2024-10-16 12:23 | XMS_ITS | Clinical Summary ---
Author Organization [facility] Address [address] [facility] [address] [place] [address] Phone Care Team Providers Care Private Equity Associate Name Role Phone Noreen Sumner MD Primary Care Provider [phone] Allergies No known active allergies Medications omega-3 [...] disease 01/01/2023 Atherosclerotic heart diseas e of [place] coronary artery without angina pectoris 07/17/2022 Body [...] 01/11/2021 12/29/2021 Urinary tract obstruction 02/14/2017 Immunizations Immunization Administration Dates Next Due Influenza Split High [...] Due Date Last Done Comments Pneumococcal Vaccine: 50+ Years (1 of 2 - PCV) 1956 [...] patient's age to complete this topic Insurance Medicare [facility] Medicare Care Teams Private Equity Associate Relationship Specialty Start Date End Date Noreen Sumner MD [address] [place] [address] PCP - General Internal Medicine 05/17/21
--- OUTSIDE RECORDS SUMMARY | 2024-10-16 12:23 | XMS_ITS ---
Author Organization [facility] Address [address] [place] [address] [address] [place] [address] Care Team Providers Care Inside Sales Manager Name Role Phone DIMITRY HUGHES Primary Care Provider [phone] Allergies No Known Allergies REASON FOR VISIT [...] 07/23/2024 Encounters Encounter Location Date Provider Diagnosis [facility] [address] [facility] [address] [place] [address] 07/23/2024 DIMITRY HUGHES Type 2 diabetes shaun [...] the right medications. He follows up with traveling nurse Dr. Coyle. He is seen finisher polisher . Foot care discussed with the patient. [...] the right medications. He follows up with traveling nurse Dr. Coyle. He is seen finisher polisher . Foot care discussed with the patient. [...] the right medications. He follows up with traveling nurse Dr. Coyle. He is seen finisher polisher . Foot care discussed with the patient. [...] the right medications. He follows up with traveling nurse Dr. Coyle. He is seen finisher polisher . Foot care discussed with the patient. [...] the right medications. He follows up with traveling nurse Dr. Coyle. He is seen finisher polisher . Foot care discussed with the patient. [...] the right medications. He follows up with traveling nurse Dr. Coyle. He is seen finisher polisher . Foot care discussed with the patient. [...] Future Test Test Name Order Date Hemoglobin [id number] 07/23/2024 [id number] 07/23/2024 Albumin/Creatinine Ratio,Urine-[id number] Lipid Panel-[id number] 07/23/2024 Comp. Metabolic Panel ([id number] 2024 PSA (Serial Monitor)-[id number] 07/23/2024 Next Appt Details Follow Up: 6 Months- AW, Angelica son: Provider Name:DIMITRY HUGHES , 02/09/2025 03:00:00 PM, [address] [place] [address], [phone], Progress Notes * Chadwick MURILLODOB:1950 (73 yo M)Acc No.[id number]:07/23/2024 Progress Notes Patient:?Chadwick MURILLO Provider:?DIMITRY HUGHES MD :1950???Age:73 Y???Sex:Male Chandu e:07/23/2024 Phone: Address:[address] [place], [place] [phone] Subjective: * Chief Complaints: * ???6 month [...] - mg/dL ???Lab:Hgb A1c with eAG Greer hermosillo-[id number] (Order Date - 01/28/2024) (Collection Date & [...] extremities, sensory exam intact.?FEMALE GENITOURINARY:?__.?MALE GENITOURINARY:?..., .?PODIATRIC:?tinea pedis/unguium.?Furniture Decals Inspector? .? Assessment: * Assessment: 1.?Type 2 diabetes [...] the right medications.? He follows up with traveling nurse Dr. Coyle.? He is seen finisher polisher.? Foot care discussed with the patient.? Repeat [...] ry artery bypass graft(s) without angina pectoris?LAB: [id number] (Ordered for 07/23/2024) 3.?Encounter for screening f or malignant neoplasm of prostate?LAB: PSA (Serial Monitor)-[id number] (Ordered for 07/23/2024) * Procedure Codes:?G2211 Compl ex e/m visit add [id number] HG A1C LEVEL LT 7.0%1123F ACP DISCUSS/DSCN MKR [id number] COLORECTAL CA SCREEN DOC [id number] BMI<30 AND >=22 CALC & [id number] NEG SCR D PT NOT ELIG F/U/PLN [id number] ELDER MALTX SCR DOC NEG NO F/U [id number] Pt scrn tbco id as non [id number] MOST RECENT SYSTOLIC BP < 140MM [id number] MOST RECENT DIASTOLIC BP < 90MM [id number] NORMAL BP READING DOC F/U NOT RQR * Follow Up:?6 Months- AW * * Sign off status: Completed true * Provider:?DIMITRY HUGHES MD Date:?07/23 Generated for Piter ly/Curtis/eTransmitting on:?10/16/2024 12:22 PM EDT History and Physical Notes * [...] pedis/unguium Psychiatry Normal OROPHARYNX Normal SINUSES Normal Furniture Decals Inspector
== END 2024-10-16 10:56 | disposition home or self-care (01) ==
LOC: HO.HKAS 10:27
PROVIDERS: PCP Hospitalist; Visit Provider Internal Medicine Nephrology
DX: M10.072 Idiopathic gout, left ankle and foot (principal); E11.21 Type 2 diabetes mellitus with diabetic nephropathy; I10 Essential (primary) hypertension; N18.31 Chronic kidney disease, stage 3a
CPT/HCPCS: 99214

== ENCOUNTER → 2024-10-16 10:26 | Outpatient (BNVA) | payer MEDICARE, OTHER, SELFPAY | PROVIDERS: PCP Hospitalist; Visit Provider Internal Medicine Nephrology | DX: E11.22 Type 2 diabetes mellitus with diabetic chronic kidney disease (principal); I12.9 Hypertensive chronic kidney disease with stage 1 through stage 4 chronic kidney disease, or unspecified chronic kidney disease; N18.31 Chronic kidney disease, stage 3a; E11.21 Type 2 diabetes mellitus with diabetic nephropathy; M10.072 Idiopathic gout, left ankle and foot | CPT/HCPCS: 99212 ==

== ENCOUNTER 2025-01-27 15:46 | Outpatient (AMB) | payer MEDICARE, OTHER, SELFPAY ==
--- NOTE | 2025-01-27 16:08 | HO.NEPHOV ---
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 His blood sugar control is fair. His blood pressure has been at goal. He denies any chest pain, shortness of breath, proximal nocturnal dyspnea, orthopnea or pedal edema. He has no urinary symptoms. He is compliant with his medications. He avoids nonsteroidal anti-inflammatory medications. His serum creatinine is stable. He recently had cellulitis of RLE which is not yet resolved. He has not been taking any NSAID's. [facility] Medical History Chronic kidney disease, stage 3a Hypertension Surgical History History of cataract surgery History of appendectomy H/O aortic valve replacement Hx of CABG Family History Mother Aneurysm Father Heart attack Social History Alcohol intake: never Patient Tobacco Use Status: Never used Tobacco Review of Systems Const All systems reviewed & are unremarkable except as noted in HPI and below Physical Exam Vital Signs: Last Vital Signs Pulse 70 01/27/25 16:13 BP 98/60 01/27/25 16:13 Pulse Ox 95 01/27/25 16:13 Oxygen Delivery Method Room Air 01/27/25 16:13 BMI result Body Mass Index 28.8 Const General: comfortable and no acute distress Orientation/consciousness: patient oriented x3 HEENT Head: Yes normocephalic Mouth: Normal oral and palatal mucosa present Eyes EOM: EOMs intact bilaterally Neck Neck: Yes supple Resp Auscultation: clear to auscultation bilaterally Cardio Jugular venous distension: no JVD Rate: regular rate GI Palpation (GI): Soft to palpation Auscultation: normal bowel sounds General: Yes no CVA tenderness Back/Spine/Pelvis Back: no CVA tenderness Skin General skin exam: no rashes or lesions noted Neuro General: patient oriented x3 and moves all extremities Extrem Other: RLE cellulitis Assessment & Plan Assessment & Plan (1) Hypertension: Code(s): I10 - Essential (primary) hypertension Category: Medical Qualifiers: Hypertension type: primary hypertension Qualified Code(s): I10 - Essential (primary) hypertension (2) CKD (chronic kidney disease) stage 3, GFR 30-59 ml/min: Code(s): N18.30 - Chronic kidney disease, stage 3 unspecified Category: Medical Qualifiers: Chronic kidney disease stage 3 subtype: stage 3a (GFR 45-59) Qualified Code(s): N18.31 - Chronic kidney disease, stage 3a (3) Diabetic nephropathy: Code(s): E11.21 - Type 2 diabetes mellitus with diabetic nephropathy Category: Medical Qualifiers: Diabetes mellitus type: type 2 Qualified Code(s): E11.21 - Type 2 diabetes mellitus with diabetic nephropathy (4) Cellulitis: Code(s): L03.90 - Cellulitis, unspecified Category: Medical Qualifiers: Site of cellulitis: extremity Site of cellulitis of extremity: lower extremity Laterality: right Qualified Code(s): L03.115 - Cellulitis of right lower limb Plan 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 His serum creatinine is stable. He is on Entresto and Jardiance. He had a F/U ECHO. WE may have to hold his Entresto if his creatinine rises. He does not have any worsening proteinuria. His blood pressure is at goal at home. He avoids nonsteroidal anti-inflammatories. He maintains good hydration. He is on statins. He should continue on Allopurinol 100 mg daily. I prescribed Doxycycline for his cellulitis. I did not make any other medication changes today. Answered all questions. Orders: Orders Blood Urea Nitrogen 3 Months E11.21 - Type 2 diabetes mellitus with diabetic nephropathy, I10 - Essential (primary) hypertension, N18.31 - Chronic kidney disease, stage 3a Electrolytes 3 Months E11.21 - Type 2 diabetes mellitus with diabetic nephropathy, I10 - Essential (primary) hypertension, N18.31 - Chronic kidney disease, stage 3a Calcium 3 Months E11.21 - Type 2 diabetes mellitus with diabetic nephropathy, I10 - Essential (primary) hypertension, N18.31 - Chronic kidney disease, stage 3a Complete Blood Count Auto Diff 3 Months E11.21 - Type 2 diabetes mellitus with diabetic nephropathy, I10 - Essential (primary) hypertension, N18.31 - Chronic kidney disease, stage 3a Creatinine 3 Months E11.21 - Type 2 diabetes mellitus with diabetic nephropathy, I10 - Essential (primary) hypertension, N18.31 - Chronic kidney disease, stage 3a Medications: New doxycycline hyclate 100 mg PO BID 14 caps 0RF Coding Level of Care Code Est Pt Level 4 (35008) Diagnoses Primary hypertension I10 Hypertension type: primary hypertension Stage 3a chronic kidney disease N18.31 Chronic kidney disease stage 3 subtype: stage 3a (GFR 45-59) 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
[2025-01-27 16:13] VITALS: BP 98/60; PULSE 70; O2SAT 95; BMI 28.8
--- OUTSIDE RECORDS SUMMARY | 2025-01-27 16:31 | XMS_ITS ---
Author Name [facility] Organization Unknown Encounters Encounter Type Encounter Reason Primary Diagnosis Location Date Ambulatory [facility] 05/06/2024 Care Team Organization Name Specialty Phone Email Start Date End Da te [facility] 11/02/2024 [facility] 01/24/2024 025 [facility] 05/16/2022 025
--- OUTSIDE RECORDS SUMMARY | 2025-01-27 16:31 | XMS_ITS | Patient Health Record ---
Author Organization [facility] Address [address] [place] [address] Care Team Providers Care Director Of Casino Name Role Phone LANE HUGHESD Primary Care Provider [phone] Garth King Unavailable [phone] Allergies No Known Allergies Results Component Value Reference Range Notes Hemoglobin A1c Reviewed date:07/20/2024 07:20:32 PM Interpretation: Performing Lab:[facility], [address] [place] [address], Phone - [phone], [facility]Report: Hemoglobin A1c 6.3 Reference Range: [place] [employer] (ADA) Guidelines: <5.7: Decreased risk for diabetes 5.7 - 6.4: Increased risk for diabetes >6.4: Ongoing Hyperglycemia of any cause <7.0: Glycemic control for adults with diabetes Estimated Average Glucose 134 Hgb A1c with eAG Estimation- [id number] Reviewed date:01/30/2024 08:30:53 AM Interpretation: Performing Lab:[facility], [address] [place] [address], Phone - [phone], Director - Evin Notes/Report: Hemoglobin A1c 7.1 4.8-5.6 % . Prediabetes: 5.7 - 6.4 Diabetes: >6.4 Glycemic control for adults with diabetes: <7.0 Estim. Avg Glu (eAG) 157 Reason For Referral Reason Evaluation and manag ement Diagnosis 1 Tinea pedis (B35.3) Referral Organization [facility] Referring Provider First Name DIMITRY Referring Provider Last Name GUL Referring Provider Speciality Internal M edicine Referred Provider Specialty Podiatry General Notes Referral sent to [facility] in [place] - Dept will call patient for scheduling.Ana Luisa Latraya 02/04/2024 01:22:21 PM > Referral Priority Routine Reason Evaluation and manag ement Diagnosis 1 Type 2 diabetes shaun itus with other skin ulcer (E11.622) Referral Organization [facility] Referring Provider First Name Garth Referring Provider Last Name Christine Referring Provider Speciality Internal M edicine Referred Provider Specialty Other Medica l Care General Notes Referral sent to [facility] - office will call pt for scheduling., Jose Angel Peterson 11/28/2024 11:42:49 AM > Referral Priority Routine Medications Medication SIG (Take, Route, Frequency, Duration) Notes Start Date End Date Status Cephalexin 500 MG 1 capsule Orally every 6 hrs; Duration: 7 days 11/28/2024 Active Clotrimazole 1 % 1 application Externally Twice a day; Duration: 28 days 12/21/2022 Active Furosemide 40 MG 1 TABLET Orally Once a day; Duration: 90 days Active BD Pen Needle Areli 2nd Gen 32G X 4 MM USE ONCE DAILY; Duration: 30 Active Aspirin 81 MG 1 tablet Orally Once a day Active Carvedilol 25 MG TAKE 1 TABLET BY MOUTH TWICE A DAY WITH FOOD FOR 90 DAYS; Duration: 90 Active Entresto 24-26 MG 1 tablet Orally Twice a day Active Ozempic (0.25 or 0.5 MG/DOSE) 2 MG/1.5ML 0.25 mg Subcutaneous once a week; Duration: 30 days Active Amiodarone HCl 100 MG 1 tablet Orally Twice a day Active Prevnar 20 0.5 ML as directed Intramuscular 1; Duration: 365 days 12/19/2021 Not-Taking Lantus 100 UNIT/ML 40 units in the evening Subcutaneous Once a day or as directed; Duration: 30 days 09/11/2023 Active Warfarin Sodium 5 MG as directed Orally Daily Followed by cardiology Active Fish Oil 1000 MG as directed Orally 3 capsules daily Active Jardiance 25 MG 1 tablet Orally Once a day Active Basaglar KwikPen 100 UNIT/ML Inject 40 units Subcutaneous daily; Duration: 30 days Active Atorvastatin Calcium 80 MG 1 tablet Orally Once a day Active glipiZIDE ER 5 MG TAKE 1 TABLET BY MOUTH EVERY DAY WITH BREAKFAST; Duration: 30 Active Immunizations Vaccine Route Administration Date Status Comme [...] W/U Status Risk Notes Problem Polycythemia vera (485748991) Polycythemia vera (D45) Active confirmed Problem Secondary diabetes mellitus (9578391) Diabetes mellitus due to underlying condition with hyperglycemia (E08.65) Active confirmed Problem Skin ulcer associated with diabetes mellitus (059828895) Type 2 diabetes mellitus with other skin ulcer (E11.622) Active confirmed Problem Disorder due to type 2 diabetes mellitus (209502023) Type 2 diabetes mellitus with unspecified complications (E11.8) Active confirmed Problem Mixed hyperlipidemia (877830701) Mixed hyperlipidemia (E78.2) Active confirmed Problem Essential hypertension (35264134) Essential (primary) hypertension (I10) Active confirmed Problem Atherosclerotic heart disease of [place] coronary artery without angina pectoris (930544917529175) Atherosclerotic heart disease of [place] coronary artery without angina pectoris (I25.10) Active confirmed Problem 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 (877521763) 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) Active confirmed Problem Chronic systolic heart failure (185616069) Chronic systolic (congestive) heart failure (I50.22) Active confirmed Problem Endocardial thrombosis (92533745) Intracardiac thrombosis, 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 confirmed Problem Cardiac pacemaker in situ (644428939) Presence of cardiac pacemaker (Z95.0) Active confirmed Problem Automatic implantable cardiac defibrillator in situ (588585153) Presence of automatic (implantable) cardiac defibrillator (Z95.810) Active confirmed Vital Signs Heart Rate 73 /min 11/28/2024 Temperature 97.6 degrees Fahrenheit 11/28/2024 Oximetry 96 % 11/28/2024 Blood pressure diastolic 72 mm Hg 11/28/2024 Height 67 in 11/28/2024 Blood pressure systolic 112 mm Hg 11/28/2024 Weight 197.2 lbs 11/28/2024 BMI 30.88 kg/m2 11/28/2024 Encounters Encounter Location Date Provider Diagnosis [address] [place] [address] 02/04/2024 DIMITRY HUGHES Encounter for genera l adult medical examination without abnormal findings Z00.00 ; Type 2 diabetes mellitus with unspecified complications E11.8 ; Atherosclerosis of coronary artery bypass graft(s) without angina pectoris I25.810 ; Chronic systolic (congestive) heart failure I50.22 ; Essential (primary) hypertension I10 and Mixed hyperlipidemia E78.[address] [place] [address] 07/23/2024 DIMITRY HUGHES Type 2 diabetes shaun itus with unspecified complications E11.8 ; Atherosclerosis of coronary artery bypass graft(s) without angina pectoris I25.810 ; Intracardiac thrombosis, not elsewhere classified I51.3 ; Essential (primary) hypertension I10 ; Mixed hyperlipidemia E78.2 and Encounter for screening for malignant neoplasm of prostate Z12.[address] [place] [address] 11/28/2024 [place] Type 2 diabetes shaun itus with other skin ulcer E11.622 ; Diabetes mellitus due to underlying condition with hyperglycemia E08.65 ; Atherosclerosis of coronary artery bypass graft(s) without angina pectoris I25.810 ; Essential (primary) hypertension I10 and Mixed hyperlipidemia E78.[address] [place] [address] 05/26/2024 DIMITRY HUGHES Type 2 diabetes shaun itus with unspecified complications E11.[address] [place] [address] 08/06/2024 [facility] [address] [place] [address] 11/25/2024 [facility] [address] [place] [address] 11/28/2024 Garth Knig Assessments Encounter Date Diagnosis (ICD Code) Assessment Notes Treatment Notes Treatment Clinical Notes Section Notes 11/28/2024 Type 2 diabetes mellitus with other skin ulcer (ICD-10 - E11.622) Chadwick is 74 years old gentleman with insulin-dependent DM type II, coronary artery disease, status post CABG, CHF, status post ICD placement, hypertension, hyperlipidemia, polycythemia vera, chronic kidney disease is here for evaluation of right lower extremity wound. Right lower extremity hematoma and a 3 cm wound. Most likely patient had a trauma developed a hematoma which is now draining and has some superimposed infection. Patient is high risk for wound infection as being diabetic and has peripheral vascular disease. We will start Keflex 500 mg 4 times a day for 7 days, we will arrange for a wound clinic referral and a quick appointment. Wound will be cleaned and will apply a dry dressing. Discussed with patient if any worsening symptoms he is to inform us or go to the emergency room. Currently he is afebrile and does not appear toxic looking. discussed with patient to keep the wound dry and will be applying a 4 x 4 gauze. Insulin-dependent DM type II.Continue with his home medication without any changes Coronary artery disease/intracardi ac thrombus/CHF/statu s post ICD placement. He is stable cardiac gutierres. He is on warfarin and INR is monitored by cardiology. Hypertension/hyper lipidemia. Blood pressure well controlled on current regimen and last lipid panel was within normal limits. 11/28/2024 Diabetes mellitus due to underlying condition with hyperglycemia (ICD-10 - E08.65) Chadwick is 74 years old gentleman with insulin-dependent DM type II, coronary artery disease, status post CABG, CHF, status post ICD placement, hypertension, hyperlipidemia, polycythemia vera, chronic kidney disease is here for evaluation of right lower extremity wound. Right lower extremity hematoma and a 3 cm wound. Most likely patient had a trauma developed a hematoma which is now draining and has some superimposed infection. Patient is high risk for wound infection as being diabetic and has peripheral vascular disease. We will start Keflex 500 mg 4 times a day for 7 days, we will arrange for a wound clinic referral and a quick appointment. Wound will be cleaned and will apply a dry dressing. Discussed with patient if any worsening symptoms he is to inform us or go to the emergency room. Currently he is afebrile and does not appear toxic looking. discussed with patient to keep the wound dry and will be applying a 4 x 4 gauze. Insulin-dependent DM type II.Continue with his home medication without any changes Coronary artery disease/intracardi ac thrombus/CHF/statu s post ICD placement. He is stable cardiac gutierres. He is on warfarin and INR is monitored by cardiology. Hypertension/hyper lipidemia. Blood pressure well controlled on current regimen and last lipid panel was within normal limits. 02/04/2024 Type 2 diabetes mellitus with unspecified [...] on right medications. He has seen his home stereo equipment installer in the past 1 year. Foot care [...] and is asymptomatic. He follows up with multifocal button grinder. He is on right medications. Monitor weight [...] a month. Eye screening. He sees his home stereo equipment installer regularly. Dental screening. He sees dentist regularly. [...] this note under HIPAA compliance and under [place] law mandated for scribe services. Patient aware [...] on right medications. He has seen his home stereo equipment installer in the past 1 year. Foot care [...] and is asymptomatic. He follows up with multifocal button grinder. He is on right medications. Monitor weight [...] a month. Eye screening. He sees his home stereo equipment installer regularly. Dental screening. He sees dentist regularly. [...] this note under HIPAA compliance and under [place] law mandated for scribe services. Patient aware of service. Verbal consent and written consent taken from the patient. Patient understands and verbalizes understanding of the scribes services and all questions answered regarding scribes services. Patient agrees to use of scribes services. 05/26/2024 Type 2 diabetes mellitus with unspecified [...] the right medications. He follows up with insole rounder Dr. Coyle. He is seen home stereo equipment installer. Foot care discussed with the patient. Repeat [...] he follows up with Dr. Coyle Polycythvon verniko. He follows up with Dr. Butcher [...] the right medications. He follows up with insole rounder Dr. Coyle. He is seen home stereo equipment installer. Foot care discussed with the patient. Repeat [...] on right medications. He has seen his home stereo equipment installer in the past 1 year. Foot care [...] and is asymptomatic. He follows up with multifocal button grinder. He is on right medications. Monitor weight [...] a month. Eye screening. He sees his home stereo equipment installer regularly. Dental screening. He sees dentist regularly. [...] this note under HIPAA compliance and under [place] law mandated for scribe services. Patient aware [...] on right medications. He has seen his home stereo equipment installer in the past 1 year. Foot care [...] and is asymptomatic. He follows up with multifocal button grinder. He is on right medications. Monitor weight [...] a month. Eye screening. He sees his home stereo equipment installer regularly. Dental screening. He sees dentist regularly. [...] this note under HIPAA compliance and under [place] law mandated for scribe services. Patient aware of service. Verbal consent and written consent taken from the patient. Patient understands and verbalizes understanding of the scribes services and all questions answered regarding scribes services. Patient agrees to use of scribes services. 11/28/2024 Atherosclerosis of coronary artery bypass graft(s) without angina pectoris (ICD-10 - I25.810) Chadwick is 74 years old gentleman with insulin-dependent DM type II, coronary artery disease, status post CABG, CHF, status post ICD placement, hypertension, hyperlipidemia, polycythemia vera, chronic kidney disease is here for evaluation of right lower extremity wound. Right lower extremity hematoma and a 3 cm wound. Most likely patient had a trauma developed a hematoma which is now draining and has some superimposed infection. Patient is high risk for wound infection as being diabetic and has peripheral vascular disease. We will start Keflex 500 mg 4 times a day for 7 days, we will arrange for a wound clinic referral and a quick appointment. Wound will be cleaned and will apply a dry dressing. Discussed with patient if any worsening symptoms he is to inform us or go to the emergency room. Currently he is afebrile and does not appear toxic looking. discussed with patient to keep the wound dry and will be applying a 4 x 4 gauze. Insulin-dependent DM type II.Continue with his home medication without any changes Coronary artery disease/intracardi ac thrombus/CHF/statu s post ICD placement. He is stable cardiac gutierres. He is on warfarin and INR is monitored by cardiology. Hypertension/hyper lipidemia. Blood pressure well controlled on current regimen and last lipid panel was within normal limits. 07/23/2024 Intracardiac thrombosis, not elsewhere classified (ICD-10 [...] the right medications. He follows up with insole rounder Dr. Coyle. He is seen home stereo equipment installer. Foot care discussed with the patient. Repeat [...] the right medications. He follows up with insole rounder Dr. Coyle. He is seen home stereo equipment installer. Foot care discussed with the patient. Repeat [...] on right medications. He has seen his home stereo equipment installer in the past 1 year. Foot care [...] and is asymptomatic. He follows up with multifocal button grinder. He is on right medications. Monitor weight and avoid salt intake. If there is weight gain he will inform us. Polycythemia vera. He sees Dr. Butcher. Chronic kidney disease stage 3b. He does not appear to be in volume overload. Advised appropriate hydration. Avoid NSAIDs. He sees Dr. Coyle. Michelle garnica. Foot care discussed. Referred to Podiatry. Class 1 obesity. Advised dietary restrictions and regimental exercise. Goal is to lose 5-6 lbs a month. Eye screening. He sees his home stereo equipment installer regularly. Dental screening. He sees dentist regularly. [...] this note under HIPAA compliance and under [place] law mandated for scribe services. Patient aware of service. Verbal consent and written consent taken from the patient. Patient understands and verbalizes understanding of the scribes services and all questions answered regarding scribes services. Patient agrees to use of scribes services. 11/28/2024 Essential (primary) hypertension (ICD-10 - I10) Chadwick is 74 years old gentleman with insulin-dependent DM type II, coronary artery disease, status post CABG, CHF, status post ICD placement, hypertension, hyperlipidemia, polycythemia vera, chronic kidney disease is here for evaluation of right lower extremity wound. Right lower extremity hematoma and a 3 cm wound. Most likely patient had a trauma developed a hematoma which is now draining and has some superimposed infection. Patient is high risk for wound infection as being diabetic and has peripheral vascular disease. We will start Keflex 500 mg 4 times a day for 7 days, we will arrange for a wound clinic referral and a quick appointment. Wound will be cleaned and will apply a dry dressing. Discussed with patient if any worsening symptoms he is to inform us or go to the emergency room. Currently he is afebrile and does not appear toxic looking. discussed with patient to keep the wound dry and will be applying a 4 x 4 gauze. Insulin-dependent DM type II.Continue with his home medication without any changes Coronary artery disease/intracardi ac thrombus/CHF/statu s post ICD placement. He is stable cardiac gutierres. He is on warfarin and INR is monitored by cardiology. Hypertension/hyper lipidemia. Blood pressure well controlled on current regimen and last lipid panel was within normal limits. 11/28/2024 Mixed hyperlipidemia (ICD-10 - E78.2) Chadwick is 74 years old gentleman with insulin-dependent DM type II, coronary artery disease, status post CABG, CHF, status post ICD placement, hypertension, hyperlipidemia, polycythemia vera, chronic kidney disease is here for evaluation of right lower extremity wound. Right lower extremity hematoma and a 3 cm wound. Most likely patient had a trauma developed a hematoma which is now draining and has some superimposed infection. Patient is high risk for wound infection as being diabetic and has peripheral vascular disease. We will start Keflex 500 mg 4 times a day for 7 days, we will arrange for a wound clinic referral and a quick appointment. Wound will be cleaned and will apply a dry dressing. Discussed with patient if any worsening symptoms he is to inform us or go to the emergency room. Currently he is afebrile and does not appear toxic looking. discussed with patient to keep the wound dry and will be applying a 4 x 4 gauze. Insulin-dependent DM type II.Continue with his home medication without any changes Coronary artery disease/intracardi ac thrombus/CHF/statu s post ICD placement. He is stable cardiac gutierres. He is on warfarin and INR is monitored by cardiology. Hypertension/hyper lipidemia. Blood pressure well controlled on current regimen and last lipid panel was within normal limits. 02/04/2024 Mixed hyperlipidemia (ICD-10 - E78.2) Mr. [...] on right medications. He has seen his home stereo equipment installer in the past 1 year. Foot care [...] and is asymptomatic. He follows up with multifocal button grinder. He is on right medications. Monitor weight [...] a month. Eye screening. He sees his home stereo equipment installer regularly. Dental screening. He sees dentist regularly. [...] this note under HIPAA compliance and under [place] law mandated for scribe services. Patient aware [...] the right medications. He follows up with insole rounder Dr. Coyle. He is seen home stereo equipment installer. Foot care discussed with the patient. Repeat [...] the right medications. He follows up with insole rounder Dr. Coyle. He is seen home stereo equipment installer. Foot care discussed with the patient. Repeat [...] Future Test Test Name Order Date Hemoglobin [id number] 07/23/2024 [id number] 07/23/2024 Albumin/Creatinine Ratio,[id number] Lipid Panel-[id number] 07/23/2024 Comp. Metabolic Panel [id number] 2024 PSA (Serial Monitor)-[id number] 07/23/2024 Next Appt Details Provider Name:DIMITRY HUGHES , 02/09/2025 03:00:00 PM, [address], [place], [address], Insurance Providers Payer Name Payer Address Payer Phone Subscriber Number Group Number Insured Name Patient Relationship to Insured Coverage Start Date Coverage End Date Medicare [address] [place] [address] [id number] Chadwick Siddiqi i Self - patient is the insured [employer] [address] [place] [address] [id number] Chadwick Siddiqi i Self - patient [...]
--- OUTSIDE RECORDS SUMMARY | 2025-01-27 16:31 | XMS_ITS | Encounter Summary ---
Author Organization [facility] Address [address] [place] [address] Phone Care Team Providers Care Pad Making Machine Operator Name Role Phone Noreen Sumner MD Primary Care Provider [phone] Reason for Visit * Reason Comments Med Refill Encounter Details Date Type Department Care Team (Late st Contact Info) Description 04/09/2021 Refill [facility] [address] [place] [id number] Linwood Coyle MD Social History Tobacco Use [...] on filedocumented in this encounter Care Teams Pad Making Machine Operator Relationship Specialty Start Date End Date Noreen Sumner MD [address] [place] [address] PCP - General Internal Medicine 05/17/21 documented as of this encounter
--- OUTSIDE RECORDS SUMMARY | 2025-01-27 16:31 | XMS_ITS | Clinical Summary ---
Author Organization [facility] Address [address] [id number] Care Team Providers Care [place] Coiling Machine Setter Name Role Phone Noreen Sumner MD Primary Care Provider [phone] Allergies No known active allergies Medications Medication [...] 100 UNIT/ML injection 32 units 0 Active [place]-3 Fatty Acids (Fish Oil) 1000 MG CAPS [...] 70 08/07/2023 8:26 AM EST Temperature 36.4 C (97.6 F) 08/07/2023 8:26 AM EST Respiratory Rate - - Oxygen Saturation 98% [...] 10/07/2020, Additional history exists Influenza Vaccine (#1) 2025 06/08/2022 RSV Adult > 60+ Yrs or (1 - 1-dose 75+ series) 2025 Hepatitis B Vaccines Aged Out No long er eligible based on patient's age to complete this topic RSV Ped < 20 months Aged Out No longe r eligible based on patient's age to complete this topic Care Teams [place] Coiling Machine Setter Relationship Specialty Start Date End Date Noreen Sumner MD [address] [place] [address] PCP - General Internal Medicine 10/25/21
== END 2025-01-27 16:49 | disposition home or self-care (01) ==
LOC: HO.HKAS 15:46
PROVIDERS: PCP Hospitalist; Visit Provider Internal Medicine Nephrology
DX: I10 Essential (primary) hypertension (principal); N18.31 Chronic kidney disease, stage 3a; E11.21 Type 2 diabetes mellitus with diabetic nephropathy; L03.115 Cellulitis of right lower limb
CPT/HCPCS: 99214

== ENCOUNTER → 2025-01-27 15:46 | Outpatient (BNVA) | payer MEDICARE, OTHER, SELFPAY | PROVIDERS: PCP Hospitalist; Visit Provider Internal Medicine Nephrology | DX: E11.22 Type 2 diabetes mellitus with diabetic chronic kidney disease (principal); I12.9 Hypertensive chronic kidney disease with stage 1 through stage 4 chronic kidney disease, or unspecified chronic kidney disease; N18.31 Chronic kidney disease, stage 3a; E11.21 Type 2 diabetes mellitus with diabetic nephropathy; L03.115 Cellulitis of right lower limb | CPT/HCPCS: 99212 ==

== ENCOUNTER 2025-04-13 07:58 | Outpatient (REF) | payer MEDICARE, OTHER, SELFPAY ==
--- OUTSIDE RECORDS SUMMARY | 2025-04-13 08:02 | XMS_ITS | Encounter Summary ---
Author Organization [facility] Address [address] [place] [address] Care Team Providers Care Cook Helper Preserves Name Role Phone Noreen Sumner MD Primary Care Provider [phone] Encounter Details Date Type Department Care Team (Late st Contact Info) Description 04/10/2025 [facility] [address] [place] [address] Sergei Fofana MD [address] [place] [address] Dr Harris [address] [place] [address] Atrial fibrillation, unspecified type (CMS/HCC V24, CMS/HCC [...] Upcoming Encounters Date Type Department Care Team (Latest Contact Info) Description 04/17/2025 [facility] [address] [place] [address] Sergei Fofana MD [address] [place] [address] Dr Iglesias [address] [place] [phone] Atrial fibrillation, unspecified type (CMS/HCC V24, CMS/HCC V28) 06/17/2025 9:00 AM EST Office Visit [facility] Hematology Oncology [address] [place] [phone] Max Butcher MD [address] [place] [address] 07/23/2025 7:40 AM EST Office Visit [facility] Cardiology [facility] [address] [place] [address] Dr Bailey [address] [place] [phone] Candace Ferro NP [address] [place] [address] Dr Iglesias [address] [place] [phone] 08/26/2025 9:00 AM EST Ancillary Procedure [facility] [address] [place] [phone] documented as of this encounter Visit Diagnoses Diagnosis Atrial fibrillation, unspecified type (CMS/HCC V24, CMS/HCC V28) Atrial fibrillation, unspecified type (CMS/HCC V24, CMS/HCC V28) Encounter for adjustment or management of cardiac device documented in this encounter Orders Lab Orders Without Results Count Last Ordered D ate First Ordered Date PROTHROMBIN TIME WITH INR 1 04/10/2025 documented in this encounter Care Teams Cook Helper Preserves Relationship Specialty Start Date End Date Noreen Sumner MD [address] [place] [address] PCP - General Internal Medicine 03/17/21 documented as of this encounter
--- OUTSIDE RECORDS SUMMARY | 2025-04-13 08:02 | XMS_ITS | Clinical Summary ---
Author Organization [facility] Address [address] [id number] Care Team Providers Care Title Coordinator Name Role Phone Noreen Sumner MD Primary Care Provider [phone] Allergies No known active allergies Medications Medication [...] 100 UNIT/ML injection 32 units 0 Active [place]-3 Fatty Acids (Fish Oil) 1000 MG CAPS [...] - PCV) 2015 COVID-19 Vaccine ( season) 2025 10/18/2021, 03/18/2021, 10/07/2020, Additional history exists Influenza Vaccine (#1) 2025 06/08/2022 RSV Adult > 60+ Yrs or (1 - 1-dose 75+ series) 2025 Hepatitis B Vaccines Aged Out No long er eligible based on patient's age to complete this topic RSV Ped < 20 months Aged Out No longe r eligible based on patient's age to complete this topic Care Teams Title Coordinator Relationship Specialty Start Date End Date Noreen Sumner MD [address] [place] [address] PCP - General Internal Medicine 10/25/21
--- OUTSIDE RECORDS SUMMARY | 2025-04-13 08:02 | XMS_ITS | Clinical Summary ---
Author Organization [facility] Address [address] [place] [address] Phone Care Team Providers Care Prep Manager Name Role Phone Noreen Sumner MD Primary Care Provider [phone] Allergies No known active allergies Medications carvediloL (COREG) 25 mg tablet Take 1 tablet (25 mg total) by mouth 2 (two) times a day with meals. 2 Active cholecalciferol (VITAMIN D-3) 125 mcg (5,000 unit) capsule Take 1 capsule (5,000 Units total) by mouth every 30 (thirty) days. Active empagliflozin (Jardiance) 25 mg tablet Take 1 tablet (25 mg total) by mouth 1 (one) time each day in the morning. Active insulin detemir (LEVEMIR) 100 unit/mL injection [...] each day. 90 tablet 3 5 Active atorvastatin (LIPITOR) 80 mg tablet TAKE 1 TABLET BY MOUTH EVERY DAY 90 tablet 2 5 Active furosemide (Lasix) 80 mg tablet Take 0.5 tablets (40 mg total) by mouth 1 (one) time each day. 45 each 3 5 01/28/20 26 Active semaglutide (Ozempic) 0.25 mg or 0.5 mg(2 mg/1.5 mL) injection pen Inject 0.25 mg under the skin every 7 (seven) days. Active insulin glargine,hum.rec. anlog (BASAGLAR KWIKPEN U-100 INSULIN SUBQ) Inject 40 Units under the skin 1 (one) time each day. Active cyanocobalamin (VITAMIN B-12) 500 mcg tablet Take 1 tablet (500 mcg total) by mouth 1 (one) time each day. Active allopurinoL (ZYLOPRIM) 100 mg tablet Take 1 tablet (100 mg total) by mouth 1 (one) time each day. Active levothyroxine sodium (TIROSINT) 25 mcg capsule Take 1 capsule (25 mcg total) by mouth 1 (one) time each day. 90 capsule 2 5 Active Active Problems Problem Noted Date Diagnosed Date Aortic stenosis 01/27/2025 Assessment & Plan (01/27/2025 1:01 PM EDT): Status post aortic valve replacement gradient is stable across the valve. Patient was again informed about the need for endocarditis prophylaxis repeat echocardiogram in the future Cerebrovascular accident (CVA) ([facility] V24, [facility] V28) 01/27/2025 Heart murmur 01/27/2025 Left bundle branch block (LBBB) 01/27/2025 LV dysfunction 01/27/2025 Mixed hyperlipidemia 01/27/2025 Atherosclerosis of coronary artery bypass graft(s) without angina pectoris 01/27/2025 Coronary artery disease invo lving [place] coronary artery of [place] heart without angina pectoris 07/29/2024 Assessment & [...] (heart failure with re duced ejection fraction) ([facility] V24, [facility] V28) 07/29/2024 Assessment & Plan (07/29/2024 5:18 [...] based on evaluation no arrhythmias documented Afib ([facility] V24, [facility] V28) 05/22/2024 Assessment & Plan (01/27/2025 1:01 PM EDT): Patient's in sinus rhythm at the present time remains chronically anticoagulated without bleeding issues Orders: ECG 12 lead Assessment & Plan (07/29/2024 5:18 PM EST): [...] free T4; Future Hepatic function panel; Future PVC (premature ventricular contraction) 06/25/20 Overview (01/27/2025): Last Assessment & Plan: Patient has history of frequent PVCs captured on device monitoring. He is on maximum dose carvedilol 25 mg twice a day. He was seen by Dr. Pickard recently in consultation and was started on amiodarone load. EKG today is stable. I have not had any further alerts from the device clinic since he started amiodarone. We will update labs and arrange for pulmonary function testing for close surveillance. Amiodarone is intended for use only in patients with indicated life-threatening arrhythmias because its use is accompanied by substantial toxicity. We discussed the risks including risk for pulmonary toxicity, hepatotoxicity, risk for worsening arrhythmias and risk for thyroid impairment. We will monitor the patient for these conditions throughout treatment. Patient was also warned about the risk for photosensitivity and solar dermatitis. Patient was advised to wear sunscreen and wear protective clothing including a hat when in direct sunlight. Atrial fibrillation (CMS/HCC V24, CMS/HCC V28) 0 09/01/2022 Overview (01/27/2025): Last Assessment & Plan: Patient remains on amiodarone therapy. Patient has had no evidence of breakthrough A-fib on interrogation of his device. Patient's liver and thyroid profiles been stable.. The patient will be sent for repeat thyroid and comprehensive metabolic profile Cardiac pacemaker in situ 07/17/2022 Assessment & Plan (01/27/2025 1:01 PM EDT): ICD in place no evidence of arrhythmias documented on interrogation Intracardiac thrombosis, not elsewhere classifie d 07/17/2022 Chronic ischemic heart disease 03/16/2021 Overview (01/27/2025): Last Assessment & Plan: Patient with a history of coronary disease status post bypass in the past. In 2017 the patient had no evidence of graft compromise. Prior to valve replacement surgery. Hypertension 01/13/2021 Benign hypertensive renal disease 01/11/2021 Benign essential hypertension 09/10/2020 Overview (01/27/2025): Last Assessment & Plan: Blood pressure is well-managed at this time no room for additional medical management for his HFrEF. Bicuspid aortic valve 09/10/2020 Overview (01/27/2025): Bicuspid aortic valve Cardiomyopathy (CMS/HCC V24, CMS/HCC V28) 2020 Overview (01/27/2025): Last Assessment & Plan: Patient has history of HFrEF-EF 25-30 %, ischemic cardiomyopathy with NYHA class II symptoms. He has a [employer] dual-chamber biventricular AICD in place. He denies any clinical symptoms of heart failure and he is euvolemic on physical examination. He is tolerating Entresto. He continues on maximum dose carvedilol and furosemide 40 mg once a day. He is also on empagliflozin. His creatinine has been stable 1.8 with a potassium of 4.2. Patient advised to seek emergency medical attention by calling 911 if they were to develop severe dyspnea, chest pain that did not resolve with rest or nitroglycerin, or if they were to faint. I've asked the patient to call if they develop worsening symptoms of heart failure such as increased shortness of breath, new or worsening cough, increased swelling in the legs or ankles, or weight gain of more than 2 pounds in one day or 4 pounds in one week. Assessment & Plan (01/27/2025 1:01 PM EDT): Dilated cardiomyopathy on guideline directed therapy with little room to add additional medical management at this time patient is not in heart failure he did have some swelling in the right lower extremity and has a small superficial wound with no evidence of infection was referred to the wound clinic but was turned down for care. Patient's been told to contact us if he develops any signs of infection of the area he has no claudication symptoms in the lower extremities Pure hypercholesterolemia 09/10/2020 Overview (01/27/2025): Last Assessment & Plan: Last LDL was 57. Goal <70. Continue with statin as prescribed. CAD (coronary artery disease) 09/10/2020 Overview (01/27/2025): Last Assessment & Plan: History of coronary artery disease status post three-vessel coronary bypass which included PARRA to the LAD, saphenous vein graft to the obtuse marginal, saphenous vein graft to the PDA in 2009. 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 He is active without any exertional anginal symptoms. He continues on cardioprotective medical therapy with aspirin, carvedilol and atorvastatin. I have reviewed with the patient the importance of a heart healthy lifestyle which includes eating a low-fat low-salt diet, getting regular exercise, maintaining a healthy weight, not smoking, and following up with routine medical care. History of aortic valve replacement 09/10/2020 Overview (01/27/2025): 2017 status post aortic valve replacement with [...] patient was instructed regarding appropriate antibiotic prophylaxis. Embolism and thrombosis of u nspecified artery ([facility] V24, [facility] V28) 05/31/2020 Overview (01/27/2025): Last Assessment & Plan: Apical thrombus resolved on most recent echocardiogram. Continue with warfarin for anticoagulation in light on persistent LVEF of 20-25%. Left ventricular apical thrombus 05/31/2020 Overview (01/27/2025): Last Assessment & Plan: Patient remains chronically anticoagulated with warfarin secondary to the finding of an apical thrombus on echocardiography in the past. Most recent echocardiograms have shown no evidence of thrombus. Obstruction of urinary tract 02/14/2017 Implantable cardioverter-defibrillator (ICD) in situ 07/28/2010 Implantable cardioverter-defibrillator (ICD) in situ 07/28/2010 Encounters Date Type Department Care Team Description 04/10/2025 Lab [facility] [address] [place] [address] Sergei Painter MD Atrial fibrillation, unspecified type (CMS/HCC V24, CMS/HCC V28) 04/03/2025 Lab [facility] [address] [place] [address] Sergei Painter MD Atrial fibrillation, unspecified type (CMS/HCC V24, CMS/HCC V28) 03/31/2025 Anticoagulation - Warfarin Visit [facility] [address] [place] [address] Sergei Painter MD Atrial fibrillation, unspecified type (CMS/HCC V24, CMS/HCC V28) (Primary Dx) 03/27/2025 Lab [facility] [address] [place] [address] Sergei Painter MD Atrial fibrillation, unspecified type (CMS/HCC V24, CMS/HCC V28) 03/20/2025 Lab [facility] [address] [place] [address] Sergei Painter MD Atrial fibrillation, unspecified type (CMS/HCC V24, CMS/HCC V28) 03/19/2025 5:15 AM EDT Ancillary Procedure [facility] - [address] [place] [id number] 03/13/2025 Lab [facility] [address] [place] [address] Sergei Painter MD Atrial fibrillation, unspecified type (CMS/HCC V24, CMS/HCC V28) 03/06/2025 Lab [facility] [address] [facility] [address] [place] [address] Sergei Painter MD Atrial fibrillation, unspecified type (CMS/HCC V24, CMS/HCC V28) 03/02/2025 Anticoagulation - Warfarin Visit [facility] [address] [facility] [address] [place] [address] Sergei Painter MD Atrial fibrillation, unspecified type (CMS/HCC V24, CMS/HCC V28) (Primary Dx) 02/27/2025 5:15 PM EDT Ancillary Procedure [facility] - [address] [place] [address] 02/27/2025 Lab [facility] [address] [facility] [address] [place] [address] Sergei Painter MD Atrial fibrillation, unspecified type (CMS/HCC V24, CMS/HCC V28) 02/24/2025 Telephone [facility] [address] [facility] [address] [place] [address] Sergei Painter MD 02/20/2025 Lab [facility] [address] [place] [address] Sergei Painter MD Atrial fibrillation, unspecified type (CMS/HCC V24, CMS/HCC V28) 02/13/2025 Lab [facility] [address] [place] [address] Sergei Painter MD Atrial fibrillation, unspecified type (CMS/HCC V24, CMS/HCC V28) 02/06/2025 Lab [facility] [address] [place] [address] Sergei Painter MD Atrial fibrillation, unspecified type (CMS/HCC V24, CMS/HCC V28) 02/03/2025 Anticoagulation - Warfarin Visit [facility] [address] [place] [address] Sergei Painter MD Atrial fibrillation, unspecified type (CMS/HCC V24, CMS/HCC V28) (Primary Dx) 01/30/2025 Lab [facility] [address] [place] [address] Sergei Painter MD Atrial fibrillation, unspecified type (CMS/HCC V24, CMS/HCC V28) 01/27/2025 8:50 AM EDT Office Visit [facility] [address] [place] [address] Sergei Painter MD Atrial fibrillation, unspecified type (CMS/HCC V24, CMS/HCC V28) (Primary Dx); Dilated cardiomyopathy (CMS/HCC V24, CMS/HCC V28); Nonrheumatic aortic valve stenosis; Cardiac pacemaker in situ 01/23/2025 Lab [facility] [address] [place] [address] Sergei Painter MD Atrial fibrillation, unspecified type (CMS/HCC V24, CMS/HCC V28) 01/21/2025 10:20 AM EDT Ancillary Procedure [facility] - [address] [place] [id number] 01/16/2025 Lab [facility] [address] [place] [address] Sergei Painter MD Atrial fibrillation, unspecified type (CMS/HCC V24, CMS/HCC V28) from Last 3 Months Surgical History Surgery Date Site/Laterality Comments CORONARY ARTERY BYPASS GRAFT PROCEDURE: HISTORICAL CABG CARDIAC SURGERY PROCEDURE: HISTORICAL HEART SURGERY(ASD,VSD,VALVES) CARDIAC CATHETERIZATION PROCEDURE: HISTORICAL CARDIAC CATH Medical History Medical History Date Comments Chronic ischemic heart disease D X:Chronic 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, co ntrolled, with complications (CMS/HCC V24, CMS/HCC V28) DX:Diabetes mellitus type 2, controlled, with [...] Sign Reading Time Taken Comments Blood Pressure 108/60 01/27/2025 8:59 AM EDT Pulse 71 01/27/2025 8:59 AM EDT Temperature 36.2 C (97.2 F) 06/16/2024 8:55 AM EST Respiratory Rate - - Oxygen Saturation 97% 01/27/2025 8:59 AM EDT Inhaled Oxygen Concentration - - Weight 85.7 kg (188 lb 14.4 oz) 01/27/2025 8:59 AM EDT Height 172.7 cm (5' 8 ) 09/04/2024 7:50 AM EST Body Mass Index 28.72 09/04/2024 7:50 AM EST Plan of Treatment Upcoming Encounters Date Type Department Care Team (Latest Contact Info) Description 04/17/2025 Lab [facility] [address] [place] [address] Sergei Painter MD [address] [place] [address] [address] [place] [phone] Atrial fibrillation, unspecified type (CMS/[facility] V24, CMS/[facility] V28) 06/17/2025 9:00 AM EST Office Visit [facility] Oncology [address] [place] [phone] Max Butcher MD [address] [place] [address] 07/23/2025 7:40 AM EST Office Visit [facility] [address] [place] [address] Candace Ferro NP [address] [place] [address] [address] [place] [phone] 08/26/2025 9:00 AM EST Ancillary Procedure [facility] - [address] [facility] [address] [place] [phone] Health Maintenance Due Date Last Done Comments Colorectal Cancer Screening: Colonoscopy 1950 Diabetes: Annual GFR (Glomerular Filtration Rate) 1950 Diabetes: Annual Foot Exam 1960 Diabetes: Annual Retina Eye Exam 1960 Pneumococcal Vaccine: 50+ Years (1 of 2 - PCV) 1969 Zoster Vaccines (1 of 2) 2000 RSV Immunization Adult Patients (1 - Risk 60-74 years 1-dose series) 2010 Abdominal Aortic Aneurysm (AAA) Screen 06/17/2022 Falls Risk Assessment 06/17/2022 Hepatitis C Screening 06/17/2022 Social Influencers of Health Screening 06/17/2022 Hypertension/CHF/CAD Annual BMP Blood Test 06/18/2022 Diabetes: Annual Urine Albumin-Creatinine Ratio (uACR) 06/24/2022 Diabetes: Blood Sugar Control Test (HGBA1C) 06/24/2022 Medicare Annual Wellness Visit 12/22/2023 12/21/2022 Depression Screening 07/09/2024 COVID-19 Vaccine ( season) 2025 04/13/2023, 05/23/2022, 10/18/2021, Additional history exists Influenza Vaccine (#1) 2025 04/13/2023, 2021 Cholesterol Screening (Lipid Panel) 07/31/2029 [...] topic Medical Devices Implanted Type Area Oil Pipe Inspector Helper Device Identifier Shelf Expiration Date Model / Serial / Lot Abbt-Stju 3357-40q Unify Assura(Tm) [id number] Implanted:01/06 by Steve Pickard MD (Quantity not on file) Cardiac TELESALES CONSULTANT-D ICD Left: Chest [facility] 3357-40Q UNIFY ASSURA(TM ) / [id number] / Abbt-Stju Unify Assura 3357-40q [id number] Implanted:01/06 (Quantity not on file) Cardiac TELESALES CONSULTANT-D ICD [facility] UNIFY ASSURA 3357-40Q / [id number] / Procedures Procedure Name Priority Date/Time Associated Diagnosis Comments CBC WITH AUTO DIFFERENTIAL Routine 03/31/2025 10:01 AM EDT PROTHROMBIN TIME WITH INR Routine 03/31/2025 10:01 AM EDT Atrial fibrillation, unspecified type (CMS/HCC V24, CMS/HCC V28) CARDIAC DEVICE CHECK- REMOTE- MURJ Routine 03/19/2025 5:10 AM EDT CBC WITH AUTO DIFFERENTIAL Routine 03/02/2025 9:06 AM EDT PROTHROMBIN TIME WITH INR Routine 03/02/2025 9:06 AM EDT Atrial fibrillation, unspecified type (CMS/HCC V24, CMS/HCC V28) CARDIAC DEVICE CHECK- REMOTE- MURJ Routine 02/27/2025 5:11 PM EDT CBC WITH AUTO DIFFERENTIAL Routine 01/30/2025 11:26 AM EDT PROTHROMBIN TIME WITH INR Routine 01/30/2025 11:26 AM EDT Atrial fibrillation, unspecified type (CMS/HCC V24, CMS/HCC V28) ECG 12-LEAD Routine 01/27/2025 9:20 AM EDT Atrial fibrillation, unspecified type (CMS/HCC V24, CMS/HCC V28) CARDIAC DEVICE CHECK- REMOTE- MURJ Routine 01/21/2025 10:17 AM EDT LIPID PANEL WITH LDL AND HDL RATIO Routine 07/31/2024 8:11 AM EST from Last 3 Months or Most Recently Relevant to Health Maintenance Results * (ABNORMAL) CBC auto differential (03/31/2025 10:01 AM EDT) Only the most recent of3 resultswithin the time period is included. Pathologist [facility] WBC 9.4 4.0 - 11.0 K/MM3 [facility] 1 RBC 5.21 4.70 - 6.10 M/MM3 [facility] 1 Hemoglobin 14.6 13.7 - 17.1 GM/DL [facility] 1 Hematocrit 47.0 40.5 - 50.0 % [facility] 1 MCV 90.2 80.0 - 94.0 FL [facility] 1 MCH 28.0 27.0 - 34.0 PG [facility] 1 MCHC 31.1(L) 33.0 - 37.0 g/dL [facility] 1 RDW 54.4(H) <47.0 FL [facility] 1 Platelets 114(L) 150 - 460 K/MM3 [facility] 1 Neutrophils 74.9 44 - 76 % [facility] 1 Lymphocytes 13.4(L) 15 - 43 % [facility] 1 Monocytes 7.7 4.5 - 10.5 % [facility] 1 Eosinophils 3.0 0 - 6 % [facility] 1 Basophils 0.6 0 - 2 % [facility] 1 Neutrophils Absolute 7.1(H) 1.3 - 7.0 K/MM3 [facility] 1 Lymphocytes Absolute 1.3 0.8 - 3.1 K/MM3 [facility] 1 Monocytes Absolute 0.7 0.4 - 1.3 K/MM3 [facility] 1 Eosinophils Absolute 0.3 0.0 - 0.4 K/MM3 [facility] 1 Basophils Absolute 0.1 0.0 - 0.1 K/MM3 [facility] 1 Immature Granulocytes Relative 0.4 % [facility] 1 Immature Grans (Abs) 0.0 K/MM3 [facility] 1 Nucleated RBC 0.0 #/100 WBC'S [facility] 1 Hematology Comments: Comment [facility] 1 Comment: AUTOMATED DIFFERENTIAL MPV 11.6 FL 9.4-12.4 N ABS. NRBC 0.0 K/MM3 N 03/31/2025 10:0 1 AM EDT 03/31/2025 Narrative [facility] 1 - 03/31/2025 11:03 AM EDT Performed at: [address] [place] [id number] Patient Account Analyst: Taco Pat MD, Phone: [phone] us Sergei Painter MD LAB BLOOD ORDERABLES Final Res ult [facility] 1 * (ABNORMAL) Prothrombin time with INR (03/31/2025 10:01 AM EDT) Only the most recent of3 resultswithin the time period is included. [facility] International Normalized Ratio (INR) 2.2(H) 0.9 - 1.1 [facility] 1 Prothrombin Time 21.2(H) 9.2 - 11.4 SEC [facility] 1 Blood Venous blood specimen / Unknown 03/31/2025 10:01 AM EDT 03/31/2025 Narrative [facility] 1 - 03/31/2025 11:03 AM EDT Performed at: [address] [place] [id number] Patient Account Analyst: Taco Pat MD, Phone: [phone] us Sergei Painter MD LAB BLOOD ORDERABLES Final Res ult [facility] 1 * Cardiac device check - Remote- MURJ (03/19/2025 5:10 AM EDT) Only the most recent of3 resultswithin the time period is included. Date Time Interrogation Session [id number] CV DEVICE CHECK Type Interrogation Session Remote Scheduled CV DEVICE CHECK Implantable Pulse Generator Oil Pipe Inspector Helper [employer] CV DEVICE CHECK Implantable Pulse Generator Type TELESALES CONSULTANT-D CV DEVICE CHECK Implantable Pulse Generator Model 3357-40Q Anywhere to GoModern Meadow(TM) CV DEVICE CHECK Implantable Pulse Generator Serial Number [id number] CV DEVICE CHECK Implantable Pulse Generator Implant Date [id number] CV DEVICE CHECK Battery Remaining Percentage 10.00 CV DEVICE CHECK Battery Remaining Longevity 8.0 CV DEVICE CHECK Battery Voltage 2.680 CV D EVICE CHECK Battery BROKERAGE MANAGER Trigger 2.590 CV DEVICE CHECK Battery Status Middle of Service CV DEVICE CHECK Capacitor Charge Time 9.900 CV DEVICE CHECK Tashi Statistic RA Percent Paced 56.00 CV DEVICE CHECK Tashi Statistic RV Percent Paced 95.00 CV DEVICE CHECK TELESALES CONSULTANT Statistic TELESALES CONSULTANT Percent Paced 94.00 CV DEVICE CHECK Atrial Tachy Statistic AT/AF [place] Percent 1.00 CV DEVICE CHECK Lead Channel Sensing Intrinsic Amplitude 4.300 CV DEVICE CHECK Lead Channel Setting Sensing Sensitivity 0.30 CV DEVICE CHECK Lead Channel Impedance Value 290 CV DEVICE CHECK Lead Channel Pacing Threshold Amplitude 0.750 CV DEVICE CHECK Lead Channel Pacing Threshold Pulse Width 0.5 CV DEVICE CHECK Lead Channel RA Pacing Threshold Date 2025-03-17 CV DEVICE CHECK Lead Channel Setting Pacing [...] CHECK Lead Channel RV Pacing Threshold Date 2025-03-17 CV DEVICE CHECK Lead Channel Setting Pacing Amplitude 2.375 CV DEVICE CHECK Lead Channel Setting Pacing Pulse Width 0.5 CV DEVICE CHECK Lead Channel Impedance Value 290 CV DEVICE CHECK Lead Channel Pacing Threshold Amplitude 1.000 CV DEVICE CHECK Lead Channel Pacing Threshold Pulse Width 0.5 CV DEVICE CHECK Lead Channel Pacing Threshold Date 2025-03-17 CV DEVICE CHECK Lead Channel Setting Pacing Amplitude 2.000 CV DEVICE CHECK Lead Channel Setting Pacing Pulse Width 0.5 CV DEVICE CHECK Tashi Setting Mode (NBG Code) DDD CV DEVICE CHECK Ventricular chambers paced during TELESALES CONSULTANT pacing. BiV CV DEVICE CHECK Tashi Setting Lower Rate Limit 70 CV DEVICE CHECK Tashi Setting AT Mode Switch Rate 180 CV DEVICE CHECK Tashi Setting Maximum Tracking Rate 120 CV DEVICE CHECK Tashi Setting Maximum Sensor Rate 120 CV DEVICE CHECK Tashi Setting PAV Delay 150 CV DEVICE CHECK Tashi Setting JOHN Delay 120 CV DEVICE CHECK TELESALES CONSULTANT LV-RV Delay 20 CV D EVICE CHECK [...] 150 CV DEVICE CHECK Therapies 3 x Burst+Scan,25.0J,3 6.0J,40.0J x 2 CV DEVICE CHECK Zone Setting Status On CV DEVICE CHECK Zone ID 2 CV DEVICE CHECK Zone Setting Type Category VF CV DEVICE CHECK Rate 200 CV DEVICE CHECK Therapies 36.0J,36.0J,40.0J, 40.0J x 4 CV DEVICE CHECK Zone Setting Status On CV DEVICE CHECK Zone ID 3 CV DEVICE CHECK Date of Service 2025-04-01 CV DEVICE CHECK Anatomical Region Laterality Modality Device Interroga tion 03/17/2025 2:00 AM EDT Impressions 03/18/2025 8:29 PM EDT Heart Failure Diagnostic: Stable * Heart failure diagnostics assessed through the device * Status: Stable * No overt HF present Narrative Procedure Note Steve Pickard MD - 03/19/2025 IMPRESSION: Heart Failure Diagnostic: Stable * Heart failure diagnostics assessed through the device * Status: Stable * No overt HF present Steve Pickard MD CV IMPLANTABLE CARDIAC DEV ICE PROCEDURES Final Result * ECG 12 lead (01/27/2025 9:20 AM EDT) Ventricular Rate ECG 71 BPM GEMUSE Atrial Rate 71 BPM GEMUSE P-R Interval 140 ms GEMUSE QRS Duration 222 ms GEMUSE Q-T Interval 554 ms GEMUSE QTc 602 ms GEMUSE P Wave Willow 28 degrees GEMUSE R Willow -74 degrees GEMUSE T Willow 108 degrees GEMUSE ECG Interpretation AV dual-paced rhythm with occasional ventricular-pa karlee complexes Abnormal ECG When compared with ECG of 29-JUL-2024 14:11, Premature ventricular complexes are no longer Present Confirmed by José PAINTER JAMES ([id number]) on 01/27/2025 12:40:38 PM GEMUSE 01/27/2025 9:20 AM EDT 01/27/2025 12:40 PM EDT us Sergei Painter MD ECG ORDERABLES Final Result GEMUSE * (ABNORMAL) Lipid panel with LDL and [...] 0.0 - 3.6 ratio [facility] 1 Comment: LDL/HDL Ratio Men Women 1/2 Avg.Risk 1.0 1.5 Avg.Risk 3.6 3.2 2X Avg.Risk 6.2 5.0 3X Avg.Risk 8.0 6.1 07/31/2024 8:11 AM EST 07/31/2024 Narrative [facility] 1 - 08/01/2024 4:06 AM EST Performed at: - [facility] [address] [id number] Patient Account Analyst: Kate Gann MD, Phone: [phone] us Sergei Painter MD LAB BLOOD ORDERABLES Final Res ult [facility] 1 from Last 3 Months or Most Recently Relevant to Health Maintenance Insurance MEDICARE [facility] Care Teams Prep Manager Relationship Specialty Start Date End Date Noreen Sumner MD [address] [place] [address] PCP - General Internal Medicine 03/17/21
--- OUTSIDE RECORDS SUMMARY | 2025-04-13 08:02 | XMS_ITS | Clinical Summary ---
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
--- OUTSIDE RECORDS SUMMARY | 2025-04-13 08:02 | XMS_ITS | Patient Health Record ---
Author Organization [email or web address] Address [address] [place] [address] [address] [place] [address] Care Team Providers Care Chiller Operator Name Role Phone DIMITRY HUGHES Primary Care Provider Garth King Unavailable [phone] Allergies No Known Allergies Results Component Value Reference Range Notes Hemoglobin A1c Reviewed date:07/20/2024 07:20:32 PM Interpretation: Performing Lab:[facility], [address] [place] [address], Phone - [phone], Director - [facility] Notes/Report: Hemoglobin A1c 6.3 <5.7: Decreased risk for diabetes 5.7 - 6.4: Increased risk for diabetes >6.4: Ongoing Hyperglycemia of any cause <7.0: Glycemic control for adults with diabetes Reference Range: [place] Diabetes Association (ADA) Guidelines: Estimated Average Glucose 134 PSA (Serial Monitor)-[id number] Reviewed date:02/02/2025 04:44:21 PM Interpretation: Performing Lab:[facility], [address] [place] [address], Phone - [phone], Director - Evin Notes/Report: Prostate Specific Ag 2.6 0.0-4.0 ng/mL Kurt ECLIA methodology. . According to the [place] [employer], Serum PSA should decrease and remain at undetectable levels after radical prostatectomy. The AUA defines biochemical recurrence as an initial PSA value 0.2 ng/mL or greater followed by a subsequent confirmatory PSA value 0.2 ng/mL or greater. Values obtained with different assay methods or kits cannot be used interchangeably. Results cannot be interpreted as absolute evidence of the presence or absence of malignant disease. Comp. Metabolic Panel [id number] Reviewed date:02/02/2025 04:44:47 PM Interpretation: Performing Lab:[facility], Phone - [phone], Director - MDJodry Notes/Report: Glucose 105 70-99 mg/dL BUN 36 8-27 mg/dL Creatinine 1.99 0.76-1.27 mg/dL eGFR 35 >59 mL/min/1.73 BUN/Creatinine Ratio 18 10-24 Sodium 141 134-144 mmol/L Potassium 4.7 3.5-5.2 mmol/L Chloride 108 96-106 mmol/L Carbon Dioxide, Total 16 20-29 mmol/L Calcium 9.1 8.6-10.2 mg/dL Protein, Total 6.6 6.0-8.5 g/dL Albumin 4.3 3.8-4.8 g/dL Globulin, Total 2.3 1.5-4.5 g/dL Bilirubin, Total 0.6 0.0-1.2 mg/dL Alkaline Phosphatase 98 44-121 IU/L AST (SGOT) 24 0-40 IU/L ALT (SGPT) 24 0-44 IU/L Lipid Panel-[id number] Reviewed date:02/02/2025 04:44:43 PM Interpretation: Performing Lab:[facility], [address] [place] [address], Phone - [phone], Director - MDJodry Notes/Report: Cholesterol, Total 104 100-199 mg/dL Triglycerides 61 0-149 mg/dL HDL Cholesterol 33 >39 mg/dL VLDL Cholesterol Travon 14 5-40 mg/dL LDL Chol Calc (NIH) 57 0-99 mg/dL Albumin/Creatinine Ratio,Uri ne-[id number] Reviewed date:02/02/2025 04:44:39 PM Interpretation: Performing Lab:[facility], [address] [place] [address], Phone - [phone], Director - MDJodry Notes/Report: Creatinine, Urine 65.1 Not Estab. mg/dL Albumin, Urine 40.9 Not Estab. ug/mL Alb/Creat Ratio 63 0-29 mg/g creat Normal: 0 - 29 Moderately increased: 30 - 300 Severely increased: >300 TSH-[id number] Reviewed date:02/02/2025 04:44:17 PM Interpretation: Performing Lab:[facility], [address] [place] [address], Phone - [phone], Director - MDJodry Notes/Report: TSH 13.200 0.450-4.500 uIU/mL Hemoglobin D4w-[id number] Reviewed date:02/02/2025 04:44:24 PM Interpretation: Performing Lab:[facility], [address], [place], Phone - [phone], Director - Evin Notes/Report: Hemoglobin A1c 6.3 4.8-5.6 % . Prediabetes: 5.7 - 6.4 Diabetes: >6.4 Glycemic control for adults with diabetes: <7.0 Reason For Referral Reason Evaluation and manag ement Diagnosis 1 Type 2 diabetes shaun itus with other skin ulcer (E11.622) Referral Organization [facility] Referring Provider First Name Garth Referring Provider Last Name Christine Referring Provider Speciality Internal M edicine Referred Provider Specialty Other Medica l Care General Notes Referral sent to [facility] - office will call pt for scheduling.Nicholas Latraya 11/28/2024 11:42:49 AM > Referral Priority Routine Medications Medication SIG (Take, Route, Frequency, Duration) Notes Start Date End Date Status Allopurinol 100 MG 1 tablet Orally Once a day Active Furosemide 40 MG 1 TABLET Orally Once a day; Duration: 90 days Active BD Pen Needle Areli 2nd Gen 32G X 4 MM USE ONCE DAILY; Duration: 30 Active Levothyroxine Sodium 25 MCG 1 tablet in the morning on an empty stomach Orally Once a day Active Lantus 100 UNIT/ML 40 units in the evening Subcutaneous Once a day or as directed; Duration: 30 days 09/11/2023 Not-Taking Vitamin B12 Active Clotrimazole 1 % 1 application Externally Twice a day; Duration: 28 days 12/21/2022 Not-Taking Fish Oil 1000 MG as directed Orally 3 capsules daily Active Jardiance 25 MG 1 tablet Orally Once a day Active Prevnar 20 0.5 ML as directed Intramuscular 1; Duration: 365 days 12/19/2021 Not-Taking Warfarin Sodium 5 MG as directed Orally Daily Followed by cardiology Active Entresto 24-26 MG 1 tablet Orally Twice a day Active Carvedilol 25 MG TAKE 1 TABLET BY MOUTH TWICE A DAY WITH FOOD FOR 90 DAYS; Duration: 90 Active Amiodarone HCl 100 MG 1 tablet Orally Twice a day Active Ozempic (0.25 or 0.5 MG/DOSE) 2 MG/1.5ML 0.25 mg Subcutaneous once a week; Duration: 30 days Active Atorvastatin Calcium 80 MG 1 tablet Orally Once a day Active Basaglar KwikPen 100 UNIT/ML Inject 40 units Subcutaneous daily; Duration: 30 days Active Aspirin 81 MG 1 tablet Orally Once a day Active glipiZIDE ER 5 MG TAKE 1 TABLET BY MOUTH EVERY DAY WITH BREAKFAST; Duration: 30 Active Ozempic (0.25 or 0.5 MG/DOSE) 2 MG/3ML INJECT 0.25 MG SUBCUTANEOUS ONCE A WEEK FOR 30 DAYS; Duration: 28 Active Immunizations Vaccine Route Administration Date Status [...] Homosexual Homosexual Homosexual Homosexual Homosexual Homosexual Homosexual Homosexual Problems Problem Type SNOMED Code ICD Code Onset Dates Problem Status W/U Status Risk Notes Problem Polycythemia vera (400811662) Polycythemia vera (D45) Active confirmed Problem Hypothyroidism (02283890) Hypothyroidism, unspecified (E03.9) Active confirmed Problem Secondary diabetes mellitus (2689291) Diabetes mellitus due to underlying condition with hyperglycemia (E08.65) Active confirmed Problem Skin ulcer associated with diabetes mellitus (524139702) Type 2 diabetes mellitus with other skin ulcer (E11.622) Active confirmed Problem Disorder due to type 2 diabetes mellitus (014791839) Type 2 diabetes mellitus with unspecified complications (E11.8) Active confirmed Problem Mixed hyperlipidemia (832059325) Mixed hyperlipidemia (E78.2) Active confirmed Problem Essential hypertension (80913755) Essential (primary) hypertension (I10) Active confirmed Problem Chronic kidney disease due to hypertension (331365610266532) Hypertensive chronic kidney disease with stage 1 through stage 4 chronic kidney disease, or unspecified chronic kidney disease (I12.9) Active confirmed Problem Atherosclerotic heart disease of [place] coronary artery without angina pectoris (546071711796989) Atherosclerotic heart disease of [place] coronary artery without angina pectoris (I25.10) Active confirmed Problem 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 (623175185) 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) Active confirmed Problem Chronic systolic heart failure (375815647) Chronic systolic (congestive) heart failure (I50.22) Active confirmed Problem Endocardial thrombosis (13910526) Intracardiac thrombosis, 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 confirmed Problem Cardiac pacemaker in situ (077822630) Presence of cardiac pacemaker (Z95.0) Active confirmed Problem Automatic implantable cardiac defibrillator in situ (766907002) Presence of automatic (implantable) cardiac defibrillator (Z95.810) Active confirmed Problem Chronic kidney disease stage 3B (disorder) (913283229) Chronic kidney disease, stage 3b (N18.32) Active confirmed Vital Signs Heart Rate 70 /min 02/09/2025 Temperature 97.3 degrees Fahrenheit 02/09/2025 Oximetry 96 % 02/09/2025 Blood pressure diastolic 74 mm Hg 02/09/2025 Height 67 in 02/09/2025 Blood pressure systolic 120 mm Hg 02/09/2025 Weight 190.7 lbs 02/09/2025 BMI 29.86 kg/m2 02/09/2025 Encounters Encounter Location Date Provider Diagnosis [address] [place] [address] 07/23/2024 DIMITRY HUGHES Type 2 diabetes shaun itus with unspecified complications E11.8 ; Atherosclerosis of coronary artery bypass graft(s) without angina pectoris I25.810 ; Intracardiac thrombosis, not elsewhere classified I51.3 ; Essential (primary) hypertension I10 ; Mixed hyperlipidemia E78.2 and Encounter for screening for malignant neoplasm of prostate Z12.[address] [place] [address] 11/28/2024 Garth Christine Type 2 diabetes shaun itus with other skin ulcer E11.622 ; Diabetes mellitus due to underlying condition with hyperglycemia E08.65 ; Atherosclerosis of coronary artery bypass graft(s) without angina pectoris I25.810 ; Essential (primary) hypertension I10 and Mixed hyperlipidemia E78.[address] [place] [address] 02/09/2025 MORAES GUL Type 2 diabetes shaun itus with other skin ulcer E11.622 ; Encounter for general adult medical examination without abnormal findings Z00.00 ; Diabetes mellitus due to underlying condition with hyperglycemia E08.65 ; Atherosclerosis of coronary artery bypass graft(s) without angina pectoris I25.810 ; Essential (primary) hypertension I10 ; Mixed hyperlipidemia E78.2 ; Chronic kidney disease, stage 3b N18.32 ; Hypertensive chronic kidney disease with stage 1 through stage 4 chronic kidney disease, or unspecified chronic kidney disease I12.9 and Hypothyroidism, unspecified E03.[address] [place] [address] 05/26/2024 DIMITRY HUGHES Type 2 diabetes shaun itus with unspecified complications E11.[address] [place] [address] 08/06/[address] [place] [address] 11/25/[address] [place] [address] 11/28/[address] [place] [address] 03/23/2025 DIMITRY HUGHES Assessments Encounter Date Diagnosis (ICD Code) Assessment Notes Treatment Notes Treatment Clinical Notes Section Notes 11/28/2024 Type 2 diabetes mellitus with other skin ulcer (ICD-10 - E11.622) Chadwick is 74 years old gentleman with insulin-dependen t DM type II, coronary artery disease, status [...] be applying a 4 x 4 gauze. Insulin-dependen t DM type II.Continue with his home medication without any changes Coronary artery disease/intracar diac thrombus/CHF/sta tus post ICD placement. He is stable cardiac gutierres. He is on warfarin and INR is monitored by cardiology. Hypertension/hyp erlipidemia. Blood pressure well controlled on current regimen and last lipid panel was within normal limits. 02/09/2025 Type 2 diabetes mellitus with other skin ulcer (ICD-10 - E11.622) Chadwick is 74 years old gentleman with insulin-dependen t DM type II, coronary artery disease, status post CABG, CHF, status post ICD placement, hypertension, hyperlipidemia, polycythemia vera, chronic kidney disease is here for adult physical Insulin-dependen t DM type II.His fasting sugars and A1c is within reasonable range. Continue current regimen and he is on atorvastatin 80 mg daily. He has seen stereo map plotter operator. Foot care were discussed and he sees podiatry Dr. Courtney on regular basis. Coronary artery disease/intracar diac thrombus/CHF/sta tus post ICD placement. He is stable cardiac gutierres. He is on warfarin and INR is monitored by cardiology. Hypertension/hyp erlipidemia. Blood pressure well controlled on current regimen and last lipid panel was within normal limits. Chronic kidney disease stage IIIb. He follows up with Dr. Coyle. He is stable and he is on Lasix 40 mg daily. 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 He started on levothyroxine 25 mcg and he will check TSH/T4 in 4-6 weeks. He is up to date on age specific screening. He is full code and his brother is his healthcare proxy. 11/28/2024 Diabetes mellitus due to underlying condition with hyperglycemia (ICD-10 - E08.65) Chadwick is 74 years old gentleman with insulin-dependen t DM type II, coronary artery disease, status [...] be applying a 4 x 4 gauze. Insulin-dependen t DM type II.Continue with his home medication without any changes Coronary artery disease/intracar diac thrombus/CHF/sta tus post ICD placement. He is stable cardiac gutierres. He is on warfarin and INR is monitored by cardiology. Hypertension/hyp erlipidemia. Blood pressure well controlled on current regimen and last lipid panel was within normal limits. 02/09/2025 Encounter for general adult medical examination without abnormal findings (ICD-10 - Z00.00) Chadwick is 74 years old gentleman with insulin-dependen t DM type II, coronary artery disease, status post CABG, CHF, status post ICD placement, hypertension, hyperlipidemia, polycythemia vera, chronic kidney disease is here for adult physical Insulin-dependen t DM type II.His fasting sugars and A1c is within reasonable range. Continue current regimen and he is on atorvastatin 80 mg daily. He has seen stereo map plotter operator. Foot care were discussed and he sees podiatry Dr. Courtney on regular basis. Coronary artery disease/intracar diac thrombus/CHF/sta tus post ICD placement. He is stable cardiac gutierres. He is on warfarin and INR is monitored by cardiology. Hypertension/hyp erlipidemia. Blood pressure well controlled on current regimen and last lipid panel was within normal limits. Chronic kidney disease stage IIIb. He follows up with Dr. Coyle. He is stable and he is on Lasix 40 mg daily. 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 He started on levothyroxine 25 mcg and he will check TSH/T4 in 4-6 weeks. He is up to date on age specific screening. He is full code and his brother is his healthcare proxy. 07/23/2024 Type 2 diabetes mellitus with unspecified complications (ICD-10 - E11.8) Chadwick is 72 years old gentleman with insulin-dependen t DM type II, coronary artery disease, status post CABG, CHF, status post ICD placement, hypertension, hyperlipidemia, polycythemia vera, chronic kidney disease is here today for follow-up. Plan is as follows Insulin-dependen t DM type II. His A1c has improved and it was 6.3 which is in a very good range. He is on the right medications. He follows up with mix house tender Dr. Coyle. He is seen stereo map plotter operator. Foot care discussed with the patient. Repeat hemoglobin A1c before next appointment. He is on statins. Coronary artery disease/intracar diac thrombus/CHF/sta tus post ICD placement. He is stable cardiac gutierres. He is on warfarin and INR is monitored by cardiology. His ICD is interrogated on a regular basis. He does not appear to be in volume overload and he is currently on Entresto 24/26 mg and also on Jardiance. He follows up with Dr. Fofana. Hypertension/hyp erlipidemia. Blood pressure well controlled on current regimen [...] Chadwick is 72 years old gentleman with insulin-dependen t DM type II, coronary artery disease, status post CABG, CHF, status post ICD placement, hypertension, hyperlipidemia, polycythemia vera, chronic kidney disease is here today for follow-up. Plan is as follows Insulin-dependen t DM type II. His A1c has improved and it was 6.3 which is in a very good range. He is on the right medications. He follows up with mix house tender Dr. Coyle. He is seen stereo map plotter operator. Foot care discussed with the patient. Repeat hemoglobin A1c before next appointment. He is on statins. Coronary artery disease/intracar diac thrombus/CHF/sta tus post ICD placement. He is stable cardiac gutierres. He is on warfarin and INR is monitored by cardiology. His ICD is interrogated on a regular basis. He does not appear to be in volume overload and he is currently on Entresto 24/26 mg and also on Jardiance. He follows up with Dr. Fofana. Hypertension/hyp erlipidemia. Blood pressure well controlled on current regimen and last lipid panel was within normal limits. Chronic kidney disease. He is stable at this point and he follows up with Dr. Coyle Polycythemia verniko. He follows up with Dr. Butcher and he has lobotomies every 6 months. Screening blood work before next appointment 02/09/2025 Diabetes mellitus due to underlying condition with hyperglycemia (ICD-10 - E08.65) Chadwick is 74 years old gentleman with insulin-dependen t DM type II, coronary artery disease, status post CABG, CHF, status post ICD placement, hypertension, hyperlipidemia, polycythemia vera, chronic kidney disease is here for adult physical Insulin-dependen t DM type II.His fasting sugars and A1c is within reasonable range. Continue current regimen and he is on atorvastatin 80 mg daily. He has seen stereo map plotter operator. Foot care were discussed and he sees podiatry Dr. Courtnye on regular basis. Coronary artery disease/intracar diac thrombus/CHF/sta tus post ICD placement. He is stable cardiac gutierres. He is on warfarin and INR is monitored by cardiology. Hypertension/hyp erlipidemia. Blood pressure well controlled on current regimen and last lipid panel was within normal limits. Chronic kidney disease stage IIIb. He follows up with Dr. Coyle. He is stable and he is on Lasix 40 mg daily. 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 He started on levothyroxine 25 mcg and he will check TSH/T4 in 4-6 weeks. He is up to date on age specific screening. He is full code and his brother is his healthcare proxy. 11/28/2024 Atherosclerosis of coronary artery bypass graft(s) without angina pectoris (ICD-10 - I25.810) Chadwick is 74 years old gentleman with insulin-dependen t DM type II, coronary artery disease, status [...] be applying a 4 x 4 gauze. Insulin-dependen t DM type II.Continue with his home medication without any changes Coronary artery disease/intracar diac thrombus/CHF/sta tus post ICD placement. He is stable cardiac gutierres. He is on warfarin and INR is monitored by cardiology. Hypertension/hyp erlipidemia. Blood pressure well controlled on current regimen and last lipid panel was within normal limits. 07/23/2024 Intracardiac thrombosis, not elsewhere classified (ICD-10 - I51.3) Chadwick is 72 years old gentleman with insulin-dependen t DM type II, coronary artery disease, status post CABG, CHF, status post ICD placement, hypertension, hyperlipidemia, polycythemia vera, chronic kidney disease is here today for follow-up. Plan is as follows Insulin-dependen t DM type II. His A1c has improved and it was 6.3 which is in a very good range. He is on the right medications. He follows up with mix house tender Dr. Coyle. He is seen stereo map plotter operator. Foot care discussed with the patient. Repeat hemoglobin A1c before next appointment. He is on statins. Coronary artery disease/intracar diac thrombus/CHF/sta tus post ICD placement. He is stable cardiac gutierres. He is on warfarin and INR is monitored by cardiology. His ICD is interrogated on a regular basis. He does not appear to be in volume overload and he is currently on Entresto 24/26 mg and also on Jardiance. He follows up with Dr. Fofana. Hypertension/hyp erlipidemia. Blood pressure well controlled on current regimen and last lipid panel was within normal limits. Chronic kidney disease. He is stable at this point and he follows up with Dr. Leonides nicholas. He follows up with Dr. Butcher and he has lobotomies every 6 months. Screening blood work before next appointment 02/09/2025 Atherosclerosis of coronary artery bypass graft(s) without angina pectoris (ICD-10 - I25.810) Chadwick is 74 years old gentleman with insulin-dependen t DM type II, coronary artery disease, status post CABG, CHF, status post ICD placement, hypertension, hyperlipidemia, polycythemia vera, chronic kidney disease is here for adult physical Insulin-dependen t DM type II.His fasting sugars and A1c is within reasonable range. Continue current regimen and he is on atorvastatin 80 mg daily. He has seen stereo map plotter operator. Foot care were discussed and he sees podiatry Dr. Courtney on regular basis. Coronary artery disease/intracar diac thrombus/CHF/sta tus post ICD placement. He is stable cardiac gutierres. He is on warfarin and INR is monitored by cardiology. Hypertension/hyp erlipidemia. Blood pressure well controlled on current regimen and last lipid panel was within normal limits. Chronic kidney disease stage IIIb. He follows up with Dr. Coyle. He is stable and he is on Lasix 40 mg daily. 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 He started on levothyroxine 25 mcg and he will check TSH/T4 in 4-6 weeks. He is up to date on age specific screening. He is full code and his brother is his healthcare proxy. 07/23/2024 Essential (primary) hypertension (ICD-10 - I10) Chadwick is 72 years old gentleman with insulin-dependen t DM type II, coronary artery disease, status post CABG, CHF, status post ICD placement, hypertension, hyperlipidemia, polycythemia vera, chronic kidney disease is here today for follow-up. Plan is as follows Insulin-dependen t DM type II. His A1c has improved and it was 6.3 which is in a very good range. He is on the right medications. He follows up with mix house tender Dr. Coyle. He is seen stereo map plotter operator. Foot care discussed with the patient. Repeat hemoglobin A1c before next appointment. He is on statins. Coronary artery disease/intracar diac thrombus/CHF/sta tus post ICD placement. He is stable cardiac gutierres. He is on warfarin and INR is monitored by cardiology. His ICD is interrogated on a regular basis. He does not appear to be in volume overload and he is currently on Entresto 24/26 mg and also on Jardiance. He follows up with Dr. Fofana. Hypertension/hyp erlipidemia. Blood pressure well controlled on current regimen and last lipid panel was within normal limits. Chronic kidney disease. He is stable at this point and he follows up with Dr. Coyle Polycythemia verniko. He follows up with Dr. Butcher and he has lobotomies every 6 months. Screening blood work before next appointment 02/09/2025 Essential (primary) hypertension (ICD-10 - I10) Chadwick is 74 years old gentleman with insulin-dependen t DM type II, coronary artery disease, status post CABG, CHF, status post ICD placement, hypertension, hyperlipidemia, polycythemia vera, chronic kidney disease is here for adult physical Insulin-dependen t DM type II.His fasting sugars and A1c is within reasonable range. Continue current regimen and he is on atorvastatin 80 mg daily. He has seen stereo map plotter operator. Foot care were discussed and he sees podiatry Dr. Courtney on regular basis. Coronary artery disease/intracar diac thrombus/CHF/sta tus post ICD placement. He is stable cardiac gutierres. He is on warfarin and INR is monitored by cardiology. Hypertension/hyp erlipidemia. Blood pressure well controlled on current regimen and last lipid panel was within normal limits. Chronic kidney disease stage IIIb. He follows up with Dr. Coyle. He is stable and he is on Lasix 40 mg daily. 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 He started on levothyroxine 25 mcg and he will check TSH/T4 in 4-6 weeks. He is up to date on age specific screening. He is full code and his brother is his healthcare proxy. 11/28/2024 Essential (primary) hypertension (ICD-10 - I10) Chadwick is 74 years old gentleman with insulin-dependen t DM type II, coronary artery disease, status [...] be applying a 4 x 4 gauze. Insulin-dependen t DM type II.Continue with his home medication without any changes Coronary artery disease/intracar diac thrombus/CHF/sta tus post ICD placement. He is stable cardiac gutierres. He is on warfarin and INR is monitored by cardiology. Hypertension/hyp erlipidemia. Blood pressure well controlled on current regimen and last lipid panel was within normal limits. 02/09/2025 Mixed hyperlipidemia (ICD-10 - E78.2) Chadwick is 74 years old gentleman with insulin-dependen t DM type II, coronary artery disease, status post CABG, CHF, status post ICD placement, hypertension, hyperlipidemia, polycythemia vera, chronic kidney disease is here for adult physical Insulin-dependen t DM type II.His fasting sugars and A1c is within reasonable range. Continue current regimen and he is on atorvastatin 80 mg daily. He has seen stereo map plotter operator. Foot care were discussed and he sees podiatry Dr. Courtney on regular basis. Coronary artery disease/intracar diac thrombus/CHF/sta tus post ICD placement. He is stable cardiac gutierres. He is on warfarin and INR is monitored by cardiology. Hypertension/hyp erlipidemia. Blood pressure well controlled on current regimen and last lipid panel was within normal limits. Chronic kidney disease stage IIIb. He follows up with Dr. Coyle. He is stable and he is on Lasix 40 mg daily. 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 He started on levothyroxine 25 mcg and he will check TSH/T4 in 4-6 weeks. He is up to date on age specific screening. He is full code and his brother is his healthcare proxy. 11/28/2024 Mixed hyperlipidemia (ICD-10 - E78.2) Chadwick is 74 years old gentleman with insulin-dependen t DM type II, coronary artery disease, status [...] be applying a 4 x 4 gauze. Insulin-dependen t DM type II.Continue with his home medication without any changes Coronary artery disease/intracar diac thrombus/CHF/sta tus post ICD placement. He is stable cardiac gutierres. He is on warfarin and INR is monitored by cardiology. Hypertension/hyp erlipidemia. Blood pressure well controlled on current regimen and last lipid panel was within normal limits. 07/23/2024 Mixed hyperlipidemia (ICD-10 - E78.2) Chadwick is 72 years old gentleman with insulin-dependen t DM type II, coronary artery disease, status post CABG, CHF, status post ICD placement, hypertension, hyperlipidemia, polycythemia vera, chronic kidney disease is here today for follow-up. Plan is as follows Insulin-dependen t DM type II. His A1c has improved and it was 6.3 which is in a very good range. He is on the right medications. He follows up with mix house tender Dr. Coyle. He is seen stereo map plotter operator. Foot care discussed with the patient. Repeat hemoglobin A1c before next appointment. He is on statins. Coronary artery disease/intracar diac thrombus/CHF/sta tus post ICD placement. He is stable cardiac gutierres. He is on warfarin and INR is monitored by cardiology. His ICD is interrogated on a regular basis. He does not appear to be in volume overload and he is currently on Entresto 24/26 mg and also on Jardiance. He follows up with Dr. Fofana. Hypertension/hyp erlipidemia. Blood pressure well controlled on current regimen and last lipid panel was within normal limits. Chronic kidney disease. He is stable at this point and he follows up with Dr. Leonides nicholas. He follows up with Dr. Butcher and he has lobotomies every 6 months. Screening blood work before next appointment 02/09/2025 Chronic kidney disease, stage 3b (ICD-10 - N18.32) Chadwick is 74 years old gentleman with insulin-dependen t DM type II, coronary artery disease, status post CABG, CHF, status post ICD placement, hypertension, hyperlipidemia, polycythemia vera, chronic kidney disease is here for adult physical Insulin-dependen t DM type II.His fasting sugars and A1c is within reasonable range. Continue current regimen and he is on atorvastatin 80 mg daily. He has seen stereo map plotter operator. Foot care were discussed and he sees podiatry Dr. Courtney on regular basis. Coronary artery disease/intracar diac thrombus/CHF/sta tus post ICD placement. He is stable cardiac gutierres. He is on warfarin and INR is monitored by cardiology. Hypertension/hyp erlipidemia. Blood pressure well controlled on current regimen and last lipid panel was within normal limits. Chronic kidney disease stage IIIb. He follows up with Dr. Coyle. He is stable and he is on Lasix 40 mg daily. 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 He started on levothyroxine 25 mcg and he will check TSH/T4 in 4-6 weeks. He is up to date on age specific screening. He is full code and his brother is his healthcare proxy. 07/23/2024 Encounter for screening for malignant neoplasm of prostate (ICD-10 - Z12.5) Chadwick is 72 years old gentleman with insulin-dependen t DM type II, coronary artery disease, status post CABG, CHF, status post ICD placement, hypertension, hyperlipidemia, polycythemia vera, chronic kidney disease is here today for follow-up. Plan is as follows Insulin-dependen t DM type II. His A1c has improved and it was 6.3 which is in a very good range. He is on the right medications. He follows up with mix house tender Dr. Coyle. He is seen stereo map plotter operator. Foot care discussed with the patient. Repeat hemoglobin A1c before next appointment. He is on statins. Coronary artery disease/intracar diac thrombus/CHF/sta tus post ICD placement. He is stable cardiac gutierres. He is on warfarin and INR is monitored by cardiology. His ICD is interrogated on a regular basis. He does not appear to be in volume overload and he is currently on Entresto 24/26 mg and also on Jardiance. He follows up with Dr. Fofana. Hypertension/hyp erlipidemia. Blood pressure well controlled on current regimen and last lipid panel was within normal limits. Chronic kidney disease. He is stable at this point and he follows up with Dr. Leonides nicholas. He follows up with Dr. Butcher and he has lobotomies every 6 months. Screening blood work before next appointment 02/09/2025 Hypertensive chronic kidney disease with stage 1 through stage 4 chronic kidney disease, or unspecified chronic kidney disease (ICD-10 - I12.9) Chadwick is 74 years old gentleman with insulin-dependen t DM type II, coronary artery disease, status post CABG, CHF, status post ICD placement, hypertension, hyperlipidemia, polycythemia vera, chronic kidney disease is here for adult physical Insulin-dependen t DM type II.His fasting sugars and A1c is within reasonable range. Continue current regimen and he is on atorvastatin 80 mg daily. He has seen stereo map plotter operator. Foot care were discussed and he sees podiatry Dr. Courtney on regular basis. Coronary artery disease/intracar diac thrombus/CHF/sta tus post ICD placement. He is stable cardiac gutierres. He is on warfarin and INR is monitored by cardiology. Hypertension/hyp erlipidemia. Blood pressure well controlled on current regimen and last lipid panel was within normal limits. Chronic kidney disease stage IIIb. He follows up with Dr. Coyle. He is stable and he is on Lasix 40 mg daily. 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 He started on levothyroxine 25 mcg and he will check TSH/T4 in 4-6 weeks. He is up to date on age specific screening. He is full code and his brother is his healthcare proxy. 02/09/2025 Hypothyroidism, unspecified (ICD-10 - E03.9) Chadwick is 74 years old gentleman with insulin-dependen t DM type II, coronary artery disease, status post CABG, CHF, status post ICD placement, hypertension, hyperlipidemia, polycythemia vera, chronic kidney disease is here for adult physical Insulin-dependen t DM type II.His fasting sugars and A1c is within reasonable range. Continue current regimen and he is on atorvastatin 80 mg daily. He has seen stereo map plotter operator. Foot care were discussed and he sees podiatry Dr. Courtney on regular basis. Coronary artery disease/intracar diac thrombus/CHF/sta tus post ICD placement. He is stable cardiac gutierres. He is on warfarin and INR is monitored by cardiology. Hypertension/hyp erlipidemia. Blood pressure well controlled on current regimen and last lipid panel was within normal limits. Chronic kidney disease stage IIIb. He follows up with Dr. Coyle. He is stable and he is on Lasix 40 mg daily. 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 He started on levothyroxine 25 mcg and he will check TSH/T4 in 4-6 weeks. He is up to date on age specific screening. He is full code and his brother is his healthcare proxy. Plan Of Treatment Pending Test Test Name Order Date HEMOGLOBIN A1C WITH EST GLUCOSE 10/04/19 23 PSA, SCREEN 12/21/2022 Hemoglobin [id number] 02/09/2025 TSH+Free [id number] 02/09/2025 Comp. Metabolic Panel [id number] 2024 Next Appt Details Provider Name:DIMITRY Meyer SAUL , 08/12/2025 08:30:00 AM, [address] [place] [address], [id number], Insurance Providers Payer Name Payer Address Payer Phone Subscriber Number Group Number Insured Name Patient Relationship to Insured Coverage Start Date Coverage End Date Medicare [address] [place] [phone] [id number] Neeru smithChadwick Self - patient is the insured 6 [employer] ([employer]) [address] [place], [place] [id number] Chadwick Siddiqi i Self - patient [...] Surgical History Surgery Date(Month/Year) CABG x3, [facility] 2009 aortic valve replacement, [facility] 2017 appendectomy bilateral cataract surgeries, Dr. Black 0 10/2022
--- OUTSIDE RECORDS SUMMARY | 2025-04-13 08:02 | XMS_ITS | Encounter Summary ---
Author Organization [facility] Address [address] [place] [address] Phone Care Team Providers Care Mental Health Aides Teacher Name Role Phone Noreen Sumner MD Primary Care Provider [phone] Reason for Visit * Reason Comments Med Refill Encounter Details Date Type Department Care Team (Late st Contact Info) Description 04/09/2021 Refill [facility] [address] [place] [phone] Linwood Coyle MD Social History Tobacco Use [...] on filedocumented in this encounter Care Teams Mental Health Aides Teacher Relationship Specialty Start Date End Date Noreen Sumner MD [address] [place] [id number] PCP - General Internal Medicine 05/17/21 documented as of this encounter
== END 2025-04-13 07:59 | disposition home or self-care (01) ==
LOC: HO.BBR 07:58
PROVIDERS: PCP Hospitalist; Visit Provider Internal Medicine Hematology & Oncology
DX: D45 Polycythemia vera (principal)
CPT/HCPCS: 85018; 99195

== ENCOUNTER 2025-04-23 10:42 | Outpatient (AMB) | payer MEDICARE, OTHER, SELFPAY ==
--- NOTE | 2025-04-23 10:53 | HO.NEPHOV_ITS ---
Vital Signs 04/23/25 10:58 Height 5 ft 8 in Weight 195 lb 6 oz BMI 29.7 BP 132/60 Blood Pressure Location Lt brachial Position Sitting Pulse 70 Pulse Source Pulse Oximeter Pulse Oximetry (%) 96 Oxygen Delivery Method Room Air Intake Visit Reasons: 3mon f/u w/labs-Conf Manager Telecom Required: No Accompanied by: Self / Same As Patient Allergies No Known Allergies Allergy (Verified 04/23/25 10:58) HPI Comments Details: Chadwick was seen in follow-up of his chronic kidney disease and hypertension. His blood sugar control is fair. His blood pressure has been at goal. He denies any chest pain, shortness of breath, proximal nocturnal dyspnea, orthopnea or pedal edema. He has no urinary symptoms. He is compliant with his medications. He avoids nonsteroidal anti-inflammatory medications. His serum creatinine is stable. He recently had cellulitis of RLE which is not yet resolved. He has not been taking any NSAID's. [facility] Medical History Chronic kidney disease, stage 3a Hypertension Surgical History History of cataract surgery History of appendectomy H/O aortic valve replacement Hx of CABG Family History Mother Aneurysm Father Heart attack Social History Alcohol intake: never Patient Tobacco Use Status: Never used Tobacco Review of Systems Const All systems reviewed & are unremarkable except as noted in HPI and below Physical Exam Const General: comfortable and no acute distress Orientation/consciousness: patient oriented x3 HEENT Head: Yes normocephalic Mouth: Normal oral and palatal mucosa present Eyes EOM: EOMs intact bilaterally Neck Neck: Yes supple Resp Auscultation: clear to auscultation bilaterally Cardio Jugular venous distension: no JVD Rate: regular rate GI Palpation (GI): Soft to palpation Auscultation: normal bowel sounds General: Yes no CVA tenderness Back/Spine/Pelvis Back: no CVA tenderness Skin General skin exam: no rashes or lesions noted Neuro General: patient oriented x3 and moves all extremities Extrem General: Yes no pedal edema Assessment & Plan Assessment & Plan (1) CKD (chronic kidney disease) stage 3, GFR 30-59 ml/min: Code(s): N18.30 - Chronic kidney disease, stage 3 unspecified Category: Medical Qualifiers: Chronic kidney disease stage 3 subtype: stage 3a (GFR 45-59) Qualified Code(s): N18.31 - Chronic kidney disease, stage 3a (2) Diabetic nephropathy: Code(s): E11.21 - Type 2 diabetes mellitus with diabetic nephropathy Category: Medical Qualifiers: Diabetes mellitus type: type 2 Qualified Code(s): E11.21 - Type 2 diabetes mellitus with diabetic nephropathy (3) Hypertension: Code(s): I10 - Essential (primary) hypertension Category: Medical Qualifiers: Hypertension type: primary hypertension Qualified Code(s): I10 - Essential (primary) hypertension Plan 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 His serum creatinine is stable. He is on Entresto and Jardiance. He had a F/U ECHO. We may have to hold his Entresto if his creatinine rises. He does not have any worsening proteinuria. His blood pressure is at goal at home. He avoids nonsteroidal anti- inflammatories. He maintains good hydration. He is on statins. He should continue on Allopurinol 100 mg daily. I prescribed Doxycycline for his cellulitis. I did not make any other medication changes today. Answered all questions Orders: Orders Parathyroid Hormone Intact 3 Months E11.21 - Type 2 diabetes mellitus with diabetic nephropathy, I10 - Essential (primary) hypertension, N18.31 - Chronic kidney disease, stage 3a Electrolytes 3 Months E11.21 - Type 2 diabetes mellitus with diabetic nephropathy, I10 - Essential (primary) hypertension, N18.31 - Chronic kidney disease, stage 3a Blood Urea Nitrogen 3 Months E11.21 - Type 2 diabetes mellitus with diabetic nephropathy, I10 - Essential (primary) hypertension, N18.31 - Chronic kidney disease, stage 3a Creatinine 3 Months E11.21 - Type 2 diabetes mellitus with diabetic nephropathy, I10 - Essential (primary) hypertension, N18.31 - Chronic kidney disease, stage 3a Calcium 3 Months E11.21 - Type 2 diabetes mellitus with diabetic nephropathy, I10 - Essential (primary) hypertension, N18.31 - Chronic kidney disease, stage 3a Vitamin D 25-OH Total 3 Months E11.21 - Type 2 diabetes mellitus with diabetic nephropathy, I10 - Essential (primary) hypertension, N18.31 - Chronic kidney disease, stage 3a Coding Level of Care Code Est Pt Level 4 (63651) Diagnoses Stage 3a chronic kidney disease N18.31 Chronic kidney disease stage 3 subtype: stage 3a (GFR 45-59) Diabetic nephropathy associated with type 2 diabetes mellitus E11.21 Diabetes mellitus type: type 2 Primary hypertension I10 Hypertension type: primary hypertension
[2025-04-23 10:58] VITALS: BP 132/60; PULSE 70; O2SAT 96; BMI 29.7
== END 2025-04-23 11:21 | disposition home or self-care (01) ==
LOC: HO.HKAS 10:43
PROVIDERS: PCP Hospitalist; Visit Provider Internal Medicine Nephrology
DX: N18.31 Chronic kidney disease, stage 3a (principal); E11.21 Type 2 diabetes mellitus with diabetic nephropathy; I10 Essential (primary) hypertension
CPT/HCPCS: 99214

== ENCOUNTER → 2025-04-23 10:42 | Outpatient (BNVA) | payer MEDICARE, OTHER, SELFPAY | PROVIDERS: PCP Hospitalist; Visit Provider Internal Medicine Nephrology | DX: E11.22 Type 2 diabetes mellitus with diabetic chronic kidney disease (principal); I12.9 Hypertensive chronic kidney disease with stage 1 through stage 4 chronic kidney disease, or unspecified chronic kidney disease; N18.31 Chronic kidney disease, stage 3a; E11.21 Type 2 diabetes mellitus with diabetic nephropathy | CPT/HCPCS: 99212 ==